=== PATIENT | male | born 1955 | race Caucasian/White ===

== ENCOUNTER 2017-02-17 19:37 | Inpatient (IN) | payer MEDICARE ==
[~2017-02-17] VITALS: Ht 177.8 cm; Wt 90.1 kg
[2017-02-17] MEDS: CLINDAMYCIN INJ 600 MG in SODIUM CHLORIDE 0.9% INJ 100 ML IV SCH (11:40)
[~2017-02-17 19:37] MED LIST: ACET325 NG; ACET650T10 PEG; ALPR.5 PO; CLON.3T TD; CLOT1%T TOPICAL; DABI150 PO; DIGO0.12 PO; DUONI NEB; FAMO20 PEG; FURO20 PO; KCL10 PO; LEVE500 PO; LEVEMIR SQ; METO100 PO; PRED20 PO; ST J81CH PEG; SYMB160A INH; THIA100T PO; TIOT18I INH; VALP250 PO; WARF5 PO; Z.0.OXYGENDME NC
[2017-02-17 19:53] VITALS: BP 120/68; PULSE 71; RESP 16; TEMP 98.5; O2SAT 97
[2017-02-17] MEDS ORDERED: COUM10TA PO (20:24)
[2017-02-17] MEDS ORDERED: SYMB160A INH (20:24)
[2017-02-17] MEDS ORDERED: LEVEMIR SQ (20:24)
[2017-02-17] MEDS ORDERED: ALPR.5 PO (20:24)
[2017-02-17] MEDS ORDERED: DIGO0.12 PO (20:24)
[2017-02-17] MEDS ORDERED: BACL10TA PO (20:24)
[2017-02-17] MEDS ORDERED: HYDR25TA5 PO (20:24)
[2017-02-17] MEDS ORDERED: NOVOLOGP2 SQ (20:26)
--- NOTE | 2017-02-17 21:12 | PD ---
HPI Chief Complaint: Skin Problem Time Seen by Provider: 21:09 Travel History International Travel<30 days: No Contact w/Intl Traveler<30days: No Traveled to known affect area: No History of Present Illness HPI 61-year-old male presents to the emergency department for evaluation of swelling , abscess formation to the right posterior neck. 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 Cartagena at [facility] in [place]. He states that he did have some swelling that was drained with stable removal after the surgery by his neurosurgeon. He states that he checks that his neurosurgeon couple of days ago notifying him of the swelling and he stated that he would see him on Sunday. The patient is concerned because the swelling has worsened. He reports localized pain. The patient states the swelling started again approximately 4 days ago. He denies any drainage. Patient states he has had low-grade fevers, 99-100. He has a past medical history of diabetes, hypertension, A. fib, COPD, mild TBI, encephalopathy, hepatitis C. PFSH Past Medical History Arthritis: No Asthma: No Autoimmune Disease: No Anxiety: No Depression: No Heart Rhythm Problems: Yes (afib) Cancer: No Cardiovascular Problems: Yes High Cholesterol: No Chemotherapy: No Chest Pain: No Congestive Heart Failure: No COPD: Yes Cerebrovascular Accident: No Diabetes: Yes Patient Takes Glucophage: No Endocrine: Yes Gastrointestinal Disorders: Yes GERD: No Genitourinary: No Headaches: Yes Hiatal Hernia: No Heparin Induced Thrombocytopen: No Hypertension: Yes Immune Disorder: No Implanted Vascular Access Dvce: No Kidney Stones: No Musculoskeletal: No Neurologic: Yes Psychiatric: Yes (chronic, unsure of dx) Reproductive: No Respiratory: Yes Immunizations Current: Yes Migraines: No Radiation Therapy: No Renal Failure: No Seizures: Yes Sickle Cell Disease: No Sleep Apnea: No Thyroid Disease: No Ulcer: No Tetanus Vaccination: Unknown Influenza Vaccination: Yes Past Surgical History Abdominal Surgery: No AICD: No Arteriovenous Shunt: No Cardiac Surgery: No Ear Surgery: No Endocrine Surgery: No Eye Surgery: No Genitourinary Surgery: No Gynecologic Surgery: No Insulin Pump: No Joint Replacement: No Neurologic Surgery: No Oral Surgery: No Pacemaker: No Thoracic Surgery: No Social History Alcohol Use: No Tobacco Use: No Substance Use: No Allergies-Medications (Allergen,Severity, Reaction): Coded Allergies: Penicillin (Verified Allergy, Unknown, 02/17/17) *MDRO Multi-Drug Resistant Organism (Verified Adverse Reaction, Unknown, ) MRSA Screen Positive 03/10/2016; MRSA (sputum-03/2016) Reported Meds & Prescriptions Reported Meds & Active Scripts Active Reported Novolog Inj (Insulin Aspart) 1,000 Unit/10 Ml Vial 0 SQ DIRECTED Sliding Scale as directed. Baclofen 10 Mg Tab 10 Mg PO TID PRN Xanax (Alprazolam) 0.5 Mg Tab 0.5 Mg PO Q8H PRN Levemir Inj (Insulin Detemir) 1,000 unit/ 10 ML Vial 15 Units SQ HS Do not mix with any other Insulin. Symbicort Inh (Budesonide/Formoterol Fumarate) 160-4.5 Mcg/Act Aero 2 Puff INH Q12HR Hydrochlorothiazide 25 Mg Tab 25 Mg PO DAILY Coumadin (Warfarin) 10 Mg Tab 10 Mg PO DAILY Digoxin 0.125 Mg Tab 0.125 Mg PO DAILY Review of Systems Except as stated in HPI: all other systems reviewed are Neg Physical Exam Narrative GENERAL: Well-nourished, well-developed male patient, afebrile. SKIN: Focused skin assessment warm/dry. Patient has a 12 cm x 10 cm area of fluctuance with erythema to the right posterior neck. No active drainage. HEAD: Normocephalic. Atraumatic. EYES: No scleral icterus. No injection or drainage. NECK: Supple, trachea midline. No JVD or lymphadenopathy. CARDIOVASCULAR: Regular rate and rhythm without murmurs, gallops, or rubs. RESPIRATORY: Breath sounds equal bilaterally. No accessory muscle use. Lungs sounds with expiratory wheezes noted throughout. GASTROINTESTINAL: Abdomen soft, non-tender, nondistended. MUSCULOSKELETAL: No cyanosis, or edema. BACK: Nontender without obvious deformity. No CVA tenderness. Data Data Last Documented VS Vital Signs Date Time Temp Pulse Resp B/P Pulse Ox O2 Delivery O2 Flow Rate FiO2 02/17/17 22:34 75 16 111/53 98 Nasal Cannula 2 02/17/17 19:53 98.5 Orders Iv Access Insert/Monitor (02/17/17 21:05) Complete Blood Count With Diff (02/17/17 21:05) Comprehensive Metabolic Panel (02/17/17 21:05) Act Partial Throm Time (Ptt) (02/17/17 21:05) Prothrombin Time / Inr (Pt) (02/17/17 21:05) Blood Culture (02/17/17 21:05) Lactic Acid Sepsis Protocol (02/17/17 21:05) Chest, Single Ap (02/17/17 ) Sodium Chlor 0.9% 1000 Ml Inj (Ns 1000 M (02/17/17 21:15) Ondansetron Inj (Zofran Inj) (02/17/17 21:15) Albuterol-Ipratropium Neb (Duoneb Neb) (02/17/17 21:15) Morphine Inj (Morphine Inj) (02/17/17 21:30) Vancomycin Inj (Vancomycin Inj) (02/17/17 22:30) Mri C Spine W&W/O Contrast (02/17/17 ) Mri Brain W&W/O Contrast (02/17/17 ) Potassium Chloride (Kcl) (02/17/17 22:30) Potassium Chlor 10 Meq Premix (Kcl 10 Me (02/17/17 22:30) Labs Laboratory Tests Test 02/17/17 21:30 White Blood Count 7.5 TH/MM3 Red Blood Count 5.34 MIL/MM3 Hemoglobin 13.6 GM/DL Hematocrit 41.1 % Mean Corpuscular Volume 77.0 FL Mean Corpuscular Hemoglobin 25.5 PG Mean Corpuscular Hemoglobin 33.2 % Concent Red Cell Distribution Width 15.6 % Platelet Count 192 TH/MM3 Mean Platelet Volume 7.9 FL Neutrophils (%) (Auto) 59.1 % Lymphocytes (%) (Auto) 29.4 % Monocytes (%) (Auto) 9.8 % Eosinophils (%) (Auto) 0.8 % Basophils (%) (Auto) 0.9 % Neutrophils # (Auto) 4.4 TH/MM3 Lymphocytes # (Auto) 2.2 TH/MM3 Monocytes # (Auto) 0.7 TH/MM3 Eosinophils # (Auto) 0.1 TH/MM3 Basophils # (Auto) 0.1 TH/MM3 CBC Comment DIFF FINAL Differential Comment Prothrombin Time 17.8 SEC Prothromb Time International 1.6 RATIO Ratio Activated Partial 34.5 SEC Thromboplast Time Sodium Level 129 MEQ/L Potassium Level 2.8 MEQ/L Chloride Level 86 MEQ/L Carbon Dioxide Level 36.0 MEQ/L Anion Gap 7 MEQ/L Blood Urea Nitrogen 7 MG/DL Creatinine 1.05 MG/DL Estimat Glomerular Filtration 72 ML/MIN Rate Random Glucose 128 MG/DL Lactic Acid Level 0.8 mmol/L Calcium Level 10.0 MG/DL Total Bilirubin 0.5 MG/DL Aspartate Amino Transf 23 U/L (AST/SGOT) Alanine Aminotransferase 29 U/L (ALT/SGPT) Alkaline Phosphatase 69 U/L Total Protein 7.5 GM/DL Albumin 3.9 GM/DL MDM Medical Decision Making Medical Screen Exam Complete: Yes Emergency Medical Condition: Yes Medical Record Reviewed: Yes Interpretation(s) Last Impressions Chest X-Ray 02/17/17 0000 Signed Impressions: Service Date/Time: Friday, February 17, 2017 21:07 - CONCLUSION: Slight bibasilar linear atelectasis. Noé Adams MD Differential Diagnosis abscess vs. cellulitis vs. sepsis Narrative Course 61-year-old male presents to the emergency department for evaluation of swelling and erythema to the right posterior neck. He reports history of meningioma removal from the brain stem by a physician at Dr. [facility] in [place]. Patient reports low-grade fevers at home. IV access established. CBC, CMP, PTT, PTT/INR, lactic acid, blood cultures 2 are ordered and pending. Chest x-ray and CT soft tissue of the neck with IV contrast is ordered and pending. Patient is given duoneb x 2 for wheezing. CBC shows no acute abnormality. CMP shows hyponatremia 129, hypokalemia at 2.8 , glucose 128. PT is 17.8, INR 1.6, PTT 34.5. Lactic acid is 0.8. Chest x- ray shows slight bibasilar linear atelectasis. Patient is given KCL 10meq IV and potassium 40 meq PO. I spoke with Dr. Rothman, neurosurgeon, who recommends MRI with and without contrast instead of MRI. This is ordered. He will see patient in the AM. MRI of the brain and c-spine with and without contrast are ordered and pending. Patient is given Vancomycin 1 gm IV. My attending physician, Dr. Ruiz will resume care and disposition of patient. Gissel Hughes Feb 17, 2017 21:12
[2017-02-17] MEDS ORDERED: ONDANSETRON HCL 4 MG/2 ML VIAL IV PUSH ONE (21:15)
[2017-02-17] MEDS ORDERED: SODIUM CHLOR 0.9% 1000 ML INJ 1,000 ML IV ONE (21:15)
[2017-02-17] MEDS: RESP: ALBUTEROL 2.5 MG/IPRATROPIUM 0.5 MG NEB (SCH) INH ×2 (21:28→21:29)
[2017-02-17] MEDS ORDERED: MORPHINE SULFATE 4 MG/ML INJ IV PUSH ONE (21:30)
--- NOTE | 2017-02-17 21:40 | RADRPT ---
EXAM DATE/TIME: 02/17/2017 21:07 [facility] COMPARISON: CHEST SINGLE AP, April 02, 2016, 3:46. INDICATIONS : Shortness of breath and mass on back of patients head. MEDICAL HISTORY : Chronic obstructive pulmonary disease. Hypertension Congestive heart failure. Hep. C, Seizures. SURGICAL HISTORY : Cholecystectomy. ENCOUNTER: Initial ACUITY: 1 week PAIN SCORE: 0/10 LOCATION: Bilateral chest FINDINGS: Slight bibasilar linear atelectasis is seen. Focal consolidation is not seen. Heart and mediastinum a re unremarkable for technique. CONCLUSION: Slight bibasilar linear atelectasis. Noé Adams MD on February 17, 2017 at 21:37 Board Certified Radiologist. This report was verified electronically.
[2017-02-17 21:41] LABS: AUTOMATED NEUTROPHIL # 4.4 TH/MM3 (1.8-7.7); BASOPHIL # 0.1 TH/MM3 (0-0.2); BASOPHIL % 0.9 % (0.0-2.0); EOSINOPHIL # 0.1 TH/MM3 (0-0.4); EOSINOPHIL % 0.8 % (0.0-4.0); HEMATOCRIT 41.1 % (39.0-51.0); HEMO FLAGS DIFF FINAL; LYMPH % 29.4 % (9.0-44.0); LYMPHOCYTE # 2.2 TH/MM3 (1.0-4.8); MEAN CORPUSCULAR HEMOGLOBIN 25.5 PG (27.0-34.0); MEAN CORPUSCULAR HGB CONC 33.2 % (32.0-36.0); MONO % 9.8 % (0.0-8.0); NEUT % 59.1 % (16.0-70.0); PLATELET COUNT 192 TH/MM3 (150-450); RED BLOOD COUNT 5.34 MIL/MM3 (4.50-5.90); RED CELL DISTRIBUTION WIDTH 15.6 % (11.6-17.2); WHITE BLOOD COUNT 7.5 TH/MM3 (4.0-11.0)
[2017-02-17 21:55] LABS: APTT (PATIENT) 34.5 SEC (24.3-30.1); INTERNATIONAL NORMALIZED RATIO 1.6 RATIO; PROTHROMBIN TIME - PATIENT 17.8 SEC (9.8-11.6)
[2017-02-17 22:19] LABS: ALKALINE PHOSPHATASE 69 U/L (45-117); ALT (GPT) 29 U/L (12-78); ANION GAP 7 MEQ/L (5-15); AST (GOT) 23 U/L (15-37); BLOOD UREA NITROGEN 7 MG/DL (7-18); CHLORIDE 86 MEQ/L (98-107); GLOMERULAR FILTRATION RATE 72 ML/MIN (>89); SODIUM (NA) 129 MEQ/L (136-145); TOTAL BILIRUBIN ADULT 0.5 MG/DL (0.2-1.0)
[2017-02-17 22:24] LABS: POTASSIUM 2.8 MEQ/L (3.5-5.1)
[2017-02-17] MEDS ORDERED: POTASSIUM CHLOR 10 MEQ PREMIX 100 ML IV ONE (22:30)
[2017-02-17] MEDS ORDERED: POTASSIUM CHLORIDE 20 MEQ CONTROLLED RELEASE TAB PO ONE (22:30)
[2017-02-17] MEDS ORDERED: VANCOMYCIN INJ 1,000 MG in SODIUM CHLOR 0.9% 250 ML INJ 250 ML IV ONE (22:30)
[2017-02-17 22:34] VITALS: BP 111/53; PULSE 75; RESP 16; O2SAT 98
[2017-02-17] MEDS ORDERED: CLINDAMYCIN INJ 600 MG in SODIUM CHLORIDE 0.9% INJ 100 ML IV ONE (23:00)
[2017-02-17] MEDS ORDERED: SODIUM CHLORID 0.9% 500 ML INJ 500 ML IV ONE (23:15)
[2017-02-17] MEDS ORDERED: HYDROmorphone HCL PF 1 MG/ML VIAL IV PUSH ONE (23:15)
[2017-02-18] VITALS (10 sets, daily range): BP systolic 84–110; BP diastolic 52–69; PULSE 67–105; RESP 16–18; TEMP 96.4–97.8; O2SAT 94–99
[2017-02-18] MEDS ORDERED: IOHEXOL 350 MG/ML 10 ML VIAL (for RAD DIAG) IV ONE (01:05)
--- NOTE | 2017-02-18 01:15 | RADRPT ---
EXAM DATE/TIME: 02/17/2017 23:37 [facility] COMPARISON: CT BRAIN W/O CONTRAST, March 22, 2016, 10:20. MRI BRAIN W/O CONTRAST, February 17, 2017, 23:37. INDICATIONS : Right neck swelling 6 weeks after posterior fossa meningioma resection. MEDICAL HISTORY : Meningioma resection SURGICAL HISTORY : Meningioma resection. ENCOUNTER: Subsequent ACUITY: 6 weeks PAIN SCORE: 5 LOCATION: Right upper neck TECHNIQUE: Multiplanar, multisequence MRI examination of the cervical spine was performed. FINDINGS: Study was abbreviated before axial images were obtained and before contrast could be given. The patie nt refused further imaging. Changes of right occipital craniotomy noted. There is a fluid collection in the craniotomy defect and overlying soft tissues of the right upper neck. The fluid collection is approximately 3.8 x 7.1 x 6.6 cm in size and, grossly, does not clearly communicate with the CSF spac es. There is mild mass effect on the lower margin of the right cerebellar hemisphere, for example ser ies 18 image 5. The fluid interdigitates focally between the posterior spinous processes of C1 and C2 but there is no mass effect on the cervical thecal sac or the cord. VERTEBRAE: Normal vertebral body height. Homogeneous marrow signal. ALIGNMENT: No evidence of subluxation. CORD: Normal configuration and signal. POST FOSSA: The cerebellar tonsils are normal in position. C2-C3: The disc is desiccated but otherwise normal. No significant foraminal or spinal stenosis demonstrated . C3-C4: The disc is desiccated. No significant loss of height. There is bulging of the disc annulus. No signi ficant foraminal or spinal stenosis demonstrated. C4-C5: The disc is desiccated and has mild loss of height. There is a small, broad posterior disc protrusion and probably a least mild bilateral uncovertebral and facet osteoarthritis. There appears to be a le ast mild foraminal stenosis on the left. There is mild spinal stenosis. C5-C6: The disc is desiccated and has moderate loss of height. There is a small, broad posterior disc osteop hyte complex and bilateral uncovertebral and facet osteoarthritis that is probably mild to moderate. There is suspected moderate right and mild left foraminal stenosis. There is mild spinal stenosis. C6-C7: The disc is desiccated and has moderate loss of height. There is a small, broad posterior disc osteop hyte complex and probably a least moderate bilateral uncovertebral and facet osteoarthritis. There is mild spinal stenosis and probably moderate bilateral foraminal stenosis. C7-T1: The disc is desiccated and has mild loss of height. Small, broad posterior disc osteophyte complex an d at least mild bilateral facet osteoarthritis present. There is mild right and moderate left foramin al stenosis. No significant spinal stenosis. CONCLUSION: 1. Limited, abbreviated study. Patient refused further imaging before axial images were obtained and before contrast could be given. 2. Postop right occipital craniotomy with a fairly large fluid collection in the craniotomy defect an d overlying soft tissues that is nonspecific but most likely a seroma. No definite communication with the CSF spaces. Mild mass effect on the right side of the cerebellum. Other than interdigitated mild ly between the posterior processes of C1 and C2, the fluid collection does not significantly impact t he cervical spine. 3. Multilevel cervical spine degenerative changes as above. There are mild degrees of spinal stenosis without cord compression or cord signal abnormality and multiple levels of upper moderate foraminal stenosis. Please see above. Beau Valle MD on February 18, 2017 at 1:01 Board Certified Radiologist. This report was verified electronically.
--- NOTE | 2017-02-18 01:27 | RADRPT ---
EXAM DATE/TIME: 02/18/2017 00:58 [facility] COMPARISON: No previous studies available for comparison. INDICATIONS : Right posterior neck pain and swelling. IV CONTRAST: 70 cc Omnipaque 350 (iohexol) IV RADIATION DOSE: 22.06 CTDIvol (mGy) MEDICAL HISTORY : Seizures. Deep venous thrombosis. Chronic obstructive pulmonary disease.Diabetes, hypertension SURGICAL HISTORY : None. ENCOUNTER: Initial ACUITY: 1 day PAIN SCALE: 5/10 LOCATION: neck TECHNIQUE: Volumetric scanning of the neck was performed. Using automated exposure control and adjustment of th e mA and/or kV according to patient size, radiation dose was kept as low as reasonably achievable to obtain optimal diagnostic quality images. FINDINGS: Patient is status post right occipital craniotomy for resection of a posterior fossa related to resec tion of a posterior fossa/skull base meningioma. Also right hemilaminotomy of C1. There is a fluid co llection in the craniotomy defect and soft tissues of the right upper neck that measures approximatel y 5.2 x 7.2 cm in greatest transaxial dimension and nearly 6 cm and proximal to distal length. It has a small component within the posterior fossa and with associated mild mass effect on the right infer olateral aspect of the cerebellum, for example series 3 image 33. No significant mass effect demonstr ated on the brainstem. I don't clearly see that the fluid collection communicates with the CSF spaces .Within the fluid collection is the craniotomy bone fragment. It is quite clearly displaced out of th e donor site. There are malleable plates attached to the craniotomy bone fragment. A loose screw is s een anteriorly within the fluid collection, series 4 image 42. CONCLUSION: 1. Right occipital craniotomy changes with an associated fluid collection as above, thought to most l ikely be a seroma. 2. The attempted fixation of the craniotomy bone fragment has failed. The bone fragment and 3 malleab le plates are displaced into the fluid collection. There is a loose screw but the 3 plates appear att ached to the craniotomy bone fragment by at least one screw each. Beau Valle MD on February 18, 2017 at 1:15 Board Certified Radiologist. This report was verified electronically.
--- NOTE | 2017-02-18 01:34 | RADRPT ---
EXAM DATE/TIME: 02/17/2017 23:37 [facility] COMPARISON: No previous studies available for comparison. INDICATIONS : Mass. CONTRAST: 0 cc Omniscan (gadodiamide) IV MEDICAL HISTORY : Chronic obstructive pulmonary disease. Hypertension. Diabetes mellitus type 2. Seizures, Brainstem me ningioma SURGICAL HISTORY : Brainstem meningioma sx five weeks ago. ENCOUNTER: Initial ACUITY: 3 months PAIN SCORE: 9/10 LOCATION: Right upper neck region. TECHNIQUE: Multiplanar, multisequence MRI of the brain was performed without contrast. FINDINGS: Limited study done, including axial and sagittal T1 images and axial diffusion weighted images. The p atient refused further imaging and contrast administration. Cerebral hemispheres have a grossly reilly l appearance. There is no evidence of infarction. Patient has had a right occipital craniotomy. A charging crane operator niotomy defect is present and with a fluid collection measuring approximately 5.2 x 7.2 x 6.0 cm with in the defect and soft tissues of the right, posterior upper neck. Evaluation is limited but I not co nvinced the fluid collection communicates with the CSF spaces. There is mild mass effect on the right cerebellar hemisphere. There is adequate CSF space around the brainstem noted. Mucoperiosteal thickening seen of the left maxillary cell. CONCLUSION: 1. Limited, abbreviated study. Please see above. 2. Right occipital craniotomy defect with a fluid collection, presumably a seroma. 3. No bleed or evidence of infarct. 4. Sinus disease. Beau Valle MD on February 18, 2017 at 1:26 Board Certified Radiologist. This report was verified electronically.
--- NOTE | 2017-02-18 01:58 | PD ---
Physical Exam Date Seen by Provider: Feb 18, 2017 Time Seen by Provider: 23:30 Narrative accepted in transfer of care from [facility] GENERAL: Well-developed elderly male in no acute distress no respiratory distress; GCS 15 SKIN: Warm and dry. HEAD: Normocephalic. EYES: No scleral icterus. No injection or drainage. NECK: Supple, trachea midline. No JVD or lymphadenopathy. Large right posterior occiput and right-sided posterior neck mass with induration tenderness around a healed postoperative site with central fluctuance. No spontaneous drainage. Decreased range of motion of neck secondary to soft tissue mass and swelling. CARDIOVASCULAR: Regular rate and rhythm without murmurs, gallops, or rubs. RESPIRATORY: Breath sounds equal bilaterally. No accessory muscle use. Data Data Last Documented VS Vital Signs Date Time Temp Pulse Resp B/P Pulse Ox O2 Delivery O2 Flow Rate FiO2 02/18/17 01:44 71 16 110/69 99 Nasal Cannula 2 02/17/17 19:53 98.5 Orders Iv Access Insert/Monitor (02/17/17 21:05) Complete Blood Count With Diff (02/17/17 21:05) Comprehensive Metabolic Panel (02/17/17 21:05) Act Partial Throm Time (Ptt) (02/17/17 21:05) Prothrombin Time / Inr (Pt) (02/17/17 21:05) Blood Culture (02/17/17 21:05) Lactic Acid Sepsis Protocol (02/17/17 21:05) Chest, Single Ap (02/17/17 ) Sodium Chlor 0.9% 1000 Ml Inj (Ns 1000 M (02/17/17 21:15) Ondansetron Inj (Zofran Inj) (02/17/17 21:15) Albuterol-Ipratropium Neb (Duoneb Neb) (02/17/17 21:15) Morphine Inj (Morphine Inj) (02/17/17 21:30) Vancomycin Inj (Vancomycin Inj) (02/17/17 22:30) Potassium Chloride (Kcl) (02/17/17 22:30) Potassium Chlor 10 Meq Premix (Kcl 10 Me (02/17/17 22:30) Clindamycin Inj (Cleocin Inj) (02/17/17 23:00) Sodium Chlorid 0.9% 500 Ml Inj (Ns 500 M (02/17/17 23:15) Hydromorphone Pf Inj (Dilaudid Pf Inj) (02/17/17 23:15) Ct Soft Tiss Neck W Iv Cont (02/18/17 ) Mri C Spine W/O Contrast (02/17/17 ) Mri Brain W/O Contrast (02/17/17 ) Iohexol 350 Inj (Omnipaque 350 Inj) (02/18/17 01:05) Electrocardiogram (02/18/17 ) Admit Order (Ed Use Only) (02/18/17 ) ^ Saline Lock (02/18/17 02:21) Resp Oxygen Fred C Titrat 1-4 L (02/18/17 ) Notify Dr: Other (02/18/17 02:21) Sodium Chloride 0.9% Flush (Ns Flush) (02/18/17 09:00) Sodium Chloride 0.9% Flush (Ns Flush) (02/18/17 02:30) Consult Neurosurgery (02/18/17 02:21) Admit To Inpatient (02/18/17 ) Vital Signs (Adult) Q4H (02/18/17 02:20) Activity Bed Rest With Brp (02/18/17 02:20) Sodium Chloride 0.9% Flush (Ns Flush) (02/18/17 02:30) Sodium Chloride 0.9% Flush (Ns Flush) (02/18/17 09:00) Acetaminophen (Tylenol) (02/18/17 02:30) Ondansetron Inj (Zofran Inj) (02/18/17 02:30) Basic Metabolic Panel (Bmp) (02/19/17 06:00) Complete Blood Count With Diff (02/19/17 06:00) Resp Oxygen Fred C Titrat 1-4 L (02/18/17 ) Scd Bilateral/Knee High GARRICK.BID (02/18/17 02:20) Naloxone Inj (Narcan Inj) (02/18/17 02:30) Inpatient Certification (02/18/17 ) Clindamycin Inj (Cleocin Inj) (02/18/17 10:00) Vancomycin Consult Pharmacy (Vancomycin (02/18/17 02:30) Diet Diabetic (02/18/17 Breakfast) Bedside Glucose GARRICK.AC&HS (02/18/17 02:20) Blood Glucose Goal (Criteria) (02/18/17 02:20) Hypoglycemia 51 - 69 Mg/Dl (02/18/17 02:20) Hypoglycemia 50 Mg/Dl Or < (02/18/17 02:20) Notify Dr: Other (02/18/17 02:20) Dextrose 50% In Tab (Vial) Inj (D50w (Vi (02/18/17 02:30) Glucagon Inj (Glucagon Inj) (02/18/17 02:30) Insulin Aspart Supplemtl Scale (Novolog (02/18/17 07:00) Labs Laboratory Tests Test 02/17/17 21:30 White Blood Count 7.5 TH/MM3 Red Blood Count 5.34 MIL/MM3 Hemoglobin 13.6 GM/DL Hematocrit 41.1 % Mean Corpuscular Volume 77.0 FL Mean Corpuscular Hemoglobin 25.5 PG Mean Corpuscular Hemoglobin 33.2 % Concent Red Cell Distribution Width 15.6 % Platelet Count 192 TH/MM3 Mean Platelet Volume 7.9 FL Neutrophils (%) (Auto) 59.1 % Lymphocytes (%) (Auto) 29.4 % Monocytes (%) (Auto) 9.8 % Eosinophils (%) (Auto) 0.8 % Basophils (%) (Auto) 0.9 % Neutrophils # (Auto) 4.4 TH/MM3 Lymphocytes # (Auto) 2.2 TH/MM3 Monocytes # (Auto) 0.7 TH/MM3 Eosinophils # (Auto) 0.1 TH/MM3 Basophils # (Auto) 0.1 TH/MM3 CBC Comment DIFF FINAL Differential Comment Prothrombin Time 17.8 SEC Prothromb Time International 1.6 RATIO Ratio Activated Partial 34.5 SEC Thromboplast Time Sodium Level 129 MEQ/L Potassium Level 2.8 MEQ/L Chloride Level 86 MEQ/L Carbon Dioxide Level 36.0 MEQ/L Anion Gap 7 MEQ/L Blood Urea Nitrogen 7 MG/DL Creatinine 1.05 MG/DL Estimat Glomerular Filtration 72 ML/MIN Rate Random Glucose 128 MG/DL Lactic Acid Level 0.8 mmol/L Calcium Level 10.0 MG/DL Total Bilirubin 0.5 MG/DL Aspartate Amino Transf 23 U/L (AST/SGOT) Alanine Aminotransferase 29 U/L (ALT/SGPT) Alkaline Phosphatase 69 U/L Total Protein 7.5 GM/DL Albumin 3.9 GM/DL [facility] Medical Record Reviewed: Yes Supervised Visit with ALBERT: Yes Interpretation(s) EKG normal sinus rhythm first degree AV block no acute ST elevation or injury pattern change noted Last Impressions Chest X-Ray 02/17/17 0000 Signed Impressions: Service Date/Time: Friday, February 17, 2017 21:07 - CONCLUSION: Slight bibasilar linear atelectasis. Noé Adams MD CBC & BMP Diagram 02/17/17 21:30 CT soft tissue neck w/ contrast: CONCLUSION: 1. Right occipital craniotomy changes with an associated fluid collection as above, thought to most likely be a seroma. 2. The attempted fixation of the craniotomy bone fragment has failed. The bone fragment and 3 malleable plates are displaced into the fluid collection. There is a loose screw but the 3 plates appear attached to the craniotomy bone fragment by at least one screw each. Beau Valle MD on February 18, 2017 at 1:15 Board Certified Radiologist. This report was verified electronically. Differential Diagnosis Cellulitis, seroma, mass, abscess Narrative Course Case discussed with neurosurgery imaging studies ordered MR tech at bedside reporting patient refusing imaging study this was discussed in detail with the patient who is agreeable with proceeding with imaging study with administration of pain medication; additional pain medicine Dilaudid 0.5 mg IV administered Patient still and imaging Patient returned from digital imaging technician reports that patient very difficult to scan with limited imaging studies able to be performed patient voicing no complaints or concerns other than ongoing neck discomfort but does not request any pain medication at this time; in view of difficulty with MR studies will proceed with CT of the soft tissue neck with IV contrast Imaging studies remain pending At 1:50 AM review of imaging studies that have been resulted identifies fluid collection that is suspicious for seroma however shows that craniotomy was not successful; call placed to neurosurgeon radio communications superintendent Case discussed in detail with neurosurgery because patient to be admitted to medicine will consult on the patient in the a.m. with anticipated surgery on Sunday and Coumadin is to be held. Patient is aware plan for admission and is agreeable to this. Physician Communication Physician Communication call placed to TRE dover resulted and discussed --admit to medicine, hold coumadin Diagnosis Primary Impression: Seroma Additional Impressions: A-fib Qualified Code: I48.2 - Chronic atrial fibrillation COPD (chronic obstructive pulmonary disease) Qualified Code: J44.9 - Chronic obstructive pulmonary disease, unspecified COPD type Admitting Information Admitting Physician Requests: Admit Eva Ruiz MD Feb 18, 2017 01:58
[2017-02-18] MEDS ORDERED: ACETAMINOPHEN 325 MG TAB PO PRN (02:30)
[2017-02-18] MEDS ORDERED: NALOXONE HCL 0.4 MG/ML AMP IV PRN (02:30)
[2017-02-18] MEDS ORDERED: SODIUM CHLORIDE 0.9% FLUSH 10 ML FLUSH IVF PRN (02:30)
[2017-02-18] MEDS ORDERED: DEXTROSE 50% IN WATER 50 ML VIAL(D50) IV PUSH PRN (02:30)
[2017-02-18] MEDS ORDERED: Vancomycin Consult Pharmacy 1 EA OTHER SCH (02:30)
[2017-02-18] MEDS ORDERED: GLUCAGON 1 MG/ML VIAL OTHER PRN (02:30)
[2017-02-18] MEDS ORDERED: ONDANSETRON HCL 4 MG/2 ML VIAL IVP PRN (02:30)
[2017-02-18] MEDS ORDERED: ACETAMINOPHEN 325 MG TAB PO ONE (02:45)
[2017-02-18] MEDS: RESP: ALBUTEROL 2.5 MG/IPRATROPIUM 0.5 MG NEB (PRN) NEB ×2 (05:26→13:21)
[2017-02-18] MEDS: BACLOFEN 10 MG TAB PO PRN ×2 (05:37→15:17)
[2017-02-18] MEDS: ALPRAZolam 0.5 MG TAB PO PRN ×3 (05:37→23:35)
[2017-02-18] MEDS: INSULIN ASPART SUPPLEMENTAL SCALE SQ SCH ×4 (06:50→21:01)
[2017-02-18] MEDS: DIGOXIN 0.125 MG TAB PO SCH (08:34)
[2017-02-18] MEDS: HYDROCHLOROTHIAZIDE 25 MG TAB PO SCH ×2 (08:36→09:00)
[2017-02-18] MEDS: SODIUM CHLORIDE 0.9% FLUSH 10 ML FLUSH IV FLUSH SCH ×2 (08:36→21:00)
[2017-02-18] MEDS: BUDESONIDE-FORMOTEROL 160/4.5 MCG INHALER INH SCH ×2 (09:00→21:00)
[2017-02-18] MEDS ORDERED: SODIUM CHLORIDE 0.9% FLUSH 10 ML FLUSH IV FLUSH SCH (09:00)
[2017-02-18] MEDS: VANCOMYCIN 1,000 MG/NS 250 ML IV SCH ×4 (11:57→23:36)
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
--- NOTE | 2017-02-18 12:42 | PD.CONS ---
REASON FOR CONSULTATION: Right suboccipital/cervical seroma/pseudomeningocele HISTORY OF PRESENT ILLNESS: 61-year-old gentleman with history of a right retromastoid approach for resection of meningioma done approximately [address] Cartagena at [facility]. Patient states that a few days after surgery he developed swelling around the surgical area. The swelling and pain has gotten progressively worse within the last few days reason why he came to the emergency department last night for evaluation. MRI of the cervical spine from 02/17/2017 showed evidence of the right occipital craniotomy and a deflated collection in the craniotomy defect and overlying the soft tissues and the right upper cervical region. The fluid collection is approximately 476 cm in size and does not clearly communicate with the CSF spaces. The CT of the cervical spine also shows right hemilaminectomy defect at the C1 level and the right C1 arch and plates are loose within the fluid collection. Patient denies any neurological deficits. Started on empiric vancomycin and clindamycin. PAST MEDICAL HISTORY: COPD, atrial fibrillation on Coumadin, hepatitis C, seizures, traumatic brain injury, diabetes mellitus, hypertension, CHF PAST SURGICAL HISTORY: As above, meningioma resection PAST SOCIAL HISTORY: no smoking, no ETOH or illicit drug use FAMILY HISTORY: no intracranial or spinal conditions ALLERGIES: MDRO, penicillin Active Medications Acetaminophen (Tylenol) 650 mg Q4H PRN PO Last administered on 02/18/17 08:36 ; Admin Dose 650 MG; Start 02/18/17 at 02:30 Acetaminophen 650 mg 650 mg ONCE ONCE PO Last administered on 02/18/17 02:42; Admin Dose 650 MG; Start 02/18/17 at 02:45; Stop 02/18/17 at 02:46; Status DC Albuterol/ Ipratropium (Duoneb Neb) 1 ampule Q15M INH Last administered on 21:29; Admin Dose 1 AMPULE; Start 02/17/17 at 21:15; Stop 02/17/17 at 21:31 ; Status DC Alprazolam (Xanax) 0.5 mg Q8H PRN PO Last administered on 02/18/17 05:37; Admin Dose 0.5 MG; Start 02/18/17 at 02:30 Baclofen (Lioresal) 10 mg TID PRN PO Last administered on 02/18/17 05:37; Admin Dose 10 MG; Start 02/18/17 at 02:30 Budesonide/ Formoterol Fumarate (Symbicort 160-4.5 Inh) 2 puff Q12HR INH; Start 02/18/17 at 09:00 Clindamycin Phosphate 600 mg/ Sodium Chloride 104 ml @ 208 mls/hr ONCE ONCE IV Last administered on 02/18/17 02:23; Admin Dose 208 MLS/HR; Start 02/17/17 at 23:00; Stop 02/17/17 at 23:29; Status DC Clindamycin Phosphate 600 mg/ Sodium Chloride 104 ml @ 208 mls/hr Q8H IV Last administered on 02/17/17 11:40; Admin Dose 208 MLS/HR; Start 02/18/17 at 10:00 Dextrose (D50w (Vial) Inj) 25 ml UNSCH PRN IV PUSH; Start 02/18/17 at 02:30 Digoxin (Lanoxin) 0.125 mg DAILY PO Last administered on 02/18/17 08:34; Admin Dose 0.125 MG; Start 02/18/17 at 09:00 Glucagon (Glucagon Inj) 1 mg UNSCH PRN OTHER; Start 02/18/17 at 02:30 Hydrochlorothiazide (Hydrodiuril) 25 mg DAILY PO; Start 02/18/17 at 09:00 Hydromorphone HCl (Dilaudid Pf Inj) 0.5 mg ONCE ONCE IV PUSH Last administered on 02/17/17 23:27; Admin Dose 0.5 MG; Start 02/17/17 at 23:15; Stop 02/17/17 at 23:16; Status DC Iohexol (Omnipaque 350 Inj) 70 ml STK-MED ONCE IV Last administered on 01:05; Admin Dose 70 ML; Start 02/18/17 at 01:05; Stop 02/18/17 at 01:06; Status DC Miscellaneous Information SPECIFIC LAB TO BE DRAWN:VANCOMY... ONCE ONCE .XX; Start 02/19/17 at 10:45; Stop 02/19/17 at 10:46 Morphine Sulfate 4 mg 4 mg ONCE ONCE IV PUSH Last administered on 02/17/17 21: 40; Admin Dose 4 MG; Start 02/17/17 at 21:30; Stop 02/17/17 at 21:31; Status DC Naloxone HCl 0.4 mg 0.4 mg UNSCH PRN IV; Start 02/18/17 at 02:30 Ondansetron HCl (Zofran Inj) 4 mg ONCE ONCE IV PUSH Last administered on 21:40; Admin Dose 4 MG; Start 02/17/17 at 21:15; Stop 02/17/17 at 21:16; Status DC Ondansetron HCl (Zofran Inj) 4 mg Q6H PRN IVP; Start 02/18/17 at 02:30 Pharmacy Profile Note (Vancomycin Consult Pharmacy) 0 ml @ 0 mls/hr UNSCH OTHER ; Start 02/18/17 at 02:30 Potassium Chloride 40 meq 40 meq ONCE ONCE PO Last administered on 02/17/17 22 :41; Admin Dose 40 MEQ; Start 02/17/17 at 22:30; Stop 02/17/17 at 22:31; Status DC Potassium Chloride 100 ml @ 100 mls/hr BOLUS ONCE IV Last administered on 02/18 00:35; Admin Dose 100 MLS/HR; Start 02/17/17 at 22:30; Stop 02/17/17 at 23 :29; Status DC Sodium Chloride (NS 1000 ml Inj) 1,000 ml @ 999 mls/hr BOLUS ONCE IV Last administered on 02/17/17 21:40; Admin Dose 999 MLS/HR; Start 02/17/17 at 21:15 ; Stop 02/17/17 at 22:15; Status DC Sodium Chloride (NS 500 ml Inj) 500 ml @ 500 mls/hr BOLUS ONCE IV Last administered on 02/18/17 00:35; Admin Dose 500 MLS/HR; Start 02/17/17 at 23:15 ; Stop 02/18/17 at 00:14; Status DC Sodium Chloride (NS Flush) 2 ml BID IV FLUSH; Start 02/18/17 at 09:00; Stop at 09:00; Status DC Sodium Chloride (NS Flush) 2 ml BID IV FLUSH Last administered on 02/18/17 08: 36; Admin Dose 2 ML; Start 02/18/17 at 09:00 Sodium Chloride (NS Flush) 2 ml UNSCH PRN IV FLUSH; Start 02/18/17 at 02:30 Sodium Chloride (NS Flush) 2 ml UNSCH PRN IVF; Start 02/18/17 at 02:30; Stop at 02:39; Status DC Vancomycin HCl/ Sodium Chloride (Vancomycin Inj/ NS 250 ml Inj) 250 ml @ 250 mls/hr ONCE ONCE IV Last administered on 02/17/17 22:34; Admin Dose 250 MLS/HR ; Start 02/17/17 at 22:30; Stop 02/17/17 at 23:29; Status DC Vancomycin HCl/ Sodium Chloride (Vancomycin Inj/ NS 250 ml Inj) 250 ml @ 250 mls/hr Q12H IV Last administered on 02/18/17 11:57; Admin Dose 250 MLS/HR; Start 02/18/17 at 11:00 REVIEW OF SYSTEMS: Constitutional: fatigue. Eyes: no infection, blurred or double vision. Cardiovascular: no chest pain or palpitations. Gastrointestinal: no nausea, vomiting or diarrhea. Genitourinary: no incontinence or painful urination. Neurological: look at HPI Hematologic: no anemia or easy bruising Musculoskeletal: look at HPI Endocrine: no unexplained changes in weight Integumentary: not known skin lesions PHYSICAL EXAMINATION: VITALS SIGNS: Vital Signs Date Time Temp Pulse Resp B/P Pulse Ox O2 Delivery O2 Flow Rate FiO2 02/18/17 08:52 96 Nasal Cannula 3.00 02/18/17 08:00 97.8 67 18 97/52 HEENT: Normocephalic/atraumatic. No facial dysmorphic features are present. Eyes, ears, nose and throat are normal and mucous membranes are moist. There is a large subcutaneous fluid collection around the right suboccipital and upper cervical region, tender. There is a well-healed incision around the right retromastoid region. No evidence of drainage or infection SKIN: devoid of any neurocutaneous disorders. CV: heart is in regular rate and rhythm without murmur. ABD: benign, soft, flat, and without hepatosplenomegaly or tenderness. EXTREM: warm and without edema, clubbing, or cyanosis. NEUROLOGICAL EXAMINATION: MENTAL STATUS: The patient is awake, alert and fully oriented with normal speech and language. CRANIAL NERVES: Pupils are equal, round, and reactive to light accommodation. Visual brody are full. No vertical or horizontal nyastagmus is noted and visual pursuits were smooth. Gaze is conjugate and extraocular movements are full and without limitation. Face symmetric, tongue midline. Shoulder shrug and sternocleidomastiod strength symmetric and strong. MOTOR: Muscle strength : Strength reported on scale of 1-5, 5 being full strength. R/L = Right/Left. UPPER EXTREMITY: Deltoid R5/L5, Biceps R5/L5, Triceps R5/L5, Wrist extensors R5/L5, Hand instrinsics R5/L5 . LOWER EXTREMITY: Iliopsoas R5/L5, Quadriceps R5/L5, Tib anterior R5/L5, EHL R5/L5, Gastrocnemius R5/L5 SENSORY: unremarkable to light touch and pinprick throughout. REFLEXES: 2+ and symmetric bilaterally. No hyperreflexia or pathological reflexes noted. 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 Patient was on Coumadin and this is on hold for now. I discussed his case in detail with Dr. Perez and he will see him in the morning tomorrow. The patient will need a surgical intervention for evaluation of the collection and repositioning of the C1 arch and plates. Currently neurologically intact and surgery will plan within the next few days when he is medically optimized. RECOMMENDATIONS: Continue empiric IV antibiotics. Medical clearance for surgical intervention to be set up by within the next few days Keep on hold Coumadin. Pain management Thank you for allowing me to participate in the care of your patient. If I can be of future assistance or should you have any questions about this or any other patient, please do not hesitate to contact me. Kirby Rothman M.D. Neurosurgeon Kirby Parsons MD Feb 18, 2017 12:42
[2017-02-18 14:15] LABS: POTASSIUM 3.3 MEQ/L (3.5-5.1)
[2017-02-18 14:20] LABS: MAGNESIUM 2.1 MG/DL (1.5-2.5)
[2017-02-18] MEDS ORDERED: ACETAMINOPHEN/HYDROcodone 325 MG/10 MG TAB PO PRN (16:00)
[2017-02-18] MEDS ORDERED: SODIUM PHOSPHATE INJ 15 MMOL in SODIUM CHLORIDE 0.9% INJ 150 ML IV ONE (17:15)
[2017-02-18] MEDS ORDERED: POTASSIUM CHLORIDE 20 MEQ CONTROLLED RELEASE TAB PO ONE (17:15)
[2017-02-18] MEDS: CLINDAMYCIN INJ 600 MG in SODIUM CHLORIDE 0.9% INJ 100 ML IV SCH (18:05)
[2017-02-18] MEDS: RESP: ALBUTEROL 2.5 MG/IPRATROPIUM 0.5 MG NEB (SCH) NEB ×2 (18:20→21:46)
--- NOTE | 2017-02-18 18:43 | EKG ---
Date Performed: 02/18/2017 Time Performed: 02:51:59 PTAGE: 61 years EKG: Sinus rhythm WITH FIRST DEGREE AV BLOCK ABNORMAL ECG PREVIOUS TRACING : 03/26/2016 01.24 Compared to the previous tracing [place] longer DOCTOR: Ron Holley Interpretating Date/Time 02/18/2017 18:41:14
[2017-02-18] MEDS: guaiFENesin E.R. 600 MG TAB PO SCH (21:01)
[2017-02-18] MEDS: oxyCODONE/ACETAMINOPHEN 10 MG/325 MG TAB PO PRN (21:02)
[2017-02-19] VITALS (8 sets, daily range): BP systolic 95–122; BP diastolic 45–75; PULSE 64–122; RESP 16–20; TEMP 97.2–98.9; O2SAT 93–98
[2017-02-19] MEDS: CLINDAMYCIN INJ 600 MG in SODIUM CHLORIDE 0.9% INJ 100 ML IV SCH ×3 (02:28→17:55)
[2017-02-19] MEDS: oxyCODONE/ACETAMINOPHEN 10 MG/325 MG TAB PO PRN ×4 (03:40→21:27)
[2017-02-19] MEDS: RESP: ALBUTEROL 2.5 MG/IPRATROPIUM 0.5 MG NEB (SCH) NEB ×4 (04:18→21:21)
[2017-02-19] MEDS: INSULIN ASPART SUPPLEMENTAL SCALE SQ SCH ×4 (07:00→21:00)
[2017-02-19 07:40] LABS: AUTOMATED NEUTROPHIL # 3.1 TH/MM3 (1.8-7.7); BASOPHIL % 0.6 % (0.0-2.0); EOSINOPHIL # 0.1 TH/MM3 (0-0.4); EOSINOPHIL % 1.1 % (0.0-4.0); HEMATOCRIT 34.2 % (39.0-51.0); HEMO FLAGS DIFF FINAL; LYMPH % 24.2 % (9.0-44.0); LYMPHOCYTE # 1.2 TH/MM3 (1.0-4.8); MEAN CELL VOLUME 78.5 FL (80.0-100.0); MEAN CORPUSCULAR HEMOGLOBIN 25.4 PG (27.0-34.0); MEAN CORPUSCULAR HGB CONC 32.4 % (32.0-36.0); MONO % 10.5 % (0.0-8.0); NEUT % 63.6 % (16.0-70.0); PLATELET COUNT 151 TH/MM3 (150-450); RED BLOOD COUNT 4.36 MIL/MM3 (4.50-5.90); RED CELL DISTRIBUTION WIDTH 15.9 % (11.6-17.2); WHITE BLOOD COUNT 4.9 TH/MM3 (4.0-11.0)
[2017-02-19 08:16] LABS: BICARBONATE 27.3 MEQ/L (21.0-32.0); POTASSIUM 3.4 MEQ/L (3.5-5.1)
[2017-02-19] MEDS: DIGOXIN 0.125 MG TAB PO SCH (08:25)
[2017-02-19] MEDS: guaiFENesin E.R. 600 MG TAB PO SCH ×2 (08:25→21:27)
[2017-02-19] MEDS: HYDROCHLOROTHIAZIDE 25 MG TAB PO SCH (08:26)
[2017-02-19] MEDS: SODIUM CHLORIDE 0.9% FLUSH 10 ML FLUSH IV FLUSH SCH ×2 (08:27→21:00)
[2017-02-19] MEDS: BUDESONIDE-FORMOTEROL 160/4.5 MCG INHALER INH SCH ×2 (08:28→21:00)
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
[2017-02-19] MEDS ORDERED: POTASSIUM CHLORIDE 20 MEQ CONTROLLED RELEASE TAB PO ONE ×2 (09:30→11:30)
[2017-02-19] MEDS ORDERED: PHARMACY ORDERED LAB ONE (10:45)
[2017-02-19] MEDS: ACETAMIN 325 MG/BUTALBITAL 50 MG/CAFFEINE 40 MG TAB PO PRN (10:51)
[2017-02-19] MEDS: SODIUM CHLOR 0.9% 1000 ML INJ 1,000 ML IV SCH ×2 (11:11→21:27)
[2017-02-19] MEDS: VANCOMYCIN 1,000 MG/NS 250 ML IV SCH ×4 (12:18→21:28)
[2017-02-19] MEDS: ALPRAZolam 0.5 MG TAB PO PRN (16:16)
--- NOTE | 2017-02-19 17:34 | HHI.NSPN ---
(Reji Paez) Note Status Status: Progress Note (PhilippeReji HERMAN) Interval History Interval History 02/18: 61-year-old gentleman with history of a right retromastoid approach for resection of meningioma done approximately [address] Cartagena at [facility]. Patient states that a few days after surgery he developed swelling around the surgical area. The swelling and pain has gotten progressively worse within the last few days reason why he came to the emergency department last night for evaluation. MRI of the cervical spine from 02/17/2017 showed evidence of the right occipital craniotomy and a deflated collection in the craniotomy defect and overlying the soft tissues and the right upper cervical region. The fluid collection is approximately 476 cm in size and does not clearly communicate with the CSF spaces. The CT of the cervical spine also shows right hemilaminectomy defect at the C1 level and the right C1 arch and plates are loose within the fluid collection. Patient denies any neurological deficits. Started on empiric vancomycin and clindamycin. 02/19: Patient is awake & alert when seen this afternoon. He complains of neck pain, headache and numbness to the swelling on the right side of his head & neck. The patient does live in the [place] area but also stated "I don't want to deal with that samuel no more and he don't want to see me either." (Reji Paez) Labs, Micro, & Vital Signs Results Allergies Coded Allergies Type Severity Reaction Last Updated Verified Penicillin Allergy Unknown 02/17/17 Yes *MDRO Multi-Drug Resistant Organism Adverse Reaction Unknown 02/19/17 Yes Recent Impressions Neck CT 02/18/17 0000 Signed Impressions: Service Date/Time: Saturday, February 18, 2017 00:58 - CONCLUSION: 1. Right occipital craniotomy changes with an associated fluid collection as above, thought to most likely be a seroma. 2. The attempted fixation of the craniotomy bone fragment has failed. The bone fragment and 3 malleable plates are displaced into the fluid collection. There is a loose screw but the 3 plates appear attached to the craniotomy bone fragment by at least one screw each. Beau Valle MD Chest X-Ray 02/17/17 Signed Impressions: Service Date/Time: Friday, February 17, 2017 21:07 - CONCLUSION: Slight bibasilar linear atelectasis. Noé Adams MD Cervical Spine MRI 02/17/17 Signed Impressions: Service Date/Time: Friday, February 17, 2017 23:37 - CONCLUSION: 1. Limited, abbreviated study. Patient refused further imaging before axial images were obtained and before contrast could be given. 2. Postop right occipital craniotomy with a fairly large fluid collection in the craniotomy defect and overlying soft tissues that is nonspecific but most likely a seroma. No definite communication with the CSF spaces. Mild mass effect on the right side of the cerebellum. Other than interdigitated mildly between the posterior processes of C1 and C2, the fluid collection does not significantly impact the cervical spine. 3. Multilevel cervical spine degenerative changes as above. There are mild degrees of spinal stenosis without cord compression or cord signal abnormality and multiple levels of upper moderate foraminal stenosis. Please see above. Beau Valle MD Brain MRI 02/17/17 Signed Impressions: Service Date/Time: Friday, February 17, 2017 23:37 - CONCLUSION: 1. Limited, abbreviated study. Please see above. 2. Right occipital craniotomy defect with a fluid collection, presumably a seroma. 3. No bleed or evidence of infarct. 4. Sinus disease. Beau Valle MD //174/174/175// 06:00 18:00 06:00 18:00 06: 18:00 Intake Total 720 ml 480 ml 720 ml Output Total 325 ml Balance 395 ml 480 ml 720 ml Intake Oral 720 ml 480 ml 720 ml Output Urine Total 325 ml # Voids 3 2 3 # Bowel Movements 0 0 0 Laboratory Tests Test 02/17/17 02/18/17 02/19/17 02/19/17 21:30 13:12 06:30 10:55 White Blood Count 7.5 TH/MM3 4.9 TH/MM3 Red Blood Count 5.34 MIL/MM3 4.36 MIL/MM3 Hemoglobin 13.6 GM/DL 11.1 GM/DL Hematocrit 41.1 % 34.2 % Mean Corpuscular Volume 77.0 FL 78.5 FL Mean Corpuscular Hemoglobin 25.5 PG 25.4 PG Mean Corpuscular Hemoglobin 33.2 % 32.4 % Concent Red Cell Distribution Width 15.6 % 15.9 % Platelet Count 192 TH/MM3 151 TH/MM3 Mean Platelet Volume 7.9 FL 7.9 FL Neutrophils (%) (Auto) 59.1 % 63.6 % Lymphocytes (%) (Auto) 29.4 % 24.2 % Monocytes (%) (Auto) 9.8 % 10.5 % Eosinophils (%) (Auto) 0.8 % 1.1 % Basophils (%) (Auto) 0.9 % 0.6 % Neutrophils # (Auto) 4.4 TH/MM3 3.1 TH/MM3 Lymphocytes # (Auto) 2.2 TH/MM3 1.2 TH/MM3 Monocytes # (Auto) 0.7 TH/MM3 0.5 TH/MM3 Eosinophils # (Auto) 0.1 TH/MM3 0.1 TH/MM3 Basophils # (Auto) 0.1 TH/MM3 0.0 TH/MM3 CBC Comment DIFF FINAL DIFF FINAL Differential Comment Prothrombin Time 17.8 SEC Prothromb Time International 1.6 RATIO Ratio Activated Partial 34.5 SEC Thromboplast Time Sodium Level 129 MEQ/L 136 MEQ/L Potassium Level 2.8 MEQ/L 3.3 MEQ/L 3.4 MEQ/L Chloride Level 86 MEQ/L 100 MEQ/L Carbon Dioxide Level 36.0 MEQ/L 27.3 MEQ/L Anion Gap 7 MEQ/L 9 MEQ/L Blood Urea Nitrogen 7 MG/DL 6 MG/DL Creatinine 1.05 MG/DL 0.85 MG/DL Estimat Glomerular Filtration 72 ML/MIN 91 ML/MIN Rate Random Glucose 128 MG/DL 139 MG/DL Lactic Acid Level 0.8 mmol/L Calcium Level 10.0 MG/DL 9.0 MG/DL Total Bilirubin 0.5 MG/DL Aspartate Amino Transf 23 U/L (AST/SGOT) Alanine Aminotransferase 29 U/L (ALT/SGPT) Alkaline Phosphatase 69 U/L Total Protein 7.5 GM/DL Albumin 3.9 GM/DL Phosphorus Level 2.3 MG/DL Magnesium Level 2.1 MG/DL Vancomycin Level Trough 11.0 MCG/ML Test 02/19/17 11:10 Nasal Screen MRSA (PCR) MRSA DETECTED Constitutional Vital Signs Date Time Temp Pulse Resp B/P Pulse Ox O2 Delivery O2 Flow Rate FiO2 02/19/17 16:00 97.3 64 18 98/61 98 02/19/17 11:56 97.9 73 18 99/60 95 02/19/17 09:20 97 Nasal Cannula 3.00 02/19/17 08:22 Nasal Cannula 3.00 Humidified 02/19/17 08:00 97.2 73 18 114/45 97 02/19/17 04:20 97 Nasal Cannula 3.00 02/19/17 00:00 98.9 82 16 95/58 94 02/18/17 20:00 97.7 105 17 90/59 95 02/18/17 18:39 97 Nasal Cannula 3.00 02/19/17 07:00 Intake Total 1080 ml Balance 1080 ml (Reji Paez) Review of Systems/Exam ROS Constitutional: Patient states he is tired. He denies any fever or chills. HEENT: Swelling and numbness to the right side of the head and neck. Neck: Swelling and numbness to the right side of the head and neck. Respiratory: He has some shortness of breath, but denies any productive cough. Cardiac: He denies any chest pain, palpitations or irregular heart beat. GI: He denies any abdominal pain, nausea, vomiting or bowel incontinence. : He denies any bladder incontinence. Back: He denies any back pain. Extremities: He denies any arm or leg pain or weakness. Exam General: Well developed, well nourished male who appears his stated age, NAD. HEENT: Right parietoccipital scalp swelling, warmth & erythema TTP w/decreased sensation extending to the right posterolateral neck. Neck: Midline & right posterolateral neck swelling, warmth & erythema TTP w/ decreased sensation extending to the right parietoccipital scalp. No JVD, trachea midline. Respiratory: CTAB w/o W/R/R but decreased, equal excursion, non-laboured, on NC. CV: S1S2 w/RRR w/o M/G/R. GI: Abdomen soft, nontender, obese, positive bowel sounds. Extremities: BLEVINS, no evident deformity, discolouration or clubbing. Back: Thoracolumbar spine NTTP, no step-off or deformity, no evident wounds. Neuro: AAOx3. Speech clear & appropriate. Follows commands. Sensation grossly intact to light touch to the extremities. Motor strength 5/5 to LUE & BLE and 4/ 5 to RUE. (Reji Paez) Medications Current Medications Current Medications Medications (Trade) Dose Ordered Sig/Umu Route Start Time Stop Time Status Last Admin (NS Flush) 2 ml UNSCH PRN IV FLUSH 02/18/17 02:30 (NS Flush) 2 ml BID IV FLUSH 02/18/17 09:00 02/19/17 08:27 (Tylenol) 650 mg Q4H PRN PO 02/18/17 02:30 02/18/17 08:36 (Zofran Inj) 4 mg Q6H PRN IVP 02/18/17 02:30 Naloxone HCl 0.4 mg 0.4 mg UNSCH PRN IV 02/18/17 02:30 Clindamycin Phosphate 600 mg/ Sodium Chloride 104 ml @ 208 mls/hr Q8H IV 02/18/17 10:00 02/19/17 10:54 (Vancomycin Consult Pharmacy) 0 ml @ 0 mls/hr UNSCH OTHER 02/18/17 02:30 (D50w (Vial) Inj) 25 ml UNSCH PRN IV PUSH 02/18/17 02:30 (Glucagon Inj) 1 mg UNSCH PRN OTHER 02/18/17 02:30 (Xanax) 0.5 mg Q8H PRN PO 02/18/17 02:30 02/19/17 16:16 (Lioresal) 10 mg TID PRN PO 02/18/17 02:30 02/18/17 15:17 (Symbicort 160-4.5 Inh) 2 puff Q12HR INH 02/18/17 09:00 02/19/17 08:28 (Lanoxin) 0.125 mg DAILY PO 02/18/17 09:00 02/19/17 08:25 Hydrochlorothiazide 25 mg 25 mg DAILY PO 02/18/17 09:00 Vancomycin HCl 1000 mg/Sodium Chloride 250 ml @ 250 mls/hr Q12H IV 02/18/17 11:00 02/19/17 12:18 (NS 1000 ml Inj) 1,000 ml @ 42 mls/hr [id number] IV 02/18/17 15:30 02/19/17 11:11 (Dilaudid Pf Inj) 0.5 mg Q4H PRN IV PUSH 02/18/17 16:00 (Percocet 10-325 Mg) 1 tab Q4H PRN PO 02/18/17 20:00 02/19/17 13:22 (Mucinex Er) 600 mg BID PO 02/18/17 21:00 02/19/17 08:25 (Fioricet 325-50-40) 1 tab Q8H PRN PO 02/19/17 09:15 02/19/17 10:51 (Reji Paez) Medical Decision Making MDM Remarks 1. 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 Right hemilaminectomy defect at the C1 level w/the right C1 arch and plates loose within the fluid collection Patient remains neurologically intact. (Reji Paez) Plan Plan Remarks Continue empiric IV antibiotics. Medical clearance for surgical intervention. Hold Coumadin. Pain management. Primary mgmt per Attending. (Reji Paez) Attending Statement I have personally seen and examined the patient on the date of this note. Pertinent documentation and study results have been reviewed by the undersigned. I have personally developed the treatment plan and performed medical decision making. Agree with findings, exam, and treatment plan as noted above. Patient awake and alert Mild scanning type dysarthria The right occipital-neck incision is relatively well-healed, no drainage but quite tense with mild erythema. No nuchal rigidity Discussed at length with the patient today. We will try to locate his preoperative imaging study to try to determine the extent of the dural involvement. Also obtain operative report. Uncertain whether he has a dural graft in place or a primary dural closure. We will discuss further with the patient once above information is obtained ( Jose De Jesus Perez MD) Reji Paez February 19, 2017 17:34 Jose De Jesus Perez MD February 19, 2017 22:00
[2017-02-20] VITALS (9 sets, daily range): BP systolic 97–121; BP diastolic 63–70; PULSE 66–83; RESP 16–18; TEMP 96.8–98.6; O2SAT 94–100
[2017-02-20] MEDS: CLINDAMYCIN INJ 600 MG in SODIUM CHLORIDE 0.9% INJ 100 ML IV SCH ×3 (00:22→17:48)
[2017-02-20] MEDS: oxyCODONE/ACETAMINOPHEN 10 MG/325 MG TAB PO PRN ×6 (01:30→21:57)
[2017-02-20] MEDS: ACETAMIN 325 MG/BUTALBITAL 50 MG/CAFFEINE 40 MG TAB PO PRN ×3 (03:13→20:07)
[2017-02-20] MEDS: RESP: ALBUTEROL 2.5 MG/IPRATROPIUM 0.5 MG NEB (SCH) NEB ×4 (04:00→21:41)
[2017-02-20] MEDS: INSULIN ASPART SUPPLEMENTAL SCALE SQ SCH ×4 (06:26→20:06)
[2017-02-20] MEDS: BUDESONIDE-FORMOTEROL 160/4.5 MCG INHALER INH SCH ×2 (08:37→20:08)
[2017-02-20] MEDS: HYDROCHLOROTHIAZIDE 25 MG TAB PO SCH (08:37)
[2017-02-20] MEDS: guaiFENesin E.R. 600 MG TAB PO SCH ×2 (08:37→20:07)
[2017-02-20] MEDS: SODIUM CHLORIDE 0.9% FLUSH 10 ML FLUSH IV FLUSH SCH ×2 (08:37→20:07)
[2017-02-20] MEDS: DIGOXIN 0.125 MG TAB PO SCH (08:37)
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
[2017-02-20] MEDS: VANCOMYCIN 1,000 MG/NS 250 ML IV SCH ×2 (11:39)
--- NOTE | 2017-02-20 18:09 | HHI.NSPN ---
(Reji Paez) Note Status Status: Progress Note (Reji Paez) Interval History Interval History 02/18: 61-year-old gentleman with history of a right retromastoid approach for resection of meningioma done approximately [address] Cartagena at [facility]. Patient states that a few days after surgery he developed swelling around the surgical area. The swelling and pain has gotten progressively worse within the last few days reason why he came to the emergency department last night for evaluation. MRI of the cervical spine from 02/17/2017 showed evidence of the right occipital craniotomy and a deflated collection in the craniotomy defect and overlying the soft tissues and the right upper cervical region. The fluid collection is approximately 476 cm in size and does not clearly communicate with the CSF spaces. The CT of the cervical spine also shows right hemilaminectomy defect at the C1 level and the right C1 arch and plates are loose within the fluid collection. Patient denies any neurological deficits. Started on empiric vancomycin and clindamycin. 02/19: Patient is awake & alert when seen this afternoon. He complains of neck pain, headache and numbness to the swelling on the right side of his head & neck. The patient does live in the [place] area but also stated "I don't want to deal with that samuel no more and he don't want to see me either." 02/20: Patient is doing well. He still complains of neck pain, headache with numbness above the swelling to the right side of the head & neck. (Reji Paez) Labs, Micro, & Vital Signs Constitutional Vital Signs Date Time Temp Pulse Resp B/P Pulse Ox O2 Delivery O2 Flow Rate FiO2 02/20/17 16:00 96.9 67 18 100/63 94 02/20/17 15:54 98 Nasal Cannula 3.00 02/20/17 12:00 98.6 83 18 110/70 95 02/20/17 09:31 97 Nasal Cannula 3.00 02/20/17 08:32 Nasal Cannula 3.00 Humidified 02/20/17 07:42 97.0 70 18 102/67 94 02/20/17 04:52 96 Nasal Cannula 3.00 02/20/17 04:00 98.4 66 16 121/70 100 02/20/17 00:00 97.6 78 17 97/69 98 02/19/17 21:21 95 Nasal Cannula 3.00 02/19/17 21:20 93 Nasal Cannula 3.00 Humidified 02/19/17 19:00 97.4 122 20 122/75 93 02/20/17 07:00 Intake Total 2584 ml Output Total 700 ml Balance 1884 ml (Reji Paez) Review of Systems/Exam ROS Constitutional: He denies any fever or chills. HEENT: Swelling and numbness to the right side of the head and neck. Neck: Swelling and numbness to the right side of the head and neck. Respiratory: He denies shortness of breath or productive cough. Cardiac: He denies any chest pain, palpitations or irregular heart beat. GI: He denies any abdominal pain, nausea, vomiting or bowel incontinence. : He denies any bladder incontinence. Back: He denies any back pain. Extremities: He denies any arm or leg pain or weakness. Exam General: Well developed, well nourished male who appears his stated age, NAD. HEENT: Right parietoccipital scalp swelling, warmth & erythema TTP w/decreased sensation to the scalp superior to the swelling. His head & neck are rotated down toward the left shoulder. Neck: Midline & right posterolateral neck swelling, warmth & erythema TTP. His head & neck are rotated down toward the left shoulder. No JVD, trachea midline. Respiratory: Decreased with slight expiratory wheeze bilaterally, equal excursion, non-laboured, on NC. CV: S1S2 w/RRR w/o M/G/R. GI: Abdomen soft, nontender, obese, positive bowel sounds. Extremities: BLEVINS, no evident deformity, discolouration or clubbing. Neuro: AAOx3. Speech clear & appropriate. Follows commands. Sensation grossly intact to light touch to the extremities. Motor strength 5/5 to LUE & BLE and 4/ 5 to RUE. (Reji Paez) Medications Current Medications Current Medications Medications (Trade) Dose Ordered Sig/Umu Route Start Time Stop Time Status Last Admin (NS Flush) 2 ml UNSCH PRN IV FLUSH 02/18/17 02:30 (NS Flush) 2 ml BID IV FLUSH 02/18/17 09:00 02/20/17 08:37 (Tylenol) 650 mg Q4H PRN PO 02/18/17 02:30 02/18/17 08:36 (Zofran Inj) 4 mg Q6H PRN IVP 02/18/17 02:30 Naloxone HCl 0.4 mg 0.4 mg UNSCH PRN IV 02/18/17 02:30 Clindamycin Phosphate 600 mg/ Sodium Chloride 104 ml @ 208 mls/hr Q8H IV 02/18/17 10:00 02/20/17 17:48 (Vancomycin Consult Pharmacy) 0 ml @ 0 mls/hr UNSCH OTHER 02/18/17 02:30 (D50w (Vial) Inj) 25 ml UNSCH PRN IV PUSH 02/18/17 02:30 (Glucagon Inj) 1 mg UNSCH PRN OTHER 02/18/17 02:30 (Xanax) 0.5 mg Q8H PRN PO 02/18/17 02:30 02/19/17 16:16 (Lioresal) 10 mg TID PRN PO 02/18/17 02:30 02/18/17 15:17 (Symbicort 160-4.5 Inh) 2 puff Q12HR INH 02/18/17 09:00 02/20/17 08:37 (Lanoxin) 0.125 mg DAILY PO 02/18/17 09:00 02/20/17 08:37 Hydrochlorothiazide 25 mg 25 mg DAILY PO 02/18/17 09:00 (NS 1000 ml Inj) 1,000 ml @ 42 mls/hr [id number] IV 02/18/17 15:30 02/19/17 21:27 (Dilaudid Pf Inj) 0.5 mg Q4H PRN IV PUSH 02/18/17 16:00 (Percocet 10-325 Mg) 1 tab Q4H PRN PO 02/18/17 20:00 02/20/17 17:48 (Mucinex Er) 600 mg BID PO 02/18/17 21:00 02/20/17 08:37 Acetaminophen/ Butalbital/ Caffeine 1 tab 1 tab Q8H PRN PO 02/19/17 09:15 02/20/17 11:36 (Vancomycin Inj/ NS 250 ml Inj) 262.5 ml @ 250 mls/hr Q12H IV 02/20/17 23:00 Miscellaneous Information SPECIFIC LAB TO BE DRAWN:VANCOMYCIN TROUGH DATE TO... ONCE ONCE .XX 02/22/17 10:45 02/22/17 10:46 (Reji Paez) Medical Decision Making MDM Remarks 1. 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 Right hemilaminectomy defect at the C1 level w/the right C1 arch and plates loose within the fluid collection Patient remains neurologically intact. (Reji Paez) Plan Plan Remarks Continue empiric IV antibiotics. Medical clearance for surgical intervention. Hold Coumadin. Pain management. Primary mgmt per Attending. The patient's is to bring in a copy of the MRI that Dr Mendez did. ( Reji Paez) Attending Statement I have personally seen and examined the patient on the date of this note. Pertinent documentation and study results have been reviewed by the undersigned. I have personally developed the treatment plan and performed medical decision making. Agree with findings, exam, and treatment plan as noted above. Discussed with patient His will bring the MRI disc to the hospital tomorrow. Need to know the extent of the initial lesion and the potential amount of dura remaining for further repair. (Jose De Jesus Perez MD) Reji Paez February 20, 2017 18:09 Jose De Jesus Perez MD February 20, 2017 18:39
[2017-02-20] MEDS: VANCOMYCIN INJ 1,250 MG in SODIUM CHLOR 0.9% 250 ML INJ 250 ML IV SCH (21:58)
[2017-02-21] VITALS (8 sets, daily range): BP systolic 106–125; BP diastolic 63–73; PULSE 68–77; RESP 17–18; TEMP 95.8–99.4; O2SAT 95–97
[2017-02-21] MEDS: CLINDAMYCIN INJ 600 MG in SODIUM CHLORIDE 0.9% INJ 100 ML IV SCH ×3 (01:20→17:26)
[2017-02-21] MEDS: ALPRAZolam 0.5 MG TAB PO PRN (01:22)
[2017-02-21] MEDS: oxyCODONE/ACETAMINOPHEN 10 MG/325 MG TAB PO PRN ×5 (02:37→20:51)
[2017-02-21] MEDS: RESP: ALBUTEROL 2.5 MG/IPRATROPIUM 0.5 MG NEB (SCH) NEB ×4 (04:10→20:53)
[2017-02-21] MEDS: INSULIN ASPART SUPPLEMENTAL SCALE SQ SCH ×4 (05:55→20:51)
[2017-02-21] MEDS: ACETAMIN 325 MG/BUTALBITAL 50 MG/CAFFEINE 40 MG TAB PO PRN ×2 (05:56→16:37)
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
[2017-02-21] MEDS: SODIUM CHLORIDE 0.9% FLUSH 10 ML FLUSH IV FLUSH SCH ×2 (09:00→20:46)
[2017-02-21] MEDS: HYDROCHLOROTHIAZIDE 25 MG TAB PO SCH (09:32)
[2017-02-21] MEDS: DIGOXIN 0.125 MG TAB PO SCH (09:32)
[2017-02-21] MEDS: guaiFENesin E.R. 600 MG TAB PO SCH ×2 (09:32→20:45)
[2017-02-21] MEDS: BUDESONIDE-FORMOTEROL 160/4.5 MCG INHALER INH SCH ×2 (09:35→20:46)
[2017-02-21] MEDS: VANCOMYCIN INJ 1,250 MG in SODIUM CHLOR 0.9% 250 ML INJ 250 ML IV SCH ×2 (10:17→22:40)
--- NOTE | 2017-02-21 11:01 | HHI.NSPN ---
(Reji Paez) Note Status Status: Progress Note (Reji Paez) Interval History Interval History 02/18: 61-year-old gentleman with history of a right retromastoid approach for resection of meningioma done approximately [address] Cartagena at [facility]. Patient states that a few days after surgery he developed swelling around the surgical area. The swelling and pain has gotten progressively worse within the last few days reason why he came to the emergency department last night for evaluation. MRI of the cervical spine from 02/17/2017 showed evidence of the right occipital craniotomy and a deflated collection in the craniotomy defect and overlying the soft tissues and the right upper cervical region. The fluid collection is approximately 476 cm in size and does not clearly communicate with the CSF spaces. The CT of the cervical spine also shows right hemilaminectomy defect at the C1 level and the right C1 arch and plates are loose within the fluid collection. Patient denies any neurological deficits. Started on empiric vancomycin and clindamycin. 02/19: Patient is awake & alert when seen this afternoon. He complains of neck pain, headache and numbness to the swelling on the right side of his head & neck. The patient does live in the [place] area but also stated "I don't want to deal with that samuel no more and he don't want to see me either." 02/20: Patient is doing well. He still complains of neck pain, headache with numbness above the swelling to the right side of the head & neck. 02/21: Patient continues to do well. He continues to have pain to the neck & back of the head with some numbness. He is currently on contact precautions due to a positive MRSA PCR per Nursing. (Reji Paez) Labs, Micro, & Vital Signs Results Allergies Coded Allergies Type Severity Reaction Last Updated Verified Penicillin Allergy Unknown 02/17/17 Yes *MDRO Multi-Drug Resistant Organism Adverse Reaction Unknown 02/19/17 Yes ////175/2/175/3/ 06:00 18:00 06:00 18:00 06:00 18:00 Intake Total 480 ml 720 ml 1864 ml 720 ml 1008 ml 240 ml Output Total 700 ml 1200 ml 600 ml 1025 ml Balance 480 ml 720 ml 1164 ml -480 ml 408 ml -785 ml Intake Oral 480 ml 720 ml 960 ml 720 ml 240 ml 240 ml IV Total 904 ml 768 ml Output Urine Total 700 ml 1200 ml 600 ml 1025 ml # Voids 2 3 3 # Bowel Movements 0 0 0 0 0 Laboratory Tests Test 02/18/17 02/19/17 02/19/17 02/19/17 13:12 06:30 10:55 11:10 Potassium Level 3.3 MEQ/L 3.4 MEQ/L Phosphorus Level 2.3 MG/DL Magnesium Level 2.1 MG/DL White Blood Count 4.9 TH/MM3 Red Blood Count 4.36 MIL/MM3 Hemoglobin 11.1 GM/DL Hematocrit 34.2 % Mean Corpuscular Volume 78.5 FL Mean Corpuscular Hemoglobin 25.4 PG Mean Corpuscular Hemoglobin 32.4 % Concent Red Cell Distribution Width 15.9 % Platelet Count 151 TH/MM3 Mean Platelet Volume 7.9 FL Neutrophils (%) (Auto) 63.6 % Lymphocytes (%) (Auto) 24.2 % Monocytes (%) (Auto) 10.5 % Eosinophils (%) (Auto) 1.1 % Basophils (%) (Auto) 0.6 % Neutrophils # (Auto) 3.1 TH/MM3 Lymphocytes # (Auto) 1.2 TH/MM3 Monocytes # (Auto) 0.5 TH/MM3 Eosinophils # (Auto) 0.1 TH/MM3 Basophils # (Auto) 0.0 TH/MM3 CBC Comment DIFF FINAL Differential Comment Sodium Level 136 MEQ/L Chloride Level 100 MEQ/L Carbon Dioxide Level 27.3 MEQ/L Anion Gap 9 MEQ/L Blood Urea Nitrogen 6 MG/DL Creatinine 0.85 MG/DL Estimat Glomerular Filtration 91 ML/MIN Rate Random Glucose 139 MG/DL Calcium Level 9.0 MG/DL Vancomycin Level Trough 11.0 MCG/ML Nasal Screen MRSA (PCR) MRSA DETECTED Test 02/21/17 06:40 Creatinine 0.80 MG/DL Estimat Glomerular Filtration 98 ML/MIN Rate Constitutional Vital Signs Date Time Temp Pulse Resp B/P Pulse Ox O2 Delivery O2 Flow Rate FiO2 02/21/17 09:36 95 Nasal Cannula 3.00 02/21/17 08:00 97.2 68 18 106/66 97 02/21/17 04:00 97.7 68 17 111/68 96 02/21/17 00:00 99.4 74 17 111/66 97 02/20/17 20:06 97 Nasal Cannula 3.00 Humidified 02/20/17 20:00 96.8 67 17 116/70 97 02/20/17 16:00 96.9 67 18 100/63 94 02/20/17 15:54 98 Nasal Cannula 3.00 02/20/17 12:00 98.6 83 18 110/70 95 02/21/17 07:00 Intake Total 1968 ml Output Total 2825 ml Balance -857 ml (Reji Paez) Review of Systems/Exam ROS Constitutional: He denies any fever or chills. HEENT: Swelling and numbness to the right side of the head and neck. Neck: Swelling and numbness to the right side of the head and neck. Respiratory: He denies shortness of breath or productive cough. Cardiac: He denies any chest pain, palpitations or irregular heart beat. GI: He denies any abdominal pain, nausea, vomiting or bowel incontinence. : He denies any bladder incontinence. Back: He denies any back pain. Extremities: He denies any arm or leg pain or weakness. Exam General: Well developed, well nourished male who appears his stated age, NAD. HEENT: Right parietoccipital scalp swelling, warmth & erythema TTP w/decreased sensation to the scalp superior to the swelling. His head & neck are rotated down toward the left shoulder. Neck: Midline & right posterolateral neck swelling, warmth & erythema TTP. His head & neck are rotated down toward the left shoulder. No JVD, trachea midline. Respiratory: CTAB w/o W/R/R but decreased, equal excursion, non-laboured, on NC. CV: S1S2 w/RRR w/o M/G/R. GI: Abdomen soft, nontender, obese, positive bowel sounds. Extremities: BLEVINS, no evident deformity, discolouration or clubbing. Neuro: AAOx3. Speech clear & appropriate. Follows commands. Sensation grossly intact to light touch to the extremities. Motor strength 5/5 to LUE & BLE and 4/ 5 to RUE. (Reji Paez) Medications Current Medications Current Medications Medications (Trade) Dose Ordered Sig/Umu Route Start Time Stop Time Status Last Admin (NS Flush) 2 ml UNSCH PRN IV FLUSH 02/18/17 02:30 (NS Flush) 2 ml BID IV FLUSH 02/18/17 09:00 02/20/17 20:07 (Tylenol) 650 mg Q4H PRN PO 02/18/17 02:30 02/18/17 08:36 (Zofran Inj) 4 mg Q6H PRN IVP 02/18/17 02:30 Naloxone HCl 0.4 mg 0.4 mg UNSCH PRN IV 02/18/17 02:30 Clindamycin Phosphate 600 mg/ Sodium Chloride 104 ml @ 208 mls/hr Q8H IV 02/18/17 10:00 02/21/17 09:38 (Vancomycin Consult Pharmacy) 0 ml @ 0 mls/hr UNSCH OTHER 02/18/17 02:30 (D50w (Vial) Inj) 25 ml UNSCH PRN IV PUSH 02/18/17 02:30 (Glucagon Inj) 1 mg UNSCH PRN OTHER 02/18/17 02:30 (Xanax) 0.5 mg Q8H PRN PO 02/18/17 02:30 02/21/17 01:22 (Lioresal) 10 mg TID PRN PO 02/18/17 02:30 02/18/17 15:17 (Symbicort 160-4.5 Inh) 2 puff Q12HR INH 02/18/17 09:00 02/21/17 09:35 (Lanoxin) 0.125 mg DAILY PO 02/18/17 09:00 02/21/17 09:32 Hydrochlorothiazide 25 mg 25 mg DAILY PO 02/18/17 09:00 02/21/17 09:32 (NS 1000 ml Inj) 1,000 ml @ 42 mls/hr [id number] IV 02/18/17 15:30 02/19/17 21:27 (Dilaudid Pf Inj) 0.5 mg Q4H PRN IV PUSH 02/18/17 16:00 (Percocet 10-325 Mg) 1 tab Q4H PRN PO 02/18/17 20:00 02/21/17 06:47 (Mucinex Er) 600 mg BID PO 02/18/17 21:00 02/21/17 09:32 Acetaminophen/ Butalbital/ Caffeine 1 tab 1 tab Q8H PRN PO 02/19/17 09:15 02/21/17 05:56 (Vancomycin Inj/ NS 250 ml Inj) 262.5 ml @ 250 mls/hr Q12H IV 02/20/17 23:00 02/21/17 10:17 Miscellaneous Information SPECIFIC LAB TO BE DRAWN:VANCOMYCIN TROUGH DATE TO... ONCE ONCE .XX 02/22/17 10:45 02/22/17 10:46 (Reji Paez) Medical Decision Making MDM Remarks 1. 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 Right hemilaminectomy defect at the C1 level w/the right C1 arch and plates loose within the fluid collection Patient remains neurologically intact. Medicine feels patient is a low cardiac risk for any procedure (Reji Paez) Plan Plan Remarks Continue empiric IV antibiotics. Hold Coumadin. Pain management. Primary mgmt per Attending. This morning the patient's brought in a disk with the MRI that Dr Mendez did. (Reji Paez) Attending Statement Patient seen today by Reji HERMAN. He remains clinically stable. The patient's preoperative MRI of the cervical medullary junction region images reviewed by the undersigned today. 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 I am uncertain whether an attempt was made to close the dura, or whether a dural defect is present following the meningioma resection. If the dura has been resected along with the lesion, there may not be sufficient dural border to sew in a patch graft. He may require a ventriculoperitoneal shunt to decrease the tension on the operative site, however We will discuss further with the patient and his family. (Jose De Jesus Perez MD) Reji Paez February 21, 2017 11:01 Jose De Jesus Perez MD February 21, 2017 20:15 Reji Paez February 21, 2017 11:01 Jose De Jesus Perez MD February 21, 2017 20:15
[2017-02-21 11:29] LABS: BICARBONATE 29.6 MEQ/L (21.0-32.0); MAGNESIUM 1.9 MG/DL (1.5-2.5)
[2017-02-21] MEDS: MUPIROCIN 2% OINT 1 APPLIC/GM SYR EACH NARE SCH (20:46)
[2017-02-22] VITALS (11 sets, daily range): BP systolic 97–130; BP diastolic 61–72; PULSE 71–79; RESP 18; TEMP 95.1–98.6; O2SAT 95–99
[2017-02-22] MEDS: oxyCODONE/ACETAMINOPHEN 10 MG/325 MG TAB PO PRN ×6 (01:18→22:14)
[2017-02-22] MEDS: CLINDAMYCIN INJ 600 MG in SODIUM CHLORIDE 0.9% INJ 100 ML IV SCH ×3 (01:18→18:00)
[2017-02-22] MEDS: RESP: ALBUTEROL 2.5 MG/IPRATROPIUM 0.5 MG NEB (PRN) NEB ×3 (01:22→22:26)
[2017-02-22] MEDS: RESP: ALBUTEROL 2.5 MG/IPRATROPIUM 0.5 MG NEB (SCH) NEB ×3 (03:47→16:03)
[2017-02-22] MEDS: INSULIN ASPART SUPPLEMENTAL SCALE SQ SCH ×3 (06:27→19:44)
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
[2017-02-22] MEDS: BUDESONIDE-FORMOTEROL 160/4.5 MCG INHALER INH SCH ×2 (09:00→19:41)
[2017-02-22] MEDS: SODIUM CHLORIDE 0.9% FLUSH 10 ML FLUSH IV FLUSH SCH ×2 (09:00→19:41)
[2017-02-22] MEDS: HYDROCHLOROTHIAZIDE 25 MG TAB PO SCH (09:41)
[2017-02-22] MEDS: DIGOXIN 0.125 MG TAB PO SCH (09:41)
[2017-02-22] MEDS: MUPIROCIN 2% OINT 1 APPLIC/GM SYR EACH NARE SCH ×2 (09:42→19:41)
[2017-02-22] MEDS: guaiFENesin E.R. 600 MG TAB PO SCH ×2 (09:42→19:41)
[2017-02-22] MEDS: SODIUM CHLOR 0.9% 1000 ML INJ 1,000 ML IV SCH (10:37)
[2017-02-22] MEDS ORDERED: PHARMACY ORDERED LAB ONE (10:45)
--- NOTE | 2017-02-22 10:51 | HHI.NSPN ---
(Reji Paez) Note Status Status: Progress Note (Reji Paez) Interval History Interval History 02/18: 61-year-old gentleman with history of a right retromastoid approach for resection of meningioma done approximately [address] Cartagena at [facility]. Patient states that a few days after surgery he developed swelling around the surgical area. The swelling and pain has gotten progressively worse within the last few days reason why he came to the emergency department last night for evaluation. MRI of the cervical spine from 02/17/2017 showed evidence of the right occipital craniotomy and a deflated collection in the craniotomy defect and overlying the soft tissues and the right upper cervical region. The fluid collection is approximately 476 cm in size and does not clearly communicate with the CSF spaces. The CT of the cervical spine also shows right hemilaminectomy defect at the C1 level and the right C1 arch and plates are loose within the fluid collection. Patient denies any neurological deficits. Started on empiric vancomycin and clindamycin. 02/19: Patient is awake & alert when seen this afternoon. He complains of neck pain, headache and numbness to the swelling on the right side of his head & neck. The patient does live in the [place] area but also stated "I don't want to deal with that samuel no more and he don't want to see me either." 02/20: Patient is doing well. He still complains of neck pain, headache with numbness above the swelling to the right side of the head & neck. 02/21: Patient continues to do well. He continues to have pain to the neck & back of the head with some numbness. He is currently on contact precautions due to a positive MRSA PCR per Nursing. 02/22: This morning the patient states he is doing well. He does have a headache that started last night. He continues to be on contact isolation. (Reji Paez) Labs, Micro, & Vital Signs Constitutional Vital Signs Date Time Temp Pulse Resp B/P Pulse Ox O2 Delivery O2 Flow Rate FiO2 02/22/17 10:41 Nasal Cannula 3.00 Humidified 02/22/17 08:13 96 Nasal Cannula 3.00 02/22/17 07:50 97.4 79 18 114/67 97 02/22/17 03:56 98.1 77 18 116/70 95 02/22/17 03:49 99 Nasal Cannula 3.00 02/22/17 01:26 98 Nasal Cannula 3.00 02/22/17 00:09 96.7 74 18 115/61 96 02/21/17 20:54 96 Nasal Cannula 3.00 02/21/17 20:38 96.3 71 18 110/68 96 02/21/17 16:00 97.7 68 18 116/63 97 02/21/17 12:44 20 02/21/17 12:00 95.8 77 18 125/73 97 02/21/17 11:56 97 Nasal Cannula 3.00 Humidified 02/22/17 07:00 Intake Total 1440 ml Output Total 1050 ml Balance 390 ml (Reji Paez) Review of Systems/Exam ROS Constitutional: He denies any fever or chills. HEENT: Swelling and numbness to the right side of the head and neck. Neck: Swelling and numbness to the right side of the head and neck. Respiratory: He denies shortness of breath or productive cough. Cardiac: He denies any chest pain, palpitations or irregular heart beat. GI: He denies any abdominal pain, nausea, vomiting or bowel incontinence. : He denies any bladder incontinence. Back: He denies any back pain. Extremities: He denies any arm or leg pain or weakness. Neuro: He has a headache that started last night. The only numbness he has is to the upper scalp at the top of the swelling. He denies any numbness, tingling or weakness to the extremities. Exam General: Well developed, well nourished male who appears his stated age, NAD. HEENT: Right parietoccipital scalp swelling, warmth & erythema TTP w/decreased sensation to the scalp superior to the swelling. His head & neck are rotated down toward the left shoulder. Neck: Midline & right posterolateral neck swelling, warmth & erythema TTP. His head & neck are rotated down toward the left shoulder. No JVD, trachea midline. Respiratory: CTAB w/o W/R/R but decreased, equal excursion, non-laboured, on NC. CV: S1S2 w/RRR w/o M/G/R, radial & pedal pulses 2+ bilaterally, cap refill < 2 sec. GI: Abdomen soft, nontender, obese, positive bowel sounds. Extremities: BLEVINS, no evident deformity, discolouration or clubbing. Neuro: AAOx3. Speech clear & appropriate. Follows commands. Sensation grossly intact to light touch to the extremities. Motor strength 5/5 to LUE & BLE and 4+ /5 to RUE. (Reji Paez) Medications Current Medications Current Medications Medications (Trade) Dose Ordered Sig/Umu Route Start Time Stop Time Status Last Admin (NS Flush) 2 ml UNSCH PRN IV FLUSH 02/18/17 02:30 (NS Flush) 2 ml BID IV FLUSH 02/18/17 09:00 02/22/17 09:00 (Tylenol) 650 mg Q4H PRN PO 02/18/17 02:30 02/18/17 08:36 (Zofran Inj) 4 mg Q6H PRN IVP 02/18/17 02:30 Naloxone HCl 0.4 mg 0.4 mg UNSCH PRN IV 02/18/17 02:30 Clindamycin Phosphate 600 mg/ Sodium Chloride 104 ml @ 208 mls/hr Q8H IV 02/18/17 10:00 02/22/17 09:40 (Vancomycin Consult Pharmacy) 0 ml @ 0 mls/hr UNSCH OTHER 02/18/17 02:30 (D50w (Vial) Inj) 25 ml UNSCH PRN IV PUSH 02/18/17 02:30 (Glucagon Inj) 1 mg UNSCH PRN OTHER 02/18/17 02:30 (Xanax) 0.5 mg Q8H PRN PO 02/18/17 02:30 02/21/17 01:22 (Lioresal) 10 mg TID PRN PO 02/18/17 02:30 02/18/17 15:17 (Symbicort 160-4.5 Inh) 2 puff Q12HR INH 02/18/17 09:00 02/22/17 09:00 (Lanoxin) 0.125 mg DAILY PO 02/18/17 09:00 02/22/17 09:41 Hydrochlorothiazide 25 mg 25 mg DAILY PO 02/18/17 09:00 02/22/17 09:41 (NS 1000 ml Inj) 1,000 ml @ 42 mls/hr [id number] IV 02/18/17 15:30 02/19/17 21:27 (Dilaudid Pf Inj) 0.5 mg Q4H PRN IV PUSH 02/18/17 16:00 (Percocet 10-325 Mg) 1 tab Q4H PRN PO 02/18/17 20:00 02/22/17 09:41 (Mucinex Er) 600 mg BID PO 02/18/17 21:00 02/22/17 09:42 Acetaminophen/ Butalbital/ Caffeine 1 tab 1 tab Q8H PRN PO 02/19/17 09:15 02/21/17 16:37 (Vancomycin Inj/ NS 250 ml Inj) 262.5 ml @ 250 mls/hr Q12H IV 02/20/17 23:00 02/21/17 22:40 Miscellaneous Information SPECIFIC LAB TO BE DRAWN:VANCOMYCIN TROUGH DATE TO... ONCE ONCE .XX 02/22/17 10:45 02/22/17 10:46 (Bactroban Nasal 2% Oint) 1 applic BID EACH NARE 02/21/17 21:00 02/22/17 09:42 (Reji Paez) Medical Decision Making MDM Remarks 1. 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 Right hemilaminectomy defect at the C1 level w/the right C1 arch and plates loose within the fluid collection Patient remains neurologically intact. Medicine feels patient is a low cardiac risk for any procedure (Reji Paez) Plan Plan Remarks Continue empiric IV antibiotics. Hold Coumadin. Pain management. Primary mgmt per Attending. (Reji Paez) Attending Statement I have personally seen and examined the patient on the date of this note. Pertinent documentation and study results have been reviewed by the undersigned. I have personally developed the treatment plan and performed medical decision making. Agree with findings, exam, and treatment plan as noted above. Patient was seen by the undersigned today. I spent approximately 30 minutes discussing the present findings and treatment options with he and his . I have reviewed the previous preoperative MRI of the cervical medullary region. The patient had a tumor which extended from near the midline cervical medullary junction to the lateral posterior fossa and upper spinal canal, reaching close to the right sigmoid sinus. I advised the patient and his that I very reluctant to reopen the incision , not knowing whether there is any dura left at the lateral margins of the excision with which to repair the CSF fistula. It is also not known whether or not a patch graft was sewn back or whether there is a primary closure of the dura. Furthermore the skin overlying the fluid collection is rather thin and moderately erythematous. Although there is not an obvious infection this region , the skin integrity appears compromised, and along with his history of diabetes , he is a increased risk for wound infection and breakdown with further surgery to the area. An option might be to place a ventriculoperitoneal shunt. His states that the patient apparently was already seen in the emergency room at [facility] within a couple of weeks after the initial surgery, and was transferred back to [place] for evaluation. She states that there was some leakage from the wound at that side, and the fluid was aspirated and apparently sent for culture. Patient was discharged the next day. We do not have the culture results. We will request records from [facility] to review in this regard. He does appear stable at this time and does have a follow-up appointment with his neurosurgeon in [place], and given the uncertainty regarding the details of his operative procedure, it would be best if he returned to his operating neurosurgeon for further recommendations. (Jose De Jesus Perez MD) Reji Paez February 22, 2017 10:51 Jose De Jesus Perez MD February 22, 2017 19:38
[2017-02-22] MEDS: VANCOMYCIN INJ 1,250 MG in SODIUM CHLOR 0.9% 250 ML INJ 250 ML IV SCH (11:00)
[2017-02-22] MEDS: HEPARIN SODIUM - SQ 10,000 UNITS/ML VIAL SQ SCH ×2 (14:10→22:15)
[2017-02-22] MEDS ORDERED: VANCOMYCIN 1,000 MG/NS 250 ML IV SCH ×2 (16:00)
[2017-02-22] MEDS: VANCOMYCIN 1,000 MG/NS 250 ML IV SCH ×2 (19:39)
[2017-02-23] VITALS (7 sets, daily range): BP systolic 91–123; BP diastolic 55–83; PULSE 72–84; RESP 18–19; TEMP 97.2–98.7; O2SAT 93–99
[2017-02-23] MEDS: CLINDAMYCIN INJ 600 MG in SODIUM CHLORIDE 0.9% INJ 100 ML IV SCH ×3 (02:26→15:50)
[2017-02-23] MEDS: oxyCODONE/ACETAMINOPHEN 10 MG/325 MG TAB PO PRN ×5 (03:46→20:10)
[2017-02-23] MEDS: INSULIN ASPART SUPPLEMENTAL SCALE SQ SCH ×4 (06:18→20:26)
[2017-02-23] MEDS: HEPARIN SODIUM - SQ 10,000 UNITS/ML VIAL SQ SCH ×3 (06:18→22:34)
[2017-02-23] MEDS: RESP: ALBUTEROL 2.5 MG/IPRATROPIUM 0.5 MG NEB (PRN) NEB (07:32)
[2017-02-23] MEDS: DIGOXIN 0.125 MG TAB PO SCH (07:45)
[2017-02-23] MEDS: guaiFENesin E.R. 600 MG TAB PO SCH ×2 (07:45→20:12)
[2017-02-23] MEDS: MUPIROCIN 2% OINT 1 APPLIC/GM SYR EACH NARE SCH ×2 (07:45→20:12)
[2017-02-23] MEDS: VANCOMYCIN 1,000 MG/NS 250 ML IV SCH ×4 (07:46→20:11)
[2017-02-23] MEDS: SODIUM CHLORIDE 0.9% FLUSH 10 ML FLUSH IV FLUSH SCH ×2 (07:47→20:12)
[2017-02-23] MEDS: HYDROCHLOROTHIAZIDE 25 MG TAB PO SCH (07:47)
[2017-02-23] MEDS: BUDESONIDE-FORMOTEROL 160/4.5 MCG INHALER INH SCH ×2 (08:00→20:12)
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
[2017-02-23 10:39] LABS: DIGOXIN 0.7 NG/ML (0.8-2.0)
[2017-02-23] MEDS: RESP: ALBUTEROL 2.5 MG/IPRATROPIUM 0.5 MG NEB (SCH) NEB ×3 (12:05→20:48)
[2017-02-23] MEDS: SODIUM CHLOR 0.9% 1000 ML INJ 1,000 ML IV SCH (12:05)
--- NOTE | 2017-02-23 22:35 | HHI.NSPN ---
Exam Results Vital Signs Date Time Temp Pulse Resp B/P Pulse Ox O2 Delivery O2 Flow Rate FiO2 02/23/17 20:52 99 Nasal Cannula 3.00 02/23/17 20:10 97.2 72 18 92/65 Intake and Output 02/22/17 02/22/17 02/23/17 08:00 16:00 00:00 Intake Total 360 ml 700 ml 720 ml Output Total 450 ml 800 ml 200 ml Balance -90 ml -100 ml 520 ml Physical Examination General: Well developed, well nourished male who appears his stated age, NAD. HEENT: Right occipital-upper neck fluid collection seems quite a bit softer today. No drainage. Moderate persistent erythema. Neck: Midline & right posterolateral neck swelling, warmth & erythema TTP. His head & neck are rotated down toward the left shoulder. No JVD, trachea midline. Respiratory: CTAB w/o W/R/R but decreased, equal excursion, non-laboured, on NC. CV: S1S2 w/RRR w/o M/G/R, radial & pedal pulses 2+ bilaterally, cap refill < 2 sec. GI: Abdomen soft, nontender, obese, positive bowel sounds. Extremities: BLEVINS, no evident deformity, discolouration or clubbing. Neuro: AAOx3. Speech clear & appropriate. Follows commands. Sensation grossly intact to light touch to the extremities. Motor strength 5/5 to LUE & BLE and 4+ /5 to RUE. Lab, Micro, Other Results Laboratory Tests Test 02/23/17 09:40 Creatinine 0.84 MG/DL Estimat Glomerular Filtration 93 ML/MIN Rate Digoxin Level 0.7 NG/ML Medical Decision Making Impression and Plan Impression: 1. Prominent right occipital soft tissue fluid collection. Appears less tense today. Plan: Discussed with patient. Await records from [facility] I did advise patient again that it would be best to continue with his follow-up appointment with his operating surgeon in [place] who is more familiar with the extent of the procedure including dural resection and whether or not a patch graft is already in place or whether or not there is enough dural border to perform a full closure of the defect. He may require a ventriculoperitoneal shunt, although there is no evidence of hydrocephalus on his MRI and CT scan, and the fluid collection seems a little softer today. No definite evidence of meningitis or other infection at this point. Jose De Jesus Perez MD February 23, 2017 22:35
[2017-02-24] VITALS (9 sets, daily range): BP systolic 96–153; BP diastolic 58–86; PULSE 70–97; RESP 17–22; TEMP 95.5–99.8; O2SAT 92–99
[2017-02-24] MEDS: RESP: ALBUTEROL 2.5 MG/IPRATROPIUM 0.5 MG NEB (SCH) NEB ×6 (00:04→22:00)
[2017-02-24] MEDS: oxyCODONE/ACETAMINOPHEN 10 MG/325 MG TAB PO PRN ×6 (00:19→21:50)
[2017-02-24] MEDS: ALPRAZolam 0.5 MG TAB PO PRN ×2 (01:48→16:23)
[2017-02-24] MEDS: CLINDAMYCIN INJ 600 MG in SODIUM CHLORIDE 0.9% INJ 100 ML IV SCH ×3 (01:48→18:52)
[2017-02-24] MEDS: HEPARIN SODIUM - SQ 10,000 UNITS/ML VIAL SQ SCH ×3 (05:07→21:51)
[2017-02-24] MEDS: INSULIN ASPART SUPPLEMENTAL SCALE SQ SCH ×4 (07:00→19:40)
[2017-02-24] MEDS: BUDESONIDE-FORMOTEROL 160/4.5 MCG INHALER INH SCH ×2 (09:00→19:34)
[2017-02-24] MEDS: DIGOXIN 0.125 MG TAB PO SCH (09:43)
[2017-02-24] MEDS: guaiFENesin E.R. 600 MG TAB PO SCH ×2 (09:43→19:34)
[2017-02-24] MEDS: MUPIROCIN 2% OINT 1 APPLIC/GM SYR EACH NARE SCH ×2 (09:43→19:34)
[2017-02-24] MEDS: HYDROCHLOROTHIAZIDE 25 MG TAB PO SCH (09:43)
[2017-02-24] MEDS: VANCOMYCIN 1,000 MG/NS 250 ML IV SCH ×4 (09:43→19:34)
[2017-02-24] MEDS: SODIUM CHLORIDE 0.9% FLUSH 10 ML FLUSH IV FLUSH SCH ×2 (09:44→19:34)
--- NOTE | 2017-02-24 11:48 | HHI.NSPN ---
(Diana Joseph) Note Status Status: Progress Note (Diana Joseph) Interval History Interval History 61-year-old gentleman with history of a right retromastoid approach for resection of meningioma done approximately [address] Cartagena at [facility]. Patient states that a few days after surgery he developed swelling around the surgical area. The swelling and pain has gotten progressively worse within the last few days reason why he came to the emergency department last night for evaluation. MRI of the cervical spine from 02/17/2017 showed evidence of the right occipital craniotomy and a deflated collection in the craniotomy defect and overlying the soft tissues and the right upper cervical region. The fluid collection is approximately 476 cm in size and does not clearly communicate with the CSF spaces. The CT of the cervical spine also shows right hemilaminectomy defect at the C1 level and the right C1 arch and plates are loose within the fluid collection. Patient denies any neurological deficits. Started on empiric vancomycin and clindamycin. 02/19: Patient is awake & alert when seen this afternoon. He complains of neck pain, headache and numbness to the swelling on the right side of his head & neck. The patient does live in the [place] area but also stated "I don't want to deal with that samuel no more and he don't want to see me either." 02/20: Patient is doing well. He still complains of neck pain, headache with numbness above the swelling to the right side of the head & neck. 02/21: Patient continues to do well. He continues to have pain to the neck & back of the head with some numbness. He is currently on contact precautions due to a positive MRSA PCR per Nursing. 02/22: This morning the patient states he is doing well. He does have a headache that started last night. He continues to be on contact isolation. 02/24: Neuro stable overnight, continue to have pain and tenderness to the swollen site (Diana Joseph) Labs, Micro, & Vital Signs Results Date Time Temp Pulse Resp B/P Pulse Ox O2 Delivery O2 Flow Rate FiO2 02/24/17 08:00 95.5 70 18 107/68 99 02/24/17 08:00 99 Nasal Cannula 3.00 Humidified 02/24/17 07:31 98 Nasal Cannula 3.00 02/24/17 00:36 99.8 84 18 103/64 92 02/23/17 20:52 99 Nasal Cannula 3.00 02/23/17 20:10 97.2 72 18 92/65 94 02/23/17 16:00 97.3 76 18 91/63 94 02/23/17 13:12 16 02/23/17 12:00 98.6 84 18 120/76 93 02/24/17 07:00 Intake Total 1200 ml Output Total 975 ml Balance 225 ml Constitutional Vital Signs Date Time Temp Pulse Resp B/P Pulse Ox O2 Delivery O2 Flow Rate FiO2 02/24/17 08:00 95.5 70 18 107/68 99 02/24/17 08:00 99 Nasal Cannula 3.00 Humidified 02/24/17 07:31 98 Nasal Cannula 3.00 02/24/17 00:36 99.8 84 18 103/64 92 02/23/17 20:52 99 Nasal Cannula 3.00 02/23/17 20:10 97.2 72 18 92/65 94 02/23/17 16:00 97.3 76 18 91/63 94 02/23/17 13:12 16 02/23/17 12:00 98.6 84 18 120/76 93 02/24/17 07:00 Intake Total 1200 ml Output Total 975 ml Balance 225 ml (Diana Joseph) Review of Systems/Exam Exam Alert, oriented x 3. Speech is fluent and follow commands well. Right occipital soft tissue swelling, no drainage. Motor: Motor strength 5/5 to LUE & BLE and 4+/5 to RUE. Sensation grossly intact to light touch to the extremities. (Diana Joseph) Medications Current Medications Current Medications Medications (Trade) Dose Ordered Sig/Umu Route PRN Reason Start Time Stop Time Status Last Admin Dose Admin Sodium Chloride (NS Flush) 2 ml UNSCH PRN IV FLUSH FLUSH AFTER USING IV ACCESS 02/18/17 02:30 Sodium Chloride (NS Flush) 2 ml BID IV FLUSH 02/18/17 09:00 02/24/17 09:44 Acetaminophen (Tylenol) 650 mg Q4H PRN PO TEMP > 100.4 02/18/17 02:30 02/18/17 08:36 Ondansetron HCl (Zofran Inj) 4 mg Q6H PRN IVP NAUSEA OR VOMITING 02/18/17 02:30 Naloxone HCl 0.4 mg 0.4 mg UNSCH PRN IV SEE LABEL COMMENTS 02/18/17 02:30 Clindamycin Phosphate 600 mg/ Sodium Chloride 104 ml @ 208 mls/hr Q8H IV 02/18/17 10:00 02/24/17 01:48 Pharmacy Profile Note (Vancomycin Consult Pharmacy) 0 ml @ 0 mls/hr UNSCH OTHER 02/18/17 02:30 Dextrose (D50w (Vial) Inj) 25 ml UNSCH PRN IV PUSH HYPOGLYCEMIA-SEE COMMENTS 02/18/17 02:30 Glucagon (Glucagon Inj) 1 mg UNSCH PRN OTHER HYPOGLYCEMIA-SEE COMMENTS 02/18/17 02:30 Alprazolam (Xanax) 0.5 mg Q8H PRN PO ANXIETY 02/18/17 02:30 02/24/17 01:48 Baclofen (Lioresal) 10 mg TID PRN PO MUSCLE SPASM 02/18/17 02:30 02/18/17 15:17 Budesonide/ Formoterol Fumarate (Symbicort 160-4.5 Inh) 2 puff Q12HR INH 02/18/17 09:00 02/24/17 09:00 Digoxin (Lanoxin) 0.125 mg DAILY PO 02/18/17 09:00 02/24/17 09:43 Hydrochlorothiazide 25 mg 25 mg DAILY PO 02/18/17 09:00 02/24/17 09:43 Sodium Chloride (NS 1000 ml Inj) 1,000 ml @ 42 mls/hr [id number] IV 02/18/17 15:30 02/19/17 21:27 Hydromorphone HCl (Dilaudid Pf Inj) 0.5 mg Q4H PRN IV PUSH BREAKTHROUGH PAIN 02/18/17 16:00 Oxycodone/ Acetaminophen (Percocet 10-325 Mg) 1 tab Q4H PRN PO PAIN SCALE 4 TO 10 02/18/17 20:00 02/24/17 10:02 Guaifenesin (Mucinex Er) 600 mg BID PO 02/18/17 21:00 02/24/17 09:43 Acetaminophen/ Butalbital/ Caffeine (Fioricet 325-50-40) 1 tab Q8H PRN PO HEADACHE 02/19/17 09:15 02/21/17 16:37 Mupirocin (Bactroban Nasal 2% Oint) 1 applic BID EACH NARE 02/21/17 21:00 02/24/17 09:43 Heparin Sodium (Porcine) 5000 units 5,000 units Q8HR SQ 02/22/17 14:00 02/24/17 05:07 Vancomycin HCl/ Sodium Chloride (Vancomycin Inj/ NS 250 ml Inj) 250 ml @ 250 mls/hr Q12H IV 02/22/17 20:00 02/24/17 09:43 (Diana Joseph) Medical Decision Making MDM Remarks 61 y/o male s/p right occipital craniotomy for resection of meningioma performed in [place], subsequently developed right occipital soft tissue fluid collection (Diana Joseph) Plan Plan Remarks recommended evaluation with infectious disease physician discussed plan of care with patient and Dr. Arzola cleared to discharge from [facility] once cleared by infectious disease recommend he follow up with his surgeon in [place] (Diana Josehp) Attending Statement The exam, history, and the medical decision-making described in the above note were completed with the assistance of the mid-level provider. I reviewed and agree with the findings presented. I attest that I had a [id number] encounter with the patient on the same day, and personally performed and documented my assessment and findings in the medical record. (Reinaldo Francois MD) Diana Joseph February 24, 2017 11:47 Reinaldo Francois MD February 25, 2017 21:06
[2017-02-24] MEDS: SODIUM CHLOR 0.9% 1000 ML INJ 1,000 ML IV SCH (12:36)
[2017-02-24] MEDS ORDERED: WARFARIN SOD 10 MG TAB PO SCH ×2 (14:00→16:00)
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
[2017-02-24] MEDS: ACETAMIN 325 MG/BUTALBITAL 50 MG/CAFFEINE 40 MG TAB PO PRN (16:26)
--- NOTE | 2017-02-24 17:52 | PD.ID.CON ---
History of Present Illness Service ID Consult Requested By Dr. Arzola Reason for Consult Evaluation and management of possible infected seroma post neurosurgery Primary Care Physician Non-Staff Diagnoses: History of Present Illness 61-year-old gentleman with history of a right retromastoid approach for resection of meningioma done approximately [address] Cartagena at [facility]. Patient states that a few days after surgery he developed swelling around the surgical area. The swelling and pain has gotten progressively worse within the last few days reason why he came to the emergency department last night for evaluation. MRI of the cervical spine from 02/17/2017 showed evidence of the right occipital craniotomy and a deflated collection in the craniotomy defect and overlying the soft tissues and the right upper cervical region. The fluid collection is approximately 476 cm in size and does not clearly communicate with the CSF spaces. The CT of the cervical spine also shows right hemilaminectomy defect at the C1 level and the right C1 arch and plates are loose within the fluid collection. Patient denies any neurological deficits. Started on empiric vancomycin and clindamycin. Past Family Social History Allergies: Coded Allergies: Penicillin (Verified Allergy, Unknown, 02/17/17) *MDRO Multi-Drug Resistant Organism (Verified Adverse Reaction, Unknown, ) MRSA PCR Screen POSITIVE - 03/10/2016, 02/19/2017 MRSA (sputum) - 03/2016 Past Medical History COPD, atrial fibrillation on Coumadin, hepatitis C, seizures, traumatic brain injury, diabetes mellitus, hypertension, CHF Past Surgical History meningioma resection Reported Medications Reported Meds & Active Scripts Active Reported Novolog Inj (Insulin Aspart) 1,000 Unit/10 Ml Vial 0 SQ DIRECTED Sliding Scale as directed. Baclofen 10 Mg Tab 10 Mg PO TID PRN Xanax (Alprazolam) 0.5 Mg Tab 0.5 Mg PO Q8H PRN Levemir Inj (Insulin Detemir) 1,000 unit/ 10 ML Vial 15 Units SQ HS Do not mix with any other Insulin. Symbicort Inh (Budesonide/Formoterol Fumarate) 160-4.5 Mcg/Act Aero 2 Puff INH Q12HR Hydrochlorothiazide 25 Mg Tab 25 Mg PO DAILY Coumadin (Warfarin) 10 Mg Tab 10 Mg PO DAILY Digoxin 0.125 Mg Tab 0.125 Mg PO DAILY Active Ordered Medications Current Medications Medications (Trade) Dose Ordered Sig/Umu Route Start Time Stop Time Status Last Admin (NS Flush) 2 ml UNSCH PRN IV FLUSH 02/18/17 02:30 (NS Flush) 2 ml BID IV FLUSH 02/18/17 09:00 02/24/17 09:44 (Tylenol) 650 mg Q4H PRN PO 02/18/17 02:30 02/18/17 08:36 (Zofran Inj) 4 mg Q6H PRN IVP 02/18/17 02:30 Naloxone HCl 0.4 mg 0.4 mg UNSCH PRN IV 02/18/17 02:30 Clindamycin Phosphate 600 mg/ Sodium Chloride 104 ml @ 208 mls/hr Q8H IV 02/18/17 10:00 02/24/17 12:34 (Vancomycin Consult Pharmacy) 0 ml @ 0 mls/hr UNSCH OTHER 02/18/17 02:30 (D50w (Vial) Inj) 25 ml UNSCH PRN IV PUSH 02/18/17 02:30 (Glucagon Inj) 1 mg UNSCH PRN OTHER 02/18/17 02:30 (Xanax) 0.5 mg Q8H PRN PO 02/18/17 02:30 02/24/17 16:23 (Lioresal) 10 mg TID PRN PO 02/18/17 02:30 02/18/17 15:17 (Symbicort 160-4.5 Inh) 2 puff Q12HR INH 02/18/17 09:00 02/24/17 09:00 (Lanoxin) 0.125 mg DAILY PO 02/18/17 09:00 02/24/17 09:43 Hydrochlorothiazide 25 mg 25 mg DAILY PO 02/18/17 09:00 02/24/17 09:43 (NS 1000 ml Inj) 1,000 ml @ 42 mls/hr [id number] IV 02/18/17 15:30 02/24/17 12:36 (Dilaudid Pf Inj) 0.5 mg Q4H PRN IV PUSH 02/18/17 16:00 (Percocet 10-325 Mg) 1 tab Q4H PRN PO 02/18/17 20:00 02/24/17 14:13 (Mucinex Er) 600 mg BID PO 02/18/17 21:00 02/24/17 09:43 (Fioricet 325-50-40) 1 tab Q8H PRN PO 02/19/17 09:15 02/24/17 16:26 (Bactroban Nasal 2% Oint) 1 applic BID EACH NARE 02/21/17 21:00 02/24/17 09:43 Heparin Sodium (Porcine) 5000 units 5,000 units Q8HR SQ 02/22/17 14:00 02/24/17 14:15 (Vancomycin Inj/ NS 250 ml Inj) 250 ml @ 250 mls/hr Q12H IV 02/22/17 20:00 02/24/17 09:43 (Coumadin) 10 mg DAILY PO 02/24/17 16:00 02/24/17 16:23 Family History NC to current ID problem. Social History no smoking, no ETOH or illicit drug use Physical Exam Vital Signs Vital Signs Date Time Temp Pulse Resp B/P Pulse Ox O2 Delivery O2 Flow Rate FiO2 02/24/17 16:00 99.2 83 17 139/86 96 02/24/17 12:00 97.4 79 17 96/62 98 02/24/17 08:00 95.5 70 18 107/68 99 02/24/17 08:00 99 Nasal Cannula 3.00 Humidified 02/24/17 07:31 98 Nasal Cannula 3.00 02/24/17 00:36 99.8 84 18 103/64 92 02/23/17 20:52 99 Nasal Cannula 3.00 02/23/17 20:10 97.2 72 18 92/65 94 Physical Exam GENERAL: This is a well-nourished, well-developed patient, in no apparent distress. SKIN: No rashes, ecchymoses or lesions. Cool and dry. HEAD: Patient has a significant boggy swelling extends from the posterior auricular area down to the nape of his neck associated with erythema and a central lesion which looks like a pimple. Patient also has some erythematous extends into his rhodes area. Patient has extensive scaling of his entire scalp his rhodes area. EYES: Pupils equal round and reactive. Extraocular motions intact. No scleral icterus. No injection or drainage. ENT: Nose without bleeding, purulent drainage or septal hematoma. Throat without erythema, tonsillar hypertrophy or exudate. Uvula midline. Airway patent. NECK: Trachea midline. Supple, nontender, no meningeal signs. CARDIOVASCULAR: Regular rate and rhythm without murmurs, gallops, or rubs. RESPIRATORY: Clear to auscultation. Breath sounds equal bilaterally. No wheezes , rales, or rhonchi. GASTROINTESTINAL: Abdomen soft, non-tender, nondistended. MUSCULOSKELETAL: Extremities without clubbing, cyanosis, or edema. NEUROLOGICAL: Awake and alert. Grossly nonfocal Psych cooperative IV line sites with no evidence of infection. Result Diagram: 02/23/17 0940 Imaging Last Impressions Neck CT 02/18/17 Signed Impressions: Service Date/Time: Saturday, February 18, 2017 00:58 - CONCLUSION: 1. Right occipital craniotomy changes with an associated fluid collection as above, thought to most likely be a seroma. 2. The attempted fixation of the craniotomy bone fragment has failed. The bone fragment and 3 malleable plates are displaced into the fluid collection. There is a loose screw but the 3 plates appear attached to the craniotomy bone fragment by at least one screw each. Beau Valle MD Chest X-Ray 02/17/17 Signed Impressions: Service Date/Time: Friday, February 17, 2017 21:07 - CONCLUSION: Slight bibasilar linear atelectasis. Noé Adams MD Cervical Spine MRI 02/17/17 Signed Impressions: Service Date/Time: Friday, February 17, 2017 23:37 - CONCLUSION: 1. Limited, abbreviated study. Patient refused further imaging before axial images were obtained and before contrast could be given. 2. Postop right occipital craniotomy with a fairly large fluid collection in the craniotomy defect and overlying soft tissues that is nonspecific but most likely a seroma. No definite communication with the CSF spaces. Mild mass effect on the right side of the cerebellum. Other than interdigitated mildly between the posterior processes of C1 and C2, the fluid collection does not significantly impact the cervical spine. 3. Multilevel cervical spine degenerative changes as above. There are mild degrees of spinal stenosis without cord compression or cord signal abnormality and multiple levels of upper moderate foraminal stenosis. Please see above. Beau Valle MD Brain MRI 02/17/17 Signed Impressions: Service Date/Time: Friday, February 17, 2017 23:37 - CONCLUSION: 1. Limited, abbreviated study. Please see above. 2. Right occipital craniotomy defect with a fluid collection, presumably a seroma. 3. No bleed or evidence of infarct. 4. Sinus disease. Beau Valle MD Assessment and Plan Assessment and Plan Possible infected seroma. Definitely looks like cellulitis on top of the skin over the seroma. Whether deeper seroma infection cannot be determined on clinical exam s/p meningioma resection at [facility]. COPD, atrial fibrillation on Coumadin, hepatitis C, seizures, traumatic brain injury, diabetes mellitus, hypertension, CHF Recs: Continue Vanco IV Continue Clinda ok to change to oral. Unfortunately, ID consulted after multiple days of IV antibiotics and so any workup at this time such as LP or Tagged WBC scan may not be truely helpful. Will d.w on Sunday about the clinical findings of cellulitis on my exam. Patient reports improvement (reduction in swelling) since antibiotics started in addition to reduction in headache. He reports fevers and chills even prior to admission. Check CRP Check Procalcitonin. Follow cultures Follow clinically. Will follow next on Sunday after discussion with . Will likely need IV antibiotics on DC but depends on ya Bernstein. Yu Ivy MD February 24, 2017 17:52
[2017-02-25] VITALS (8 sets, daily range): BP systolic 94–153; BP diastolic 52–72; PULSE 76–94; RESP 16–22; TEMP 96.2–99.8; O2SAT 94–98
[2017-02-25] MEDS: RESP: ALBUTEROL 2.5 MG/IPRATROPIUM 0.5 MG NEB (SCH) NEB ×6 (00:21→20:39)
[2017-02-25] MEDS: ACETAMIN 325 MG/BUTALBITAL 50 MG/CAFFEINE 40 MG TAB PO PRN (00:27)
[2017-02-25] MEDS: ALPRAZolam 0.5 MG TAB PO PRN (00:27)
[2017-02-25] MEDS: CLINDAMYCIN INJ 600 MG in SODIUM CHLORIDE 0.9% INJ 100 ML IV SCH ×2 (00:55→10:50)
[2017-02-25] MEDS: oxyCODONE/ACETAMINOPHEN 10 MG/325 MG TAB PO PRN ×5 (04:12→22:36)
[2017-02-25 05:26] LABS: PROTHROMBIN TIME - PATIENT 11.4 SEC (9.8-11.6)
[2017-02-25 05:36] LABS: BICARBONATE 30.3 MEQ/L (21.0-32.0); MAGNESIUM 1.9 MG/DL (1.5-2.5); POTASSIUM 3.8 MEQ/L (3.5-5.1)
[2017-02-25] MEDS: INSULIN ASPART SUPPLEMENTAL SCALE SQ SCH ×4 (05:59→20:13)
[2017-02-25] MEDS: HEPARIN SODIUM - SQ 10,000 UNITS/ML VIAL SQ SCH ×3 (05:59→22:35)
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
[2017-02-25] MEDS: VANCOMYCIN 1,000 MG/NS 250 ML IV SCH ×2 (08:30)
[2017-02-25] MEDS: DIGOXIN 0.125 MG TAB PO SCH (08:31)
[2017-02-25] MEDS: HYDROCHLOROTHIAZIDE 25 MG TAB PO SCH (08:31)
[2017-02-25] MEDS: BUDESONIDE-FORMOTEROL 160/4.5 MCG INHALER INH SCH ×2 (08:31→20:07)
[2017-02-25] MEDS: MUPIROCIN 2% OINT 1 APPLIC/GM SYR EACH NARE SCH ×2 (08:31→20:04)
[2017-02-25] MEDS: guaiFENesin E.R. 600 MG TAB PO SCH ×2 (08:31→20:04)
[2017-02-25] MEDS: SODIUM CHLORIDE 0.9% FLUSH 10 ML FLUSH IV FLUSH SCH ×2 (08:31→20:07)
[2017-02-25] MEDS: SODIUM CHLOR 0.9% 1000 ML INJ 1,000 ML IV SCH (10:52)
--- NOTE | 2017-02-25 11:32 | HHI.NSPN ---
(Diana Joseph) Note Status Status: Progress Note (Diana Joseph) Interval History Interval History 61-year-old gentleman with history of a right retromastoid approach for resection of meningioma done approximately [address] Cartagena at [facility]. Patient states that a few days after surgery he developed swelling around the surgical area. The swelling and pain has gotten progressively worse within the last few days reason why he came to the emergency department last night for evaluation. MRI of the cervical spine from 02/17/2017 showed evidence of the right occipital craniotomy and a deflated collection in the craniotomy defect and overlying the soft tissues and the right upper cervical region. The fluid collection is approximately 476 cm in size and does not clearly communicate with the CSF spaces. The CT of the cervical spine also shows right hemilaminectomy defect at the C1 level and the right C1 arch and plates are loose within the fluid collection. Patient denies any neurological deficits. Started on empiric vancomycin and clindamycin. 02/19: Patient is awake & alert when seen this afternoon. He complains of neck pain, headache and numbness to the swelling on the right side of his head & neck. The patient does live in the [place] area but also stated "I don't want to deal with that samuel no more and he don't want to see me either." 02/20: Patient is doing well. He still complains of neck pain, headache with numbness above the swelling to the right side of the head & neck. 02/21: Patient continues to do well. He continues to have pain to the neck & back of the head with some numbness. He is currently on contact precautions due to a positive MRSA PCR per Nursing. 02/22: This morning the patient states he is doing well. He does have a headache that started last night. He continues to be on contact isolation. 02/24: Neuro stable overnight, continue to have pain and tenderness to the swollen site 02/25: no changes to surgical site but overall feeling a better. ID consulted yesterday noted. (Diana Joseph) Labs, Micro, & Vital Signs Results Date Time Temp Pulse Resp B/P Pulse Ox O2 Delivery O2 Flow Rate FiO2 02/25/17 08:54 96 Nasal Cannula 3.00 02/25/17 08:25 Nasal Cannula 3.00 Humidified 02/25/17 08:00 98.9 86 18 116/72 95 02/25/17 04:00 99.6 91 18 104/71 96 02/25/17 00:00 99.8 94 22 103/69 95 02/25/17 00:00 02/24/17 22:02 93 Nasal Cannula 3.00 02/24/17 21:30 98.1 77 20 98/58 97 02/24/17 20:33 Nasal Cannula 3.00 02/24/17 16:00 99.2 83 17 139/86 96 02/24/17 12:00 97.4 79 17 96/62 98 02/25/17 06:59 Intake Total 1965 ml Output Total 300 ml Balance 1665 ml Constitutional Vital Signs Date Time Temp Pulse Resp B/P Pulse Ox O2 Delivery O2 Flow Rate FiO2 02/25/17 08:54 96 Nasal Cannula 3.00 02/25/17 08:25 Nasal Cannula 3.00 Humidified 02/25/17 08:00 98.9 86 18 116/72 95 02/25/17 04:00 99.6 91 18 104/71 96 02/25/17 00:00 99.8 94 22 103/69 95 02/25/17 00:00 02/24/17 22:02 93 Nasal Cannula 3.00 02/24/17 21:30 98.1 77 20 98/58 97 02/24/17 20:33 Nasal Cannula 3.00 02/24/17 16:00 99.2 83 17 139/86 96 02/24/17 12:00 97.4 79 17 96/62 98 02/25/17 06:59 Intake Total 1965 ml Output Total 300 ml Balance 1665 ml (Diana Joseph) Review of Systems/Exam Exam Alert, oriented x 3. Speech is fluent and follow commands well. Right occipital soft tissue swelling, no drainage. Motor: Motor strength 5/5 to LUE & BLE and 4+/5 to RUE. Sensation grossly intact to light touch to the extremities. (Diana Joseph) Medications Current Medications Current Medications Medications (Trade) Dose Ordered Sig/Umu Route PRN Reason Start Time Stop Time Status Last Admin Dose Admin Sodium Chloride (NS Flush) 2 ml UNSCH PRN IV FLUSH FLUSH AFTER USING IV ACCESS 02/18/17 02:30 Sodium Chloride (NS Flush) 2 ml BID IV FLUSH 02/18/17 09:00 02/25/17 08:31 Acetaminophen (Tylenol) 650 mg Q4H PRN PO TEMP > 100.4 02/18/17 02:30 02/18/17 08:36 Ondansetron HCl (Zofran Inj) 4 mg Q6H PRN IVP NAUSEA OR VOMITING 02/18/17 02:30 Naloxone HCl 0.4 mg 0.4 mg UNSCH PRN IV SEE LABEL COMMENTS 02/18/17 02:30 Clindamycin Phosphate 600 mg/ Sodium Chloride 104 ml @ 208 mls/hr Q8H IV 02/18/17 10:00 02/25/17 10:50 Pharmacy Profile Note (Vancomycin Consult Pharmacy) 0 ml @ 0 mls/hr UNSCH OTHER 02/18/17 02:30 Dextrose (D50w (Vial) Inj) 25 ml UNSCH PRN IV PUSH HYPOGLYCEMIA-SEE COMMENTS 02/18/17 02:30 Glucagon (Glucagon Inj) 1 mg UNSCH PRN OTHER HYPOGLYCEMIA-SEE COMMENTS 02/18/17 02:30 Alprazolam (Xanax) 0.5 mg Q8H PRN PO ANXIETY 02/18/17 02:30 02/25/17 00:27 Baclofen (Lioresal) 10 mg TID PRN PO MUSCLE SPASM 02/18/17 02:30 02/18/17 15:17 Budesonide/ Formoterol Fumarate (Symbicort 160-4.5 Inh) 2 puff Q12HR INH 02/18/17 09:00 02/25/17 08:31 Digoxin (Lanoxin) 0.125 mg DAILY PO 02/18/17 09:00 02/25/17 08:31 Hydrochlorothiazide 25 mg 25 mg DAILY PO 02/18/17 09:00 02/25/17 08:31 Sodium Chloride (NS 1000 ml Inj) 1,000 ml @ 42 mls/hr Q01N75H IV 02/18/17 15:30 02/24/17 12:36 Hydromorphone HCl (Dilaudid Pf Inj) 0.5 mg Q4H PRN IV PUSH BREAKTHROUGH PAIN 02/18/17 16:00 Oxycodone/ Acetaminophen (Percocet 10-325 Mg) 1 tab Q4H PRN PO PAIN SCALE 4 TO 10 02/18/17 20:00 02/25/17 08:34 Guaifenesin (Mucinex Er) 600 mg BID PO 02/18/17 21:00 02/25/17 08:31 Acetaminophen/ Butalbital/ Caffeine (Fioricet 325-50-40) 1 tab Q8H PRN PO HEADACHE 02/19/17 09:15 02/25/17 00:27 Mupirocin (Bactroban Nasal 2% Oint) 1 applic BID EACH NARE 02/21/17 21:00 02/25/17 08:31 Heparin Sodium (Porcine) 5000 units 5,000 units Q8HR SQ 02/22/17 14:00 02/25/17 05:59 Vancomycin HCl/ Sodium Chloride (Vancomycin Inj/ NS 250 ml Inj) 250 ml @ 250 mls/hr Q12H IV 02/22/17 20:00 02/25/17 08:30 Warfarin Sodium (Coumadin) 10 mg DAILY@1600 PO 02/25/17 16:00 Patient Medication Teaching (Coumadin Booklet) 1 ONCE ONCE .XX 02/25/17 16:00 02/25/17 16:01 (Diana Joseph) Medical Decision Making MDM Remarks 61 y/o male s/p right occipital craniotomy for resection of meningioma performed in [place], subsequently developed right occipital soft tissue fluid collection (Diana Joseph) Plan Plan Remarks ID consultation, cont current care recommend he follow up with his surgeon in [place] (Diana Joseph) Attending Statement The exam, history, and the medical decision-making described in the above note were completed with the assistance of the mid-level provider. I reviewed and agree with the findings presented. I attest that I had a [id number] encounter with the patient on the same day, and personally performed and documented my assessment and findings in the medical record. (Reinaldo Francois MD) Diana Joseph February 25, 2017 11:32 Reinaldo Francois MD February 25, 2017 21:37
[2017-02-25] MEDS: WARFARIN SOD 10 MG TAB PO SCH (16:07)
--- NOTE | 2017-02-25 17:19 | HHI.IDPN ---
Subjective Subjective Remarks 61-year-old gentleman with history of a right retromastoid approach for resection of meningioma done approximately [address] Cartagena at [facility]. Patient states that a few days after surgery he developed swelling around the surgical area. The swelling and pain has gotten progressively worse within the last few days reason why he came to the emergency department last night for evaluation. MRI of the cervical spine from 02/17/2017 showed evidence of the right occipital craniotomy and a deflated collection in the craniotomy defect and overlying the soft tissues and the right upper cervical region. The fluid collection is approximately 476 cm in size and does not clearly communicate with the CSF spaces. The CT of the cervical spine also shows right hemilaminectomy defect at the C1 level and the right C1 arch and plates are loose within the fluid collection. Patient denies any neurological deficits. Started on empiric vancomycin and clindamycin. Overnight events reviewed Fevers low grade 99.9 Headaches resolved. No N/V RN taking care of him today knows him from admission date and says redness better than on admission. No diarrhea No neuro deficit. Antibiotics Vanco IV Clinda IV Lines Line sites with no e.o infection. Past Medical History reviewed. Allergies: Coded Allergies: Penicillin (Verified Allergy, Unknown, 02/17/17) *MDRO Multi-Drug Resistant Organism (Verified Adverse Reaction, Unknown, ) MRSA PCR Screen POSITIVE - 03/10/2016, 02/19/2017 MRSA (sputum) - 03/2016 Objective . Vital Signs Date Time Temp Pulse Resp B/P Pulse Ox O2 Delivery O2 Flow Rate FiO2 02/25/17 12:00 96.2 84 18 101/59 96 02/25/17 08:54 96 Nasal Cannula 3.00 02/25/17 08:25 Nasal Cannula 3.00 Humidified 02/25/17 08:00 98.9 86 18 116/72 95 02/25/17 04:00 99.6 91 18 104/71 96 02/25/17 00:00 99.8 94 22 103/69 95 02/25/17 00:00 02/24/17 22:02 93 Nasal Cannula 3.00 02/24/17 21:30 98.1 77 20 98/58 97 02/24/17 20:33 Nasal Cannula 3.00 02/24/17 02/24/17 02/25/17 15:00 23:00 07:00 Intake Total 1445 ml 520 ml Output Total 300 ml Balance 1445 ml 520 ml -300 ml Intake Oral 960 ml 520 ml IV Total 485 ml Output Urine Total 300 ml # Voids 4 2 # Bowel Movements 1 0 . Laboratory Tests Test 02/24/17 02/25/17 19:51 04:33 C-Reactive Protein 0.67 MG/DL Sodium Level 127 MEQ/L Potassium Level 3.8 MEQ/L Chloride Level 90 MEQ/L Carbon Dioxide Level 30.3 MEQ/L Anion Gap 7 MEQ/L Blood Urea Nitrogen 8 MG/DL Creatinine 0.88 MG/DL Estimat Glomerular Filtration 88 ML/MIN Rate Random Glucose 150 MG/DL Calcium Level 9.7 MG/DL Phosphorus Level 2.2 MG/DL Magnesium Level 1.9 MG/DL Procalcitonin LESS THAN 0.05 ng/mL Imaging Last Impressions Neck CT 02/18/17 0000 Signed Impressions: Service Date/Time: Saturday, February 18, 2017 00:58 - CONCLUSION: 1. Right occipital craniotomy changes with an associated fluid collection as above, thought to most likely be a seroma. 2. The attempted fixation of the craniotomy bone fragment has failed. The bone fragment and 3 malleable plates are displaced into the fluid collection. There is a loose screw but the 3 plates appear attached to the craniotomy bone fragment by at least one screw each. Beau Valle MD Chest X-Ray 02/17/17 0000 Signed Impressions: Service Date/Time: Friday, February 17, 2017 21:07 - CONCLUSION: Slight bibasilar linear atelectasis. Noé Adams MD Cervical Spine MRI 02/17/17 0000 Signed Impressions: Service Date/Time: Friday, February 17, 2017 23:37 - CONCLUSION: 1. Limited, abbreviated study. Patient refused further imaging before axial images were obtained and before contrast could be given. 2. Postop right occipital craniotomy with a fairly large fluid collection in the craniotomy defect and overlying soft tissues that is nonspecific but most likely a seroma. No definite communication with the CSF spaces. Mild mass effect on the right side of the cerebellum. Other than interdigitated mildly between the posterior processes of C1 and C2, the fluid collection does not significantly impact the cervical spine. 3. Multilevel cervical spine degenerative changes as above. There are mild degrees of spinal stenosis without cord compression or cord signal abnormality and multiple levels of upper moderate foraminal stenosis. Please see above. Beau Valle MD Brain MRI 02/17/17 0000 Signed Impressions: Service Date/Time: Friday, February 17, 2017 23:37 - CONCLUSION: 1. Limited, abbreviated study. Please see above. 2. Right occipital craniotomy defect with a fluid collection, presumably a seroma. 3. No bleed or evidence of infarct. 4. Sinus disease. Beau Valle MD Physical Exam GENERAL: This is a well-nourished, well-developed patient, in no apparent distress. SKIN: No rashes, ecchymoses or lesions. Cool and dry. HEAD: Patient has a significant boggy swelling extends from the posterior auricular area down to the nape of his neck associated with erythema and a central lesion which looks like a pimple. Patient also has some erythematous extends into his rhodes area. Patient has extensive scaling of his entire scalp his rhodes area. EYES: Pupils equal round and reactive. Extraocular motions intact. No scleral icterus. No injection or drainage. ENT: Nose without bleeding, purulent drainage or septal hematoma. Throat without erythema, tonsillar hypertrophy or exudate. Uvula midline. Airway patent. NECK: Trachea midline. Supple, nontender, no meningeal signs. CARDIOVASCULAR: Regular rate and rhythm without murmurs, gallops, or rubs. RESPIRATORY: Clear to auscultation. Breath sounds equal bilaterally. No wheezes , rales, or rhonchi. GASTROINTESTINAL: Abdomen soft, non-tender, nondistended. MUSCULOSKELETAL: Extremities without clubbing, cyanosis, or edema. NEUROLOGICAL: Awake and alert. Grossly nonfocal Psych cooperative IV line sites with no evidence of infection. Assessment & Plan Remarks Possible infected seroma. Definitely looks like cellulitis on top of the skin over the seroma. Whether deeper seroma infection cannot be determined on clinical exam s/p meningioma resection at [facility]. COPD, atrial fibrillation on Coumadin, hepatitis C, seizures, traumatic brain injury, diabetes mellitus, hypertension, CHF Recs: DC Vanco IV (? drug fever) Continue Clinda ok to change to oral. Unfortunately, ID consulted after multiple days of IV antibiotics and so any workup at this time such as LP or Tagged WBC scan may not be truely helpful. Will d.w on Sunday about the clinical findings of cellulitis on my exam. Patient reports improvement (reduction in swelling) since antibiotics started in addition to reduction in headache. RN from few days back agrees. CRP minimally elevated. Normal Procalcitonin. Follow cultures Follow clinically. NOT ready for DC. Discussion with after he follows up. Patient refuses to follow up with the surgeon that performed surgery. Need Neurosurgery follow up locally. Low grade fevers: DC vanco IV today to assess response. Yu Ivy MD February 25, 2017 17:19
[2017-02-25] MEDS: CLINDAMYCIN 150 MG CAP PO SCH (17:58)
[2017-02-25 19:54] LABS: AUTOMATED NEUTROPHIL # 3.5 TH/MM3 (1.8-7.7); BASOPHIL # 0.1 TH/MM3 (0-0.2); EOSINOPHIL # 0.1 TH/MM3 (0-0.4); HEMATOCRIT 39.3 % (39.0-51.0); HEMO FLAGS DIFF FINAL; LYMPH % 25.9 % (9.0-44.0); LYMPHOCYTE # 1.5 TH/MM3 (1.0-4.8); MEAN CELL VOLUME 78.3 FL (80.0-100.0); MEAN CORPUSCULAR HEMOGLOBIN 25.6 PG (27.0-34.0); MEAN CORPUSCULAR HGB CONC 32.7 % (32.0-36.0); MONO % 11.1 % (0.0-8.0); PLATELET COUNT 201 TH/MM3 (150-450); RED BLOOD COUNT 5.02 MIL/MM3 (4.50-5.90); WHITE BLOOD COUNT 5.9 TH/MM3 (4.0-11.0)
[2017-02-25 20:18] LABS: ANION GAP 8 MEQ/L (5-15); AST (GOT) 18 U/L (15-37); BICARBONATE 32.4 MEQ/L (21.0-32.0); BLOOD UREA NITROGEN 9 MG/DL (7-18); CHLORIDE 88 MEQ/L (98-107); GLOMERULAR FILTRATION RATE 75 ML/MIN (>89); POTASSIUM 3.8 MEQ/L (3.5-5.1); SODIUM (NA) 128 MEQ/L (136-145)
[2017-02-25 20:22] LABS: ALKALINE PHOSPHATASE 59 U/L (45-117); ALT (GPT) 19 U/L (12-78); TOTAL BILIRUBIN ADULT 0.3 MG/DL (0.2-1.0)
[2017-02-26] VITALS (8 sets, daily range): BP systolic 92–134; BP diastolic 57–78; PULSE 79–95; RESP 16–18; TEMP 97.8–101.1; O2SAT 91–98
[2017-02-26] MEDS: CLINDAMYCIN 150 MG CAP PO SCH ×5 (00:08→23:54)
[2017-02-26] MEDS: RESP: ALBUTEROL 2.5 MG/IPRATROPIUM 0.5 MG NEB (SCH) NEB ×6 (00:30→22:24)
[2017-02-26] MEDS: oxyCODONE/ACETAMINOPHEN 10 MG/325 MG TAB PO PRN ×6 (02:29→22:54)
[2017-02-26] MEDS: HEPARIN SODIUM - SQ 10,000 UNITS/ML VIAL SQ SCH ×3 (05:44→21:07)
[2017-02-26] MEDS: INSULIN ASPART SUPPLEMENTAL SCALE SQ SCH ×4 (05:51→21:06)
[2017-02-26 05:56] LABS: PROTHROMBIN TIME - PATIENT 11.4 SEC (9.8-11.6)
[2017-02-26] MEDS: HYDROCHLOROTHIAZIDE 25 MG TAB PO SCH (09:00)
--- NOTE | 2017-02-26 09:50 | RADRPT ---
EXAM DATE/TIME: 02/26/2017 09:33 [place] COMPARISON: CHEST SINGLE AP, February 17, 2017, 21:07. INDICATIONS : Dyspnea. MEDICAL HISTORY : None. SURGICAL HISTORY : None. ENCOUNTER: Subsequent ACUITY: 2 weeks PAIN SCORE: 0/10 LOCATION: Bilateral chest FINDINGS: A single view of the chest demonstrates the lungs to be symmetrically aerated without evidence of mas s, infiltrate or effusion. The cardiomediastinal contours are unremarkable. Osseous structures are intact. CONCLUSION: No acute disease. Javon Balderas MD on February 26, 2017 at 9:48 Board Certified Radiologist. This report was verified electronically.
[2017-02-26] MEDS: DIGOXIN 0.125 MG TAB PO SCH (10:07)
[2017-02-26] MEDS: MUPIROCIN 2% OINT 1 APPLIC/GM SYR EACH NARE SCH ×2 (10:08→21:04)
[2017-02-26] MEDS: guaiFENesin E.R. 600 MG TAB PO SCH ×2 (10:08→21:03)
[2017-02-26] MEDS: BUDESONIDE-FORMOTEROL 160/4.5 MCG INHALER INH SCH ×2 (10:12→21:06)
[2017-02-26] MEDS: SODIUM CHLORIDE 0.9% FLUSH 10 ML FLUSH IV FLUSH SCH ×2 (10:13→21:04)
--- NOTE | 2017-02-26 12:18 | HHI.NSPN ---
(Reji Paez Saranya HERMAN) Note Status Status: Progress Note (Reji Paez) Interval History Interval History 02/18: 61-year-old gentleman with history of a right retromastoid approach for resection of meningioma done approximately [address] Cartagena at [facility]. Patient states that a few days after surgery he developed swelling around the surgical area. The swelling and pain has gotten progressively worse within the last few days reason why he came to the emergency department last night for evaluation. MRI of the cervical spine from 02/17/2017 showed evidence of the right occipital craniotomy and a deflated collection in the craniotomy defect and overlying the soft tissues and the right upper cervical region. The fluid collection is approximately 476 cm in size and does not clearly communicate with the CSF spaces. The CT of the cervical spine also shows right hemilaminectomy defect at the C1 level and the right C1 arch and plates are loose within the fluid collection. Patient denies any neurological deficits. Started on empiric vancomycin and clindamycin. 02/19: Patient is awake & alert when seen this afternoon. He complains of neck pain, headache and numbness to the swelling on the right side of his head & neck. The patient does live in the [place] area but also stated "I don't want to deal with that samuel no more and he don't want to see me either." 02/20: Patient is doing well. He still complains of neck pain, headache with numbness above the swelling to the right side of the head & neck. 02/21: Patient continues to do well. He continues to have pain to the neck & back of the head with some numbness. He is currently on contact precautions due to a positive MRSA PCR per Nursing. 02/22: This morning the patient states he is doing well. He does have a headache that started last night. He continues to be on contact isolation. 02/24: Neuro stable overnight, continue to have pain and tenderness to the swollen site 02/25: no changes to surgical site but overall feeling a better. ID consulted yesterday noted. 02/26: Patient awake & alert, states he is doing "okay" today. Still with headache and pain to the back of the head. He endorsed some nausea earlier but none at present. A CXR this morning was unremarkable. He spiked a temp of 101.1 at midnight. A CBC was just drawn when the patient was seen. (Reji Paez) Labs, Micro, & Vital Signs Results Allergies Coded Allergies Type Severity Reaction Last Updated Verified Penicillin Allergy Unknown 02/17/17 Yes *MDRO Multi-Drug Resistant Organism Adverse Reaction Unknown 02/19/17 Yes Recent Impressions Chest X-Ray 02/26/17 0000 Signed Impressions: Service Date/Time: Sunday, February 26, 2017 09:33 - CONCLUSION: No acute disease. Javon Balderas MD // 05:59 17:59 05:59 17:59 05:59 17:59 Intake Total 480 ml 1685 ml 520 ml 960 ml 240 ml 240 ml Output Total 975 ml 300 ml 400 ml Balance 480 ml 710 ml 220 ml 960 ml 240 ml -160 ml Intake Oral 480 ml 1200 ml 520 ml 960 ml 240 ml 240 ml IV Total 485 ml Output Urine Total 975 ml 300 ml 400 ml # Voids 2 4 2 5 0 # Bowel Movements 0 1 0 1 0 0 Laboratory Tests Test 02/24/17 02/25/17 02/25/17 02/26/17 19:51 04:33 19:21 05:34 C-Reactive Protein 0.67 MG/DL Prothrombin Time 11.4 SEC 11.4 SEC Prothromb Time International 1.0 RATIO 1.0 RATIO Ratio Sodium Level 127 MEQ/L 128 MEQ/L Potassium Level 3.8 MEQ/L 3.8 MEQ/L Chloride Level 90 MEQ/L 88 MEQ/L Carbon Dioxide Level 30.3 MEQ/L 32.4 MEQ/L Anion Gap 7 MEQ/L 8 MEQ/L Blood Urea Nitrogen 8 MG/DL 9 MG/DL Creatinine 0.88 MG/DL 1.01 MG/DL Estimat Glomerular Filtration 88 ML/MIN 75 ML/MIN Rate Random Glucose 150 MG/DL 115 MG/DL Calcium Level 9.7 MG/DL 9.7 MG/DL Phosphorus Level 2.2 MG/DL Magnesium Level 1.9 MG/DL Procalcitonin LESS THAN 0.05 ng/mL White Blood Count 5.9 TH/MM3 Red Blood Count 5.02 MIL/MM3 Hemoglobin 12.9 GM/DL Hematocrit 39.3 % Mean Corpuscular Volume 78.3 FL Mean Corpuscular Hemoglobin 25.6 PG Mean Corpuscular Hemoglobin 32.7 % Concent Red Cell Distribution Width 16.0 % Platelet Count 201 TH/MM3 Mean Platelet Volume 8.2 FL Neutrophils (%) (Auto) 60.0 % Lymphocytes (%) (Auto) 25.9 % Monocytes (%) (Auto) 11.1 % Eosinophils (%) (Auto) 2.0 % Basophils (%) (Auto) 1.0 % Neutrophils # (Auto) 3.5 TH/MM3 Lymphocytes # (Auto) 1.5 TH/MM3 Monocytes # (Auto) 0.7 TH/MM3 Eosinophils # (Auto) 0.1 TH/MM3 Basophils # (Auto) 0.1 TH/MM3 CBC Comment DIFF FINAL Differential Comment Total Bilirubin 0.3 MG/DL Aspartate Amino Transf 18 U/L (AST/SGOT) Alanine Aminotransferase 19 U/L (ALT/SGPT) Alkaline Phosphatase 59 U/L Total Protein 7.3 GM/DL Albumin 3.5 GM/DL Constitutional Vital Signs Date Time Temp Pulse Resp B/P Pulse Ox O2 Delivery O2 Flow Rate FiO2 02/26/17 11:52 98.4 83 16 104/69 97 02/26/17 08:45 94 Nasal Cannula 3.00 02/26/17 07:31 98.7 86 17 94/66 94 02/26/17 04:05 100.3 95 17 119/74 96 02/26/17 00:00 101.1 90 17 134/78 95 02/25/17 23:35 16 02/25/17 20:39 98 Nasal Cannula 3.00 02/25/17 20:00 97.3 76 16 94/54 95 02/25/17 16:00 97.7 81 18 98/52 94 02/26/17 06:59 Intake Total 1440 ml Output Total 400 ml Balance 1040 ml (Reji Paez) Review of Systems/Exam ROS Constitutional: He woke up during the night sweating. HEENT: He pain, swelling and numbness to the right side of the head and neck. Neck: He has pain, swelling and numbness to the right side of the head and neck. Respiratory: He has had some shortness of breath. He denies productive cough. Cardiac: He denies any chest pain, palpitations or irregular heart beat. GI: He did have some nausea earlier but none at present. He denies any abdominal pain, vomiting or bowel incontinence. : He denies any bladder incontinence. Back: He denies any back pain. Extremities: He denies any arm or leg pain or weakness. Neuro: He has a headache. The only numbness he has is to the upper scalp at the top of the swelling. He denies any numbness, tingling or weakness to the extremities. Exam General: Well developed, well nourished male who appears his stated age, NAD. HEENT: Right parietoccipital scalp swelling that is soft & fluctuant, feels softer, warmth & erythema TTP w/decreased sensation to the scalp superior to the swelling. His head & neck are rotated down toward the left shoulder. Neck: Midline & right posterolateral neck swelling that is soft & fluctuant, feels softer, warmth & erythema TTP. His head & neck are rotated down toward the left shoulder. No JVD, trachea midline. Respiratory: CTAB w/o W/R/R but decreased, equal excursion, non-laboured, on NC. CV: S1S2 w/RRR w/o M/G/R, radial & pedal pulses 2+ bilaterally, cap refill < 2 sec. GI: Abdomen soft, nontender, obese, positive bowel sounds. Extremities: BLEVINS, no evident deformity, discolouration or clubbing. Neuro: AAOx3. Speech clear & appropriate. Follows commands. Sensation grossly intact to light touch to the extremities. Motor strength 5/5 to LUE & BLE and 4+ /5 to RUE. (Reji Paez) Medications Current Medications Current Medications Medications (Trade) Dose Ordered Sig/Umu Route Start Time Stop Time Status Last Admin (NS Flush) 2 ml UNSCH PRN IV FLUSH 02/18/17 02:30 (NS Flush) 2 ml BID IV FLUSH 02/18/17 09:00 02/26/17 10:13 (Tylenol) 650 mg Q4H PRN PO 02/18/17 02:30 02/18/17 08:36 (Zofran Inj) 4 mg Q6H PRN IVP 02/18/17 02:30 (Narcan Inj) 0.4 mg UNSCH PRN IV 02/18/17 02:30 (D50w (Vial) Inj) 25 ml UNSCH PRN IV PUSH 02/18/17 02:30 (Glucagon Inj) 1 mg UNSCH PRN OTHER 02/18/17 02:30 (Xanax) 0.5 mg Q8H PRN PO 02/18/17 02:30 02/25/17 00:27 (Lioresal) 10 mg TID PRN PO 02/18/17 02:30 02/18/17 15:17 (Symbicort 160-4.5 Inh) 2 puff Q12HR INH 02/18/17 09:00 02/26/17 10:12 (Lanoxin) 0.125 mg DAILY PO 02/18/17 09:00 02/26/17 10:07 (Hydrodiuril) 25 mg DAILY PO 02/18/17 09:00 02/25/17 08:31 (Dilaudid Pf Inj) 0.5 mg Q4H PRN IV PUSH 02/18/17 16:00 (Percocet 10-325 Mg) 1 tab Q4H PRN PO 02/18/17 20:00 02/26/17 10:14 (Mucinex Er) 600 mg BID PO 02/18/17 21:00 02/26/17 10:08 (Fioricet 325-50-40) 1 tab Q8H PRN PO 02/19/17 09:15 02/25/17 00:27 (Bactroban Nasal 2% Oint) 1 applic BID EACH NARE 02/21/17 21:00 02/26/17 10:08 (Heparin Inj) 5,000 units Q8HR SQ 02/22/17 14:00 02/26/17 05:44 (Coumadin) 10 mg DAILY@1600 PO 02/25/17 16:00 02/25/17 16:07 (Cleocin) 450 mg Q6HR PO 02/25/17 18:00 02/26/17 05:44 (Reji Paez) Medical Decision Making MDM Remarks 1. 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 Right hemilaminectomy defect at the C1 level w/the right C1 arch and plates loose within the fluid collection Patient remains neurologically intact. Medicine feels patient is a low cardiac risk for any procedure Awaiting medical records from [facility] (Reji Paez ) Plan Plan Remarks Continue empiric IV antibiotics. Hold Coumadin. Pain management. Primary mgmt per Attending. It has been recommended to patient that he follow up with Dr Hernandez as previously scheduled. (Reji Paez) Attending Statement I have personally seen and examined the patient on the date of this note. Pertinent documentation and study results have been reviewed by the undersigned. I have personally developed the treatment plan and performed medical decision making. Agree with findings, exam, and treatment plan as noted above. Discussed at length with the patient today. The scalp looks somewhat more erythematous and scaling over the right occipital region compared to 02/23/17. However the scalp remains a little softer than when the patient was initially admitted. No definite rigidity. No changes in mental status or neurologic exam. Infectious disease notes reviewed. Agree the scalp looks a little more like a cellulitis on examination today. I again today requested that the record request from [facility] submitted on 02/23/17 be expedited. It is difficult to determine the best course of action not knowing the extent of the dural closure, particularly with potential increased risk of spreading infection into the CSF space with surgical intervention in the face of cellulitis. The shunt does not seem like a good option with active fever and potential scalp cellulitis. Perhaps the patient may need a temporary drain. I have again advised the patient that it would be best that this be taken care of by the operating surgeon, who is much more familiar with the extent of the dural resection and closure. We will try to contact Dr. Pacheco's office regarding possible transfer back to [facility]. (Jose De Jesus Perez MD) Reji Paez February 26, 2017 12:18 Jose De Jesus Perez MD February 26, 2017 19:49
[2017-02-26 12:25] LABS: AUTOMATED NEUTROPHIL # 3.2 TH/MM3 (1.8-7.7); BASOPHIL # 0.1 TH/MM3 (0-0.2); EOSINOPHIL # 0.1 TH/MM3 (0-0.4); EOSINOPHIL % 1.6 % (0.0-4.0); HEMATOCRIT 36.7 % (39.0-51.0); HEMO FLAGS DIFF FINAL; LYMPH % 23.3 % (9.0-44.0); LYMPHOCYTE # 1.2 TH/MM3 (1.0-4.8); MEAN CELL VOLUME 78.4 FL (80.0-100.0); MEAN CORPUSCULAR HEMOGLOBIN 25.7 PG (27.0-34.0); MEAN CORPUSCULAR HGB CONC 32.8 % (32.0-36.0); MONO % 12.1 % (0.0-8.0); PLATELET COUNT 172 TH/MM3 (150-450); RED BLOOD COUNT 4.68 MIL/MM3 (4.50-5.90); RED CELL DISTRIBUTION WIDTH 16.4 % (11.6-17.2); WHITE BLOOD COUNT 5.2 TH/MM3 (4.0-11.0)
--- NOTE | 2017-02-26 14:29 | HHI.PR ---
Subjective Remarks Follow-up for fever Had a temperature 100.1, right neck pain and swelling worsening. No nausea or vomiting. Has a cough, no shortness of breath, stable, no urinary symptoms, abdominal pain or diarrhea. Objective Vitals Vital Signs Date Time Temp Pulse Resp B/P Pulse Ox O2 Delivery O2 Flow Rate FiO2 02/26/17 11:52 98.4 83 16 104/69 97 02/26/17 08:45 94 Nasal Cannula 3.00 02/26/17 07:31 98.7 86 17 94/66 94 02/26/17 04:05 100.3 95 17 119/74 96 02/26/17 00:00 101.1 90 17 134/78 95 02/25/17 23:35 16 02/25/17 20:39 98 Nasal Cannula 3.00 02/25/17 20:00 97.3 76 16 94/54 95 02/25/17 16:00 97.7 81 18 98/52 94 I/O 02/25/17 02/25/17 02/25/17 02/26/17 02/26/17 02/26/17 07:00 15:00 23:00 07:00 15:00 23:00 Intake Total 960 ml 240 ml 240 ml Output Total 300 ml 400 ml Balance -300 ml 960 ml 240 ml -160 ml Intake Oral 960 ml 240 ml 240 ml Output Urine Total 300 ml 400 ml # Voids 5 0 # Bowel Movements 1 0 0 Result Diagram: 02/26/17 1200 02/25/171920 Objective Remarks GENERAL: Well-developed male patient, afebrile. SKIN: Focused skin assessment warm/dry. Patient has a 12 cm x 10 cm area of fluctuance with erythema and mild warmth, right posterior neck area. No active drainage. HEAD: Normocephalic. Atraumatic. EYES: No scleral icterus. No injection or drainage. NECK: Supple, trachea midline. No JVD or lymphadenopathy. CARDIOVASCULAR: Regular rate and rhythm without murmurs, gallops, or rubs. RESPIRATORY:Lungs with occasional wheezing. GASTROINTESTINAL: Abdomen soft, non-tender, nondistended. MUSCULOSKELETAL: No cyanosis, or edema. BACK: Nontender without obvious deformity. No CVA tenderness. Alert awake and oriented 3 A/P Assessment and Plan Possible infected seroma, versus Cellulitis and Abscess in the site of Drain post Meningioma removal from Brain stem-had a fever, on clindamycin, infectious disease following, vancomycin stat. Reconsult neurosurgery. Discussed with neurosurgery PA. Blood culture negative for now. With Diagnosis of Seroma and Pseudomeningocele along with Right suboccipital region extending to the Upper cervical region, Right Hemilaminectomy defect at the C1 level with the right C1 arch and Plates loose within the fluid collection not thought to be infectious process by Neurosurgery and also will need to follow with his Primary Neurosurgeon in [facility] continue sliding scale, controlled. COPD to continue Bronchodilator, Mucolytic and incentive spirometry Atrial fibrillation-continue digoxin, on Coumadin. INR subtherapeutic. Hold full anticoagulation in case need for surgery Hypertension-controlled, hold hydrochlorothiazide because of hyponatremia Hyponatremia-hold hydrochlorothiazide, start normal saline. Heparin for DVT prophylaxis Christine Castaneda MD February 26, 2017 14:29
[2017-02-26] MEDS: SODIUM CHLOR 0.9% 1000 ML INJ 1,000 ML IV SCH (14:30)
--- NOTE | 2017-02-26 17:11 | HHI.IDPN ---
Subjective Subjective Remarks 61-year-old gentleman with history of a right retromastoid approach for resection of meningioma done approximately [address] Cartagena at [facility]. Patient states that a few days after surgery he developed swelling around the surgical area. The swelling and pain has gotten progressively worse within the last few days reason why he came to the emergency department last night for evaluation. MRI of the cervical spine from 02/17/2017 showed evidence of the right occipital craniotomy and a deflated collection in the craniotomy defect and overlying the soft tissues and the right upper cervical region. The fluid collection is approximately 476 cm in size and does not clearly communicate with the CSF spaces. The CT of the cervical spine also shows right hemilaminectomy defect at the C1 level and the right C1 arch and plates are loose within the fluid collection. Patient denies any neurological deficits. Started on empiric vancomycin and clindamycin. Overnight events reviewed Fevers 101.1 F Headaches occ No N/V No diarrhea No neuro deficit. Antibiotics Vanco IV Clinda IV Lines Line sites with no e.o infection. Past Medical History reviewed. Allergies: Coded Allergies: Penicillin (Verified Allergy, Unknown, 02/17/17) *MDRO Multi-Drug Resistant Organism (Verified Adverse Reaction, Unknown, ) MRSA PCR Screen POSITIVE - 03/10/2016, 02/19/2017 MRSA (sputum) - 03/2016 Objective . Vital Signs Date Time Temp Pulse Resp B/P Pulse Ox O2 Delivery O2 Flow Rate FiO2 02/26/17 11:52 98.4 83 16 104/69 97 02/26/17 08:45 94 Nasal Cannula 3.00 02/26/17 07:31 98.7 86 17 94/66 94 02/26/17 04:05 100.3 95 17 119/74 96 02/26/17 00:00 101.1 90 17 134/78 95 02/25/17 23:35 16 02/25/17 20:39 98 Nasal Cannula 3.00 02/25/17 20:00 97.3 76 16 94/54 95 02/25/17 02/25/17 02/26/17 14:59 22:59 06:59 Intake Total 960 ml 240 ml 240 ml Output Total 400 ml Balance 960 ml 240 ml -160 ml Intake Oral 960 ml 240 ml 240 ml Output Urine Total 400 ml # Voids 5 0 # Bowel Movements 1 0 0 . Laboratory Tests Test 02/25/17 02/26/17 19:21 12:00 White Blood Count 5.9 TH/MM3 5.2 TH/MM3 Red Blood Count 5.02 MIL/MM3 4.68 MIL/MM3 Hemoglobin 12.9 GM/DL 12.0 GM/DL Hematocrit 39.3 % 36.7 % Mean Corpuscular Volume 78.3 FL 78.4 FL Mean Corpuscular Hemoglobin 25.6 PG 25.7 PG Mean Corpuscular Hemoglobin 32.7 % 32.8 % Concent Red Cell Distribution Width 16.0 % 16.4 % Platelet Count 201 TH/MM3 172 TH/MM3 Mean Platelet Volume 8.2 FL 8.1 FL Neutrophils (%) (Auto) 60.0 % 62.0 % Lymphocytes (%) (Auto) 25.9 % 23.3 % Monocytes (%) (Auto) 11.1 % 12.1 % Eosinophils (%) (Auto) 2.0 % 1.6 % Basophils (%) (Auto) 1.0 % 1.0 % Neutrophils # (Auto) 3.5 TH/MM3 3.2 TH/MM3 Lymphocytes # (Auto) 1.5 TH/MM3 1.2 TH/MM3 Monocytes # (Auto) 0.7 TH/MM3 0.6 TH/MM3 Eosinophils # (Auto) 0.1 TH/MM3 0.1 TH/MM3 Basophils # (Auto) 0.1 TH/MM3 0.1 TH/MM3 CBC Comment DIFF FINAL DIFF FINAL Differential Comment Laboratory Tests Test 02/24/17 02/25/17 02/25/17 19:51 04:33 19:21 C-Reactive Protein 0.67 MG/DL Sodium Level 127 MEQ/L 128 MEQ/L Potassium Level 3.8 MEQ/L 3.8 MEQ/L Chloride Level 90 MEQ/L 88 MEQ/L Carbon Dioxide Level 30.3 MEQ/L 32.4 MEQ/L Anion Gap 7 MEQ/L 8 MEQ/L Blood Urea Nitrogen 8 MG/DL 9 MG/DL Creatinine 0.88 MG/DL 1.01 MG/DL Estimat Glomerular Filtration 88 ML/MIN 75 ML/MIN Rate Random Glucose 150 MG/DL 115 MG/DL Calcium Level 9.7 MG/DL 9.7 MG/DL Phosphorus Level 2.2 MG/DL Magnesium Level 1.9 MG/DL Procalcitonin LESS THAN 0.05 ng/mL Total Bilirubin 0.3 MG/DL Aspartate Amino Transf 18 U/L (AST/SGOT) Alanine Aminotransferase 19 U/L (ALT/SGPT) Alkaline Phosphatase 59 U/L Total Protein 7.3 GM/DL Albumin 3.5 GM/DL Microbiology Date/Time Procedure Status Source Growth 02/26/17 09:55 Aerobic Blood Culture Received Blood Peripheral Pending 02/26/17 09:55 Anaerobic Blood Culture Received Blood Peripheral Pending 02/26/17 10:00 Aerobic Blood Culture Received Blood Peripheral Pending 02/26/17 10:00 Anaerobic Blood Culture Received Blood Peripheral Pending Imaging Last Impressions Neck CT 02/18/17 0000 Signed Impressions: Service Date/Time: Saturday, February 18, 2017 00:58 - CONCLUSION: 1. Right occipital craniotomy changes with an associated fluid collection as above, thought to most likely be a seroma. 2. The attempted fixation of the craniotomy bone fragment has failed. The bone fragment and 3 malleable plates are displaced into the fluid collection. There is a loose screw but the 3 plates appear attached to the craniotomy bone fragment by at least one screw each. Beau Valle MD Chest X-Ray 02/17/17 0000 Signed Impressions: Service Date/Time: Friday, February 17, 2017 21:07 - CONCLUSION: Slight bibasilar linear atelectasis. Noé Adams MD Cervical Spine MRI 02/17/17 0000 Signed Impressions: Service Date/Time: Friday, February 17, 2017 23:37 - CONCLUSION: 1. Limited, abbreviated study. Patient refused further imaging before axial images were obtained and before contrast could be given. 2. Postop right occipital craniotomy with a fairly large fluid collection in the craniotomy defect and overlying soft tissues that is nonspecific but most likely a seroma. No definite communication with the CSF spaces. Mild mass effect on the right side of the cerebellum. Other than interdigitated mildly between the posterior processes of C1 and C2, the fluid collection does not significantly impact the cervical spine. 3. Multilevel cervical spine degenerative changes as above. There are mild degrees of spinal stenosis without cord compression or cord signal abnormality and multiple levels of upper moderate foraminal stenosis. Please see above. Beau Valle MD Brain MRI 02/17/17 0000 Signed Impressions: Service Date/Time: Friday, February 17, 2017 23:37 - CONCLUSION: 1. Limited, abbreviated study. Please see above. 2. Right occipital craniotomy defect with a fluid collection, presumably a seroma. 3. No bleed or evidence of infarct. 4. Sinus disease. Beau Valle MD Physical Exam GENERAL: This is a well-nourished, well-developed patient, in no apparent distress. SKIN: No rashes, ecchymoses or lesions. Cool and dry. HEAD: Patient has a significant boggy swelling extends from the posterior auricular area down to the nape of his neck associated with erythema and a central lesion which looks like a pimple. Patient also has some erythematous extends into his rhodes area. Patient has extensive scaling of his entire scalp his rhodes area. EYES: Pupils equal round and reactive. Extraocular motions intact. No scleral icterus. No injection or drainage. ENT: Nose without bleeding, purulent drainage or septal hematoma. Throat without erythema, tonsillar hypertrophy or exudate. Uvula midline. Airway patent. NECK: Trachea midline. Supple, nontender, no meningeal signs. CARDIOVASCULAR: Regular rate and rhythm without murmurs, gallops, or rubs. RESPIRATORY: Clear to auscultation. Breath sounds equal bilaterally. No wheezes , rales, or rhonchi. GASTROINTESTINAL: Abdomen soft, non-tender, nondistended. MUSCULOSKELETAL: Extremities without clubbing, cyanosis, or edema. NEUROLOGICAL: Awake and alert. Grossly nonfocal Psych cooperative IV line sites with no evidence of infection. Assessment & Plan Remarks Possible infected seroma. Definitely looks like cellulitis on top of the skin over the seroma. Whether deeper seroma infection cannot be determined on clinical exam s/p meningioma resection at [facility]. COPD, atrial fibrillation on Coumadin, hepatitis C, seizures, traumatic brain injury, diabetes mellitus, hypertension, CHF Recs: Continue Clinda ok to change to oral. Will ya Bernstein on Sunday about the clinical findings of cellulitis on my exam. Patient reports improvement (reduction in swelling) since antibiotics started in addition to reduction in headache. CRP minimally elevated. Follow cultures Follow clinically. NOT ready for DC. Discussion with after he follows up. Patient refuses to follow up with the surgeon that performed surgery. Need Neurosurgery follow up locally. d/w . CXR negative. Yu Ivy MD February 26, 2017 17:11
[2017-02-26] MEDS: WARFARIN SOD 10 MG TAB PO SCH (17:26)
[2017-02-26] MEDS: ALPRAZolam 0.5 MG TAB PO PRN (17:26)
[2017-02-27] VITALS (11 sets, daily range): BP systolic 82–120; BP diastolic 45–70; PULSE 67–76; RESP 16–20; TEMP 96.2–96.9; O2SAT 94–99
[2017-02-27] MEDS: RESP: ALBUTEROL 2.5 MG/IPRATROPIUM 0.5 MG NEB (SCH) NEB ×6 (01:20→21:42)
[2017-02-27] MEDS: SODIUM CHLOR 0.9% 1000 ML INJ 1,000 ML IV SCH ×2 (02:25→14:20)
[2017-02-27] MEDS: ALPRAZolam 0.5 MG TAB PO PRN ×2 (03:00→10:43)
[2017-02-27] MEDS: oxyCODONE/ACETAMINOPHEN 10 MG/325 MG TAB PO PRN ×5 (03:00→22:11)
[2017-02-27] MEDS: CLINDAMYCIN 150 MG CAP PO SCH ×4 (06:30→23:57)
[2017-02-27] MEDS: HEPARIN SODIUM - SQ 10,000 UNITS/ML VIAL SQ SCH (06:30)
[2017-02-27] MEDS: INSULIN ASPART SUPPLEMENTAL SCALE SQ SCH ×4 (06:31→22:09)
[2017-02-27 07:21] LABS: PROTHROMBIN TIME - PATIENT 11.4 SEC (9.8-11.6)
[2017-02-27 07:44] LABS: BICARBONATE 32.6 MEQ/L (21.0-32.0); POTASSIUM 3.6 MEQ/L (3.5-5.1)
[2017-02-27] MEDS: MUPIROCIN 2% OINT 1 APPLIC/GM SYR EACH NARE SCH ×2 (09:00→22:12)
[2017-02-27] MEDS: DIGOXIN 0.125 MG TAB PO SCH (09:00)
[2017-02-27] MEDS: guaiFENesin E.R. 600 MG TAB PO SCH ×2 (09:00→22:11)
[2017-02-27] MEDS: BUDESONIDE-FORMOTEROL 160/4.5 MCG INHALER INH SCH ×2 (09:01→22:12)
[2017-02-27] MEDS: SODIUM CHLORIDE 0.9% FLUSH 10 ML FLUSH IV FLUSH SCH ×2 (09:02→22:12)
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
[2017-02-27] MEDS ORDERED: fentaNYL CITRATE 250 MCG/5 ML AMP ONE (14:36)
[2017-02-27] MEDS ORDERED: MIDAZOLAM HCL 5 MG/5 ML VIAL ONE (14:36)
[2017-02-27] MEDS ORDERED: VANCOMYCIN HCL 1000 MG VIAL ONE (15:10)
[2017-02-27] MEDS ORDERED: SODIUM CHLOR 0.9% 250 ML INJ 250 ML ONE (15:11)
--- NOTE | 2017-02-27 15:36 | PD.RAD ---
Post Procedure Progress Note Pre Procedure Diagnosis: (1) Seroma Post Procedure Diagnosis: (1) Seroma Procedure Date: February 27, 2017 Supervising Radiologist: Angel Dimas Proceduralist/Assist: Laquita Conte, RT(R)(), Zara Bates RT(R)() Anesthesia: Local, Analgesia, Conscious Sedation Plan of Activity Patient to Unit: [facility]U Patient Condition: Good See PACS Report for procedural detail/treatment Spinal Procedure Lumbar Drain L2-L3 Fluid Removal (CCs): 10 Fluid Description: Clear Puncture Time: 15:15 Central Venous Access Device Procedure 1 Right Peripheral Dialator Placement single lumen Eritrean: 4 Angel Dimas MD February 27, 2017 15:36
[2017-02-27] MEDS ORDERED: WARFARIN SOD 2 MG TAB PO SCH (16:00)
[2017-02-27 17:41] LABS: GROSS BLOOD TUBE #1 0 (0); GROSS BLOOD TUBE #2 0 (0); GROSS BLOOD TUBE #3 0 (0); SUPERNATE COLOR TUBE #1 CLEAR (CLEAR); SUPERNATE COLOR TUBE #2 CLEAR (CLEAR); SUPERNATE COLOR TUBE #3 CLEAR (CLEAR); VOLUME TUBE # 2 2.5 ML; VOLUME TUBE # 3 2.5 ML
[2017-02-27 17:42] LABS: CSF LYMPHOCYTES 75 %; CSF MONOCYTES 8 %; CSF NEUTROPHILS 17 %; GROSS BLOOD TUBE #4 0 (0); SUPERNATE COLOR TUBE #4 CLEAR (CLEAR); VOLUME TUBE # 4 2.5 ML; WBC TUBE #4 229 /MM3 (0-10)
--- NOTE | 2017-02-27 17:56 | HHI.NSPN ---
History Chief Complaint: headaches Interval History 61-year-old male underwent suboccipital-C1 procedure for meningioma at [facility]. Previously seen following surgery at [facility] emergency room for neurosurgery evaluation and referred back to [place] for one night with an aspiration of a postoperative seroma or pseudomeningocele. Now presents to [facility] with persistent seroma, mild cellulitis. Exam Results Vital Signs Date Time Temp Pulse Resp B/P Pulse Ox O2 Delivery O2 Flow Rate FiO2 02/27/17 16:25 68 20 92/57 98 02/27/17 15:40 96.7 02/27/17 09:45 Nasal Cannula 3.50 Intake and Output 02/26/17 02/26/17 02/27/17 08:00 16:00 00:00 Intake Total 240 ml 1080 ml 480 ml Output Total 400 ml Balance -160 ml 1080 ml 480 ml Physical Examination Gen.: No apparent distress. HEENT: No facial edema. Neck: Right neck-suboccipital fluid collection remains a little softer than at the time of admission. However there is now a approximately 4-5 mm very thin area of near wound dehiscence at the mid incision site, without drainage. Persistent mild to moderate erythema around the right neck and occipital scalp. No nuchal rigidity Neurologic: Awake and alert Oriented conversant Speech clear and appropriate Extraocular movements intact Facial motor symmetric Sensation intact by touch all extremities Strength normal all extremity major flexion and extension groups Lab, Micro, Other Results Laboratory Tests Test 02/27/17 02/27/17 06:15 15:17 Prothrombin Time 11.4 SEC Prothromb Time International 1.0 RATIO Ratio Sodium Level 129 MEQ/L Potassium Level 3.6 MEQ/L Chloride Level 90 MEQ/L Carbon Dioxide Level 32.6 MEQ/L Anion Gap 6 MEQ/L Blood Urea Nitrogen 9 MG/DL Creatinine 0.93 MG/DL Estimat Glomerular Filtration 82 ML/MIN Rate Random Glucose 147 MG/DL Calcium Level 10.1 MG/DL CSF Volume (Tube 1) 2.0 ML CSF Supernatant Color (tube 1) CLEAR CSF Gross Blood (Tube 1) 0 CSF Volume (Tube 2) 2.5 ML CSF Supernatant Color (tube 2) CLEAR CSF Gross Blood (Tube 2) 0 CSF Volume (Tube 3) 2.5 ML CSF Supernatant Color (tube 3) CLEAR CSF Gross Blood (Tube 3) 0 CSF Volume (Tube 4) 2.5 ML CSF Supernatant Color (tube 4) CLEAR CSF Gross Blood (Tube 4) 0 CSF WBC (Tube 4) 229 /MM3 CSF RBC (Tube 4) 48 /MM3 CSF Neutrophils 17 % CSF Lymphocytes 75 % CSF Monocytes 8 % CSF Glucose 60 MG/DL CSF Total Protein 193.5 MG/DL Medical Decision Making Impression and Plan Impression: 1. Prominent right occipital soft tissue fluid collection. There is a small area where the incision line is extremely thin, nearly an area of wound dehiscence. Plan: Discussed with patient. Discussed with Dr. Francois Due to the potential for total wound dehiscence, have recommended a temporary lumbar subarachnoid drain to divert the tension on the wound site and also obtain cultures. . This will also help determine the potential response with a ventriculoperitoneal shunt. Advised the patient that I would prefer not to proceed directly to a ventriculoperitoneal shunt due to the increased risk of infection, and I am uncertain regarding the extent of the dural resection and patch. We still do not have records from [place]. We contacted the operating surgeon's office today and were advised that the patient has no follow-up appointment. Jose De Jesus Perez MD February 27, 2017 17:56
[2017-02-28] VITALS (11 sets, daily range): BP systolic 85–125; BP diastolic 45–69; PULSE 68–90; RESP 18–20; TEMP 96.2–98.6; O2SAT 94–97
[2017-02-28] MEDS: RESP: ALBUTEROL 2.5 MG/IPRATROPIUM 0.5 MG NEB (SCH) NEB ×6 (01:02→21:29)
[2017-02-28] MEDS: SODIUM CHLOR 0.9% 1000 ML INJ 1,000 ML IV SCH ×2 (02:15→12:55)
[2017-02-28] MEDS: oxyCODONE/ACETAMINOPHEN 10 MG/325 MG TAB PO PRN ×5 (02:45→20:57)
[2017-02-28] MEDS: INSULIN ASPART SUPPLEMENTAL SCALE SQ SCH ×4 (06:10→20:57)
[2017-02-28] MEDS: CLINDAMYCIN 150 MG CAP PO SCH (06:11)
[2017-02-28] MEDS: SODIUM CHLORIDE 0.9% FLUSH 10 ML FLUSH IV FLUSH SCH ×2 (08:22→22:26)
[2017-02-28] MEDS: guaiFENesin E.R. 600 MG TAB PO SCH ×2 (08:22→20:57)
[2017-02-28] MEDS: DIGOXIN 0.125 MG TAB PO SCH (08:22)
--- NOTE | 2017-02-28 08:24 | RADRPT ---
EXAM DATE/TIME: 02/27/2017 14:12 [facility] COMPARISON: No previous studies available for comparison. INDICATIONS : Patient is in need of a lumbar drain with CSF aspiration due to post craniotomy seroma and swelling. MEDICAL HISTORY : History of cerebral cellulitis, CHF, AFIB, COPD, HTN, DM, traumatic brain injury, seizure disorder, h epatitis C, anemia. SURGIAL HISTORY : History of brain stem menangioma resection, hand surgery, cholecystectomy, tracheostomy. ENCOUNTER: Initial ACUITY: 2 months PAIN SCORE: 0/10 LUMBAR PUNCTURE TIME: 1515 hours FLUORO TIME: 2.4 minutes IMAGE SERIES: 3 LEVEL: Tip of lumbar drain was placed at T10 MEDICATION(S): 1.) 3 mg midazolam (Versed) IV 2.) 150 mcg fentanyl (Sublimaze) IV DEVICE(S): 1.) 5 Greek lumbar drain catheter PROCEDURE : 1. Fluoroscopically guided lumbar drain placement. 2. Conscious sedation with continuous EKG and oximetry monitoring. The risks, benefits and alternatives to the procedure were explained and verbal and written consent w as obtained. The site was prepped in sterile fashion. Full sterile technique was used, including ca p, mask, sterile gloves and gown and a large sterile sheet. Hand hygiene and 2% chlorhexidine and/or betadine/alcohol prep was utilized per protocol for cutaneous antisepsis. The skin and subcutaneous tissues were infiltrated with local anesthetic solution. With fluoroscopic guidance the lumbar thecal sac was punctured with a 14 gauge Touhy needle and a lum bar drain was placed with its tip at the level as described above and the catheter was sutured in shiva ce. CSF was identified returning from the catheter at the termination of the procedure. Conscious sedation was performed with the prescribed dosages and duration as above in the presence of an independent trained radiology nurse to assist in the monitoring of the patient. EKG and oximetry remained stable throughout the procedure. The patient tolerated the procedure well and there were n o complications. The patient was sent to post anesthesia recovery in stable condition. CONCLUSION: Uncomplicated lumbar drain placement as above. Angel Dimas MD on February 28, 2017 at 8:21 Board Certified Radiologist. This report was verified electronically.
[2017-02-28] MEDS: BUDESONIDE-FORMOTEROL 160/4.5 MCG INHALER INH SCH ×2 (08:25→20:59)
[2017-02-28] MEDS: MUPIROCIN 2% OINT 1 APPLIC/GM SYR EACH NARE SCH ×2 (08:25→20:57)
--- NOTE | 2017-02-28 08:25 | RADRPT ---
EXAM DATE/TIME: 02/27/2017 14:36 [facility] COMPARISON: No previous studies available for comparison. INDICATIONS : Patient is in need of a temporary peripheral access prior to procedure due to failed IV from floor. MEDICAL HISTORY : History of post craniotomy seroma, cellulitis, CHF, AFIB, COPD, HTN, DM, traumatic brain injury, seiz ure disorder, hepatitis C, anemia. SURGICAL HISTORY : History of brain stem menangioma resection, hand surgery, cholecystectomy, tracheostomy. ENCOUNTER: Initial ACUITY: 2 months PAIN SCORE: 0/10 IMAGE SERIES: 0 ACCESS: Right basilic vein DEVICE(S): 1.) 3/4 Norwegian Dilator PROCEDURE : 1. Ultrasound guided venous access. The risks, benefits and alternatives to the procedure were explained and verbal and written consent w as obtained. The site was prepped in sterile fashion. Full sterile technique was used, including ca p, mask, sterile gloves and gown and a large sterile sheet. Hand hygiene and 2% chlorhexidine and/or betadine/alcohol prep was utilized per protocol for cutaneous antisepsis. The skin and subcutaneous tissues were infiltrated with local anesthetic solution. With ultrasound guidance the prescribed vein was punctured for venous access. A 4 Norwegian dilator was placed and was flushed and locked with heparin. The patient tolerated procedure well and there were n o complications. CONCLUSION: Uncomplicated ultrasound guided venous access. Angel Dimas MD on February 28, 2017 at 8:22 Board Certified Radiologist. This report was verified electronically.
[2017-02-28 08:30] LABS: INTERNATIONAL NORMALIZED RATIO 1.1 RATIO
[2017-02-28 08:50] LABS: BICARBONATE 28.9 MEQ/L (21.0-32.0); POTASSIUM 4.1 MEQ/L (3.5-5.1)
[2017-02-28] MEDS ORDERED: Vancomycin Consult Pharmacy 1 EA OTHER SCH (10:15)
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
[2017-02-28] MEDS: VANCOMYCIN INJ 1,500 MG in SODIUM CHLORID 0.9% 500 ML INJ 500 ML IV SCH (12:51)
--- NOTE | 2017-02-28 13:02 | HHI.NSPN ---
(Reji Paez Saranya HERMAN) Note Status Status: Progress Note (Reji Paez) Interval History Interval History 02/18: 61-year-old gentleman with history of a right retromastoid approach for resection of meningioma done approximately [address] Cartagena at [facility]. Patient states that a few days after surgery he developed swelling around the surgical area. The swelling and pain has gotten progressively worse within the last few days reason why he came to the emergency department last night for evaluation. MRI of the cervical spine from 02/17/2017 showed evidence of the right occipital craniotomy and a deflated collection in the craniotomy defect and overlying the soft tissues and the right upper cervical region. The fluid collection is approximately 476 cm in size and does not clearly communicate with the CSF spaces. The CT of the cervical spine also shows right hemilaminectomy defect at the C1 level and the right C1 arch and plates are loose within the fluid collection. Patient denies any neurological deficits. Started on empiric vancomycin and clindamycin. 02/19: Patient is awake & alert when seen this afternoon. He complains of neck pain, headache and numbness to the swelling on the right side of his head & neck. The patient does live in the [place] area but also stated "I don't want to deal with that samuel no more and he don't want to see me either." 02/20: Patient is doing well. He still complains of neck pain, headache with numbness above the swelling to the right side of the head & neck. 02/21: Patient continues to do well. He continues to have pain to the neck & back of the head with some numbness. He is currently on contact precautions due to a positive MRSA PCR per Nursing. 02/22: This morning the patient states he is doing well. He does have a headache that started last night. He continues to be on contact isolation. 02/24: Neuro stable overnight, continue to have pain and tenderness to the swollen site 02/25: no changes to surgical site but overall feeling a better. ID consulted yesterday noted. 02/26: Patient awake & alert, states he is doing "okay" today. Still with headache and pain to the back of the head. He endorsed some nausea earlier but none at present. A CXR this morning was unremarkable. He spiked a temp of 101.1 at midnight. A CBC was just drawn when the patient was seen. 02/27: Patient went for lumbar subarachnoid drain placement 02/28: Patient doing well this afternoon when seen. He finished a neb treatment just before being seen. He has pain to the back where the lumbar drain was inserted. He did say the right occipital swelling was better. (Reji Paez) Labs, Micro, & Vital Signs Results Allergies Coded Allergies Type Severity Reaction Last Updated Verified Penicillin Allergy Unknown 02/17/17 Yes *MDRO Multi-Drug Resistant Organism Adverse Reaction Unknown 02/19/17 Yes Recent Impressions Lumbar Puncture Fluoroscopy 02/27/17 1400 Signed Impressions: Service Date/Time: Monday, February 27, 2017 14:12 - CONCLUSION: Uncomplicated lumbar drain placement as above. Angel Dimas MD [facility] [place] 02/27/17 0000 Signed Impressions: Service Date/Time: Monday, February 27, 2017 14:36 - CONCLUSION: Uncomplicated ultrasound guided venous access. Angel Dimas MD Chest X-Ray 02/26/17 0000 Signed Impressions: Service Date/Time: Sunday, February 26, 2017 09:33 - CONCLUSION: No acute disease. Javon Baledras MD // 06:00 18:00 06:00 18:00 06:00 18:00 Intake Total 240 ml 1320 ml 960 ml 905 ml Output Total 400 ml 370 ml 720 ml Balance 240 ml 920 ml 960 ml -370 ml 185 ml Intake Oral 240 ml 1320 ml 960 ml IV Total 905 ml Output Urine Total 400 ml 250 ml 650 ml Drainage Total 120 ml 70 ml # Voids 0 3 6 # Bowel Movements 0 0 0 0 0 Laboratory Tests Test 02/25/17 02/26/17 02/26/17 02/27/17 19:21 05:34 12:00 06:15 White Blood Count 5.9 TH/MM3 5.2 TH/MM3 Red Blood Count 5.02 MIL/MM3 4.68 MIL/MM3 Hemoglobin 12.9 GM/DL 12.0 GM/DL Hematocrit 39.3 % 36.7 % Mean Corpuscular Volume 78.3 FL 78.4 FL Mean Corpuscular Hemoglobin 25.6 PG 25.7 PG Mean Corpuscular Hemoglobin 32.7 % 32.8 % Concent Red Cell Distribution Width 16.0 % 16.4 % Platelet Count 201 TH/MM3 172 TH/MM3 Mean Platelet Volume 8.2 FL 8.1 FL Neutrophils (%) (Auto) 60.0 % 62.0 % Lymphocytes (%) (Auto) 25.9 % 23.3 % Monocytes (%) (Auto) 11.1 % 12.1 % Eosinophils (%) (Auto) 2.0 % 1.6 % Basophils (%) (Auto) 1.0 % 1.0 % Neutrophils # (Auto) 3.5 TH/MM3 3.2 TH/MM3 Lymphocytes # (Auto) 1.5 TH/MM3 1.2 TH/MM3 Monocytes # (Auto) 0.7 TH/MM3 0.6 TH/MM3 Eosinophils # (Auto) 0.1 TH/MM3 0.1 TH/MM3 Basophils # (Auto) 0.1 TH/MM3 0.1 TH/MM3 CBC Comment DIFF FINAL DIFF FINAL Differential Comment Sodium Level 128 MEQ/L 129 MEQ/L Potassium Level 3.8 MEQ/L 3.6 MEQ/L Chloride Level 88 MEQ/L 90 MEQ/L Carbon Dioxide Level 32.4 MEQ/L 32.6 MEQ/L Anion Gap 8 MEQ/L 6 MEQ/L Blood Urea Nitrogen 9 MG/DL 9 MG/DL Creatinine 1.01 MG/DL 0.93 MG/DL Estimat Glomerular Filtration 75 ML/MIN 82 ML/MIN Rate Random Glucose 115 MG/DL 147 MG/DL Calcium Level 9.7 MG/DL 10.1 MG/DL Total Bilirubin 0.3 MG/DL Aspartate Amino Transf 18 U/L (AST/SGOT) Alanine Aminotransferase 19 U/L (ALT/SGPT) Alkaline Phosphatase 59 U/L Total Protein 7.3 GM/DL Albumin 3.5 GM/DL Prothrombin Time 11.4 SEC 11.4 SEC Prothromb Time International 1.0 RATIO 1.0 RATIO Ratio Test 02/27/17 02/28/17 15:17 07:32 CSF Volume (Tube 1) 2.0 ML CSF Supernatant Color (tube 1) CLEAR CSF Gross Blood (Tube 1) 0 CSF Volume (Tube 2) 2.5 ML CSF Supernatant Color (tube 2) CLEAR CSF Gross Blood (Tube 2) 0 CSF Volume (Tube 3) 2.5 ML CSF Supernatant Color (tube 3) CLEAR CSF Gross Blood (Tube 3) 0 CSF Volume (Tube 4) 2.5 ML CSF Supernatant Color (tube 4) CLEAR CSF Gross Blood (Tube 4) 0 CSF WBC (Tube 4) 229 /MM3 CSF RBC (Tube 4) 48 /MM3 CSF Neutrophils 17 % CSF Lymphocytes 75 % CSF Monocytes 8 % CSF Glucose 60 MG/DL CSF Total Protein 193.5 MG/DL Prothrombin Time 12.0 SEC Prothromb Time International 1.1 RATIO Ratio Sodium Level 134 MEQ/L Potassium Level 4.1 MEQ/L Chloride Level 98 MEQ/L Carbon Dioxide Level 28.9 MEQ/L Anion Gap 7 MEQ/L Blood Urea Nitrogen 6 MG/DL Creatinine 0.82 MG/DL Estimat Glomerular Filtration 95 ML/MIN Rate Random Glucose 127 MG/DL Calcium Level 9.6 MG/DL Constitutional Vital Signs Date Time Temp Pulse Resp B/P Pulse Ox O2 Delivery O2 Flow Rate FiO2 02/28/17 12:35 96.7 90 18 111/61 95 02/28/17 10:01 95 Nasal Cannula 2.00 Humidified 02/28/17 09:00 97.9 80 20 125/69 95 02/28/17 08:49 94 Nasal Cannula 4.00 02/28/17 06:41 78 18 115/56 97 02/28/17 06:12 98.2 71 18 85/45 96 02/28/17 04:14 18 02/28/17 04:04 94 Nasal Cannula 3.00 02/28/17 01:35 99 Nasal Cannula 2.00 Humidified 02/28/17 01:03 97 Nasal Cannula 3.00 02/28/17 00:00 98.6 68 18 106/69 97 02/27/17 21:45 96 Nasal Cannula 3.00 02/27/17 20:00 96.9 73 18 82/45 96 02/27/17 18:30 98 Nasal Cannula 2.00 Humidified 02/27/17 18:05 96.6 76 20 99/56 98 02/27/17 16:25 68 20 92/57 98 02/27/17 15:55 67 18 92/62 99 02/27/17 15:40 96.7 70 18 93/67 97 02/27/17 12:53 96.2 76 16 87/59 95 02/28/17 07:00 Intake Total 905 ml Output Total 1040 ml Balance -135 ml (Reji Paez) Review of Systems/Exam ROS Constitutional: He denies any fever or chills. HEENT: He states that the swelling and pain to the right side of the head and neck are better. Neck: He states that the swelling and pain to the right side of the head and neck are better. Respiratory: He has had some shortness of breath. He denies productive cough. Cardiac: He denies any chest pain, palpitations or irregular heart beat. GI: He denies any abdominal pain, nausea, vomiting or bowel incontinence. : He denies any bladder incontinence. Back: He has back pain at the drain insertion site. Extremities: He denies any arm or leg pain or weakness. Neuro: The only numbness he has is to the upper scalp at the top of the swelling which is better. He denies any headache. He denies any numbness, tingling or weakness to the extremities. Exam General: Well developed, well nourished male who appears his stated age, NAD. HEENT/Neck: Right neck-suboccipital fluid collection fluctuant, mildly tender. However there is now a approximately 4-5 mm very thin area of near wound dehiscence at the mid incision site, without drainage. Persistent mild to moderate erythema around the right neck and occipital scalp. No nuchal rigidity. His head & neck are rotated down toward the left shoulder. No JVD, trachea midline. Respiratory: CTAB w/o W/R/R, equal excursion, non-laboured, on NC, just finished neb tx prior to being seen. CV: S1S2 w/RRR w/o M/G/R, radial & pedal pulses 2+ bilaterally, cap refill < 2 sec. GI: Abdomen soft, nontender, obese, positive bowel sounds. Extremities: BLEVINS, no evident deformity, discolouration or clubbing. Back: TTP at lumbar subarachnoid drain insertion site, no evident drainage, erythema or streaking. Drain to gravity drainage with clear straw-coloured drainage. Neuro: AAOx3. Speech clear & appropriate. Follows commands. Sensation grossly intact to light touch to the extremities. Motor strength 5/5 to LUE & BLE and 4+ /5 to RUE. (Reji Paez) Medications Current Medications Current Medications Medications (Trade) Dose Ordered Sig/Umu Route Start Time Stop Time Status Last Admin (NS Flush) 2 ml UNSCH PRN IV FLUSH 02/18/17 02:30 (NS Flush) 2 ml BID IV FLUSH 02/18/17 09:00 02/27/17 22:12 (Tylenol) 650 mg Q4H PRN PO 02/18/17 02:30 02/18/17 08:36 (Zofran Inj) 4 mg Q6H PRN IVP 02/18/17 02:30 (Narcan Inj) 0.4 mg UNSCH PRN IV 02/18/17 02:30 (D50w (Vial) Inj) 25 ml UNSCH PRN IV PUSH 02/18/17 02:30 (Glucagon Inj) 1 mg UNSCH PRN OTHER 02/18/17 02:30 (Xanax) 0.5 mg Q8H PRN PO 02/18/17 02:30 02/27/17 10:43 (Lioresal) 10 mg TID PRN PO 02/18/17 02:30 02/18/17 15:17 (Symbicort 160-4.5 Inh) 2 puff Q12HR INH 02/18/17 09:00 02/28/17 08:25 (Lanoxin) 0.125 mg DAILY PO 02/18/17 09:00 02/28/17 08:22 (Dilaudid Pf Inj) 0.5 mg Q4H PRN IV PUSH 02/18/17 16:00 (Percocet 10-325 Mg) 1 tab Q4H PRN PO 02/18/17 20:00 02/28/17 08:32 (Mucinex Er) 600 mg BID PO 02/18/17 21:00 02/28/17 08:22 (Fioricet 325-50-40) 1 tab Q8H PRN PO 02/19/17 09:15 02/25/17 00:27 Mupirocin 1 applic 1 applic BID EACH NARE 02/21/17 21:00 02/28/17 08:25 Sodium Chloride 1,000 ml @ 84 mls/hr [id number] IV 02/26/17 14:30 02/27/17 14:20 Pharmacy Profile Note 0 ml @ 0 mls/hr UNSCH OTHER 02/26/17 14:30 Pharmacy Profile Note 0 ml @ 0 mls/hr UNSCH OTHER 02/28/17 10:15 (Vancomycin Inj/ NS 500 ml Inj) 515 ml @ 250 mls/hr Q12H IV 02/28/17 13:00 Miscellaneous Information SPECIFIC LAB TO BE DRAWN:VANCOMYCIN TROUGH DATE TO... ONCE ONCE .XX 03/02/17 00:45 03/02/17 00:46 (Reji Paez) Medical Decision Making MDM Remarks 1. Prominent right occipital soft tissue fluid collection. There is a small area where the incision line is extremely thin, nearly an area of wound dehiscence. 2. Right hemilaminectomy defect at the C1 level w/the right C1 arch and plates loose within the fluid collection Patient remains neurologically intact. Medicine feels patient is a low cardiac risk for any procedure Elevated WBC, RBC & protein in CSF Hyponatremia, improved (Reji Paez) Plan Plan Remarks Continue empiric IV antibiotics. Hold Coumadin. Pain management. Primary mgmt per Attending. It has been recommended to patient that he follow up with Dr Hernandez as previously scheduled. (Reji Paez) Attending Statement I have personally seen and examined the patient on the date of this note. Pertinent documentation and study results have been reviewed by the undersigned. I have personally developed the treatment plan and performed medical decision making. Agree with findings, exam, and treatment plan as noted above. Occipital-neck fluid collection feel softer today. No wound dehiscence. No drainage from incision. CSF results noted. Possible partially treated meningitis. Infectious disease notes reviewed No evidence of abscess formation on MRI. The C1 lamina fragment and screws appear to be loose within the seroma cavity, but no definite evidence of osteomyelitis on MRI. Continue antibiotics per infectious disease Plan to continue subarachnoid drain for approximately 7 days depending on clinical course. Wound healing on a long-term basis may continue to be problematic despite initial subarachnoid drain placement. He may still require a ventriculoperitoneal shunt and/or a revision of the surgical site. Still awaiting operative report and other information from [facility] (Jose De Jesus Perez MD) Reji Paez February 28, 2017 13:02 Jose De Jesus Perez MD February 28, 2017 21:59
--- NOTE | 2017-02-28 15:09 | OTSOAPIP ---
TIME SESSION COMPLETED: 1430 TREATMENT TIME: 0 MINS. CHART REVIEWED. PATIENT WAS EDUCATED ON OCCUPATIONAL THERAPY SERVICES. PATIENT REFUSED STATING THAT HE DOES NOT WANT ANY THERAPY; HE JUST WANTS TO GO HOME. NO TREATMENT RENDERED PER PATIENTS REQUEST PLAN: WILL TRY AGAIN NEXT TREATMENT IF PATIENT CONTINUE TO REFUSE OCCUPATIONAL THERAPY TO SIGN OFF. INTERDISCIPLINARY COMMUNICATION: CHARGE NURSE "ORACIO" AND HOSE COUPLING JOINER WAS INFORMED. Therapist: FLO KAUR OTR/Aden Signature on file
--- NOTE | 2017-02-28 15:31 | HHI.IDPN ---
Subjective Subjective Remarks 61-year-old gentleman with history of a right retromastoid approach for resection of meningioma done approximately [address] Cartagena at [facility]. Patient states that a few days after surgery he developed swelling around the surgical area. The swelling and pain has gotten progressively worse within the last few days reason why he came to the emergency department last night for evaluation. MRI of the cervical spine from 02/17/2017 showed evidence of the right occipital craniotomy and a deflated collection in the craniotomy defect and overlying the soft tissues and the right upper cervical region. The fluid collection is approximately 476 cm in size and does not clearly communicate with the CSF spaces. The CT of the cervical spine also shows right hemilaminectomy defect at the C1 level and the right C1 arch and plates are loose within the fluid collection. Patient denies any neurological deficits. Started on empiric vancomycin and clindamycin. Overnight events reviewed No fevers overnight Reports he had an LP and drain placed. CSF studies abnormal with elevated WBC and total protein (partially treated with IV and oral antibiotics at this time) Headaches resolved since LP. reports swelling decreased in size since LP and drain. No N/V No diarrhea No neuro deficit. Antibiotics Vanco IV Clinda IV Lines Line sites with no e.o infection. Past Medical History reviewed. Allergies: Coded Allergies: Penicillin (Verified Allergy, Unknown, 02/17/17) *MDRO Multi-Drug Resistant Organism (Verified Adverse Reaction, Unknown, ) MRSA PCR Screen POSITIVE - 03/10/2016, 02/19/2017 MRSA (sputum) - 03/2016 Objective . Vital Signs Date Time Temp Pulse Resp B/P Pulse Ox O2 Delivery O2 Flow Rate FiO2 02/28/17 12:35 96.7 90 18 111/61 95 02/28/17 10:01 95 Nasal Cannula 2.00 Humidified 02/28/17 09:00 97.9 80 20 125/69 95 02/28/17 08:49 94 Nasal Cannula 4.00 02/28/17 06:41 78 18 115/56 97 02/28/17 06:12 98.2 71 18 85/45 96 02/28/17 04:14 18 02/28/17 04:04 94 Nasal Cannula 3.00 02/28/17 01:35 99 Nasal Cannula 2.00 Humidified 02/28/17 01:03 97 Nasal Cannula 3.00 02/28/17 00:00 98.6 68 18 106/69 97 02/27/17 21:45 96 Nasal Cannula 3.00 02/27/17 20:00 96.9 73 18 82/45 96 02/27/17 18:30 98 Nasal Cannula 2.00 Humidified 02/27/17 18:05 96.6 76 20 99/56 98 02/27/17 16:25 68 20 92/57 98 02/27/17 15:55 67 18 92/62 99 02/27/17 15:40 96.7 70 18 93/67 97 02/27/17 02/27/17 02/28/17 15:00 23:00 07:00 Intake Total 905 ml Output Total 310 ml 730 ml Balance -310 ml 175 ml IV Total 905 ml Output Urine Total 250 ml 650 ml Drainage Total 60 ml 80 ml # Bowel Movements 0 0 . Laboratory Tests Test 02/27/17 02/28/17 06:15 07:32 Sodium Level 129 MEQ/L 134 MEQ/L Potassium Level 3.6 MEQ/L 4.1 MEQ/L Chloride Level 90 MEQ/L 98 MEQ/L Carbon Dioxide Level 32.6 MEQ/L 28.9 MEQ/L Anion Gap 6 MEQ/L 7 MEQ/L Blood Urea Nitrogen 9 MG/DL 6 MG/DL Creatinine 0.93 MG/DL 0.82 MG/DL Estimat Glomerular Filtration 82 ML/MIN 95 ML/MIN Rate Random Glucose 147 MG/DL 127 MG/DL Calcium Level 10.1 MG/DL 9.6 MG/DL Microbiology Date/Time Procedure Status Source Growth 02/26/17 09:55 Aerobic Blood Culture - Preliminary Resulted Blood Peripheral NO GROWTH IN 2 DAYS 02/26/17 09:55 Anaerobic Blood Culture - Preliminary Resulted Blood Peripheral NO GROWTH IN 2 DAYS 02/26/17 10:00 Aerobic Blood Culture - Preliminary Resulted Blood Peripheral NO GROWTH IN 2 DAYS 02/26/17 10:00 Anaerobic Blood Culture - Preliminary Resulted Blood Peripheral NO GROWTH IN 2 DAYS 02/27/17 15:17 Gram Stain - Final Resulted Cerebral Spinal Fluid Lumbar Puncture 02/27/17 15:17 CSF Culture - Preliminary Resulted Cerebral Spinal Fluid Lumbar Puncture NO GROWTH IN 24 HOURS. 02/27/17 15:17 Acid Fast Stain Received Cerebral Spinal Fluid Lumbar Puncture Pending 02/27/17 15:17 Mycobacterial Culture Received Cerebral Spinal Fluid Lumbar Puncture Pending 02/27/17 15:17 Fungal Smear - Final Resulted Cerebral Spinal Fluid Lumbar Puncture NO FUNGAL ELEMENTS SEEN. 02/27/17 15:17 Fungal Culture Resulted Cerebral Spinal Fluid Lumbar Puncture Pending Imaging Last Impressions Neck CT 02/18/17 0000 Signed Impressions: Service Date/Time: Saturday, February 18, 2017 00:58 - CONCLUSION: 1. Right occipital craniotomy changes with an associated fluid collection as above, thought to most likely be a seroma. 2. The attempted fixation of the craniotomy bone fragment has failed. The bone fragment and 3 malleable plates are displaced into the fluid collection. There is a loose screw but the 3 plates appear attached to the craniotomy bone fragment by at least one screw each. Beau Valle MD Chest X-Ray 02/17/17 0000 Signed Impressions: Service Date/Time: Friday, February 17, 2017 21:07 - CONCLUSION: Slight bibasilar linear atelectasis. Noé Adams MD Cervical Spine MRI 02/17/17 0000 Signed Impressions: Service Date/Time: Friday, February 17, 2017 23:37 - CONCLUSION: 1. Limited, abbreviated study. Patient refused further imaging before axial images were obtained and before contrast could be given. 2. Postop right occipital craniotomy with a fairly large fluid collection in the craniotomy defect and overlying soft tissues that is nonspecific but most likely a seroma. No definite communication with the CSF spaces. Mild mass effect on the right side of the cerebellum. Other than interdigitated mildly between the posterior processes of C1 and C2, the fluid collection does not significantly impact the cervical spine. 3. Multilevel cervical spine degenerative changes as above. There are mild degrees of spinal stenosis without cord compression or cord signal abnormality and multiple levels of upper moderate foraminal stenosis. Please see above. Beau aVlle MD Brain MRI 02/17/17 0000 Signed Impressions: Service Date/Time: Friday, February 17, 2017 23:37 - CONCLUSION: 1. Limited, abbreviated study. Please see above. 2. Right occipital craniotomy defect with a fluid collection, presumably a seroma. 3. No bleed or evidence of infarct. 4. Sinus disease. Beau Valle MD Physical Exam GENERAL: This is a well-nourished, well-developed patient, in no apparent distress. SKIN: No rashes, ecchymoses or lesions. Cool and dry. HEAD: Patient has a significant boggy swelling extends from the posterior auricular area down to the nape of his neck associated with erythema but much smaller and improved size since initial exam. EYES: Pupils equal round and reactive. Extraocular motions intact. No scleral icterus. No injection or drainage. ENT: Nose without bleeding, purulent drainage or septal hematoma. Throat without erythema, tonsillar hypertrophy or exudate. Uvula midline. Airway patent. NECK: Trachea midline. Supple, nontender, no meningeal signs. CARDIOVASCULAR: Regular rate and rhythm without murmurs, gallops, or rubs. RESPIRATORY: Clear to auscultation. Breath sounds equal bilaterally. No wheezes , rales, or rhonchi. GASTROINTESTINAL: Abdomen soft, non-tender, nondistended. MUSCULOSKELETAL: Extremities without clubbing, cyanosis, or edema. NEUROLOGICAL: Awake and alert. Grossly nonfocal Psych cooperative IV line sites with no evidence of infection. Assessment & Plan Remarks Possible infected seroma. Definitely looks like cellulitis on top of the skin over the seroma. Abnormal LP consistent with partially treated meningitis at this point. ? Anatomy details not known. Will dw if discitis or epidural abscess. s/p meningioma resection at [facility]. COPD, atrial fibrillation on Coumadin, hepatitis C, seizures, traumatic brain injury, diabetes mellitus, hypertension, CHF Recs: DC Clinda Start Vanco IV (target 15-20) for meningitis. Follow cultures Follow clinically. Left message for 2 questions: 1. how long drain anticipated to be left in place. 2. Should we be concerned about discitis and treat as osteomyelitis of spine for 6 weeks or meningitis with 2 weeks. d/w Dr.Estrella Villalobos Case management: will need IV antibiotics on discharge, length and type to be determined. see discussion above. Patient very thankful of care provided. Yu Ivy MD February 28, 2017 15:30
[2017-02-28] MEDS: ALPRAZolam 0.5 MG TAB PO PRN (23:45)
[2017-03-01] VITALS (10 sets, daily range): BP systolic 93–111; BP diastolic 54–65; PULSE 70–80; RESP 18–20; TEMP 97–97.5; O2SAT 90–98
[2017-03-01] MEDS: VANCOMYCIN INJ 1,500 MG in SODIUM CHLORID 0.9% 500 ML INJ 500 ML IV SCH ×2 (00:08→12:33)
[2017-03-01] MEDS: RESP: ALBUTEROL 2.5 MG/IPRATROPIUM 0.5 MG NEB (SCH) NEB ×6 (01:23→19:43)
[2017-03-01] MEDS: SODIUM CHLOR 0.9% 1000 ML INJ 1,000 ML IV SCH ×2 (02:05→14:00)
[2017-03-01] MEDS: oxyCODONE/ACETAMINOPHEN 10 MG/325 MG TAB PO PRN ×5 (04:21→20:38)
[2017-03-01] MEDS: INSULIN ASPART SUPPLEMENTAL SCALE SQ SCH ×4 (07:00→20:37)
[2017-03-01 07:33] LABS: PROTHROMBIN TIME - PATIENT 11.1 SEC (9.8-11.6)
[2017-03-01] MEDS: SODIUM CHLORIDE 0.9% FLUSH 10 ML FLUSH IV FLUSH SCH ×2 (07:56→21:00)
[2017-03-01] MEDS: BUDESONIDE-FORMOTEROL 160/4.5 MCG INHALER INH SCH ×2 (07:56→20:37)
[2017-03-01] MEDS: DIGOXIN 0.125 MG TAB PO SCH (07:56)
[2017-03-01] MEDS: MUPIROCIN 2% OINT 1 APPLIC/GM SYR EACH NARE SCH ×2 (07:56→20:36)
[2017-03-01] MEDS: guaiFENesin E.R. 600 MG TAB PO SCH ×2 (07:56→20:36)
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
--- NOTE | 2017-03-01 10:53 | HHI.NSPN ---
(Reji Paez Saranya HERMAN) Note Status Status: Progress Note (Reji Paez) Interval History Interval History 02/18: 61-year-old gentleman with history of a right retromastoid approach for resection of meningioma done approximately [address] Cartagena at [facility]. Patient states that a few days after surgery he developed swelling around the surgical area. The swelling and pain has gotten progressively worse within the last few days reason why he came to the emergency department last night for evaluation. MRI of the cervical spine from 02/17/2017 showed evidence of the right occipital craniotomy and a deflated collection in the craniotomy defect and overlying the soft tissues and the right upper cervical region. The fluid collection is approximately 476 cm in size and does not clearly communicate with the CSF spaces. The CT of the cervical spine also shows right hemilaminectomy defect at the C1 level and the right C1 arch and plates are loose within the fluid collection. Patient denies any neurological deficits. Started on empiric vancomycin and clindamycin. 02/19: Patient is awake & alert when seen this afternoon. He complains of neck pain, headache and numbness to the swelling on the right side of his head & neck. The patient does live in the [place] area but also stated "I don't want to deal with that samuel no more and he don't want to see me either." 02/20: Patient is doing well. He still complains of neck pain, headache with numbness above the swelling to the right side of the head & neck. 02/21: Patient continues to do well. He continues to have pain to the neck & back of the head with some numbness. He is currently on contact precautions due to a positive MRSA PCR per Nursing. 02/22: This morning the patient states he is doing well. He does have a headache that started last night. He continues to be on contact isolation. 02/24: Neuro stable overnight, continue to have pain and tenderness to the swollen site 02/25: no changes to surgical site but overall feeling a better. ID consulted yesterday noted. 02/26: Patient awake & alert, states he is doing "okay" today. Still with headache and pain to the back of the head. He endorsed some nausea earlier but none at present. A CXR this morning was unremarkable. He spiked a temp of 101.1 at midnight. A CBC was just drawn when the patient was seen. 02/27: Patient went for lumbar subarachnoid drain placement 02/28: Patient doing well this afternoon when seen. He finished a neb treatment just before being seen. He has pain to the back where the lumbar drain was inserted. He did say the right occipital swelling was better. 03/01: Patient states he is doing good this morning. He reports having an intermittent headache that is not bad. Today he has no complaint of the back pain at the drain insertion site. Infectious Disease adjusted his abx yesterday based upon the CSF analysis. (Reji Paez) Labs, Micro, & Vital Signs Results Allergies Coded Allergies Type Severity Reaction Last Updated Verified Penicillin Allergy Unknown 02/17/17 Yes *MDRO Multi-Drug Resistant Organism Adverse Reaction Unknown 02/19/17 Yes Recent Impressions Lumbar Puncture Fluoroscopy 02/27/17 1400 Signed Impressions: Service Date/Time: Monday, February 27, 2017 14:12 - CONCLUSION: Uncomplicated lumbar drain placement as above. Angel Dimas MD [facility] [place] Interventional Procedure 02/27/17 0000 Signed Impressions: Service Date/Time: Monday, February 27, 2017 14:36 - CONCLUSION: Uncomplicated ultrasound guided venous access. Angel Dimas MD // 06:00 18:00 06:00 18:00 06:00 18:00 Intake Total 960 ml 905 ml 720 ml Output Total 370 ml 755 ml 100 ml 470 ml Balance 960 ml -370 ml 150 ml 620 ml -470 ml Intake Oral 960 ml 720 ml IV Total 905 ml Output Urine Total 250 ml 650 ml 450 ml Drainage Total 120 ml 105 ml 100 ml 20 ml # Voids 6 2 # Bowel Movements 0 0 0 1 0 Laboratory Tests Test 02/26/17 02/27/17 02/27/17 02/28/17 12:00 06:15 15:17 07:32 White Blood Count 5.2 TH/MM3 Red Blood Count 4.68 MIL/MM3 Hemoglobin 12.0 GM/DL Hematocrit 36.7 % Mean Corpuscular Volume 78.4 FL Mean Corpuscular Hemoglobin 25.7 PG Mean Corpuscular Hemoglobin 32.8 % Concent Red Cell Distribution Width 16.4 % Platelet Count 172 TH/MM3 Mean Platelet Volume 8.1 FL Neutrophils (%) (Auto) 62.0 % Lymphocytes (%) (Auto) 23.3 % Monocytes (%) (Auto) 12.1 % Eosinophils (%) (Auto) 1.6 % Basophils (%) (Auto) 1.0 % Neutrophils # (Auto) 3.2 TH/MM3 Lymphocytes # (Auto) 1.2 TH/MM3 Monocytes # (Auto) 0.6 TH/MM3 Eosinophils # (Auto) 0.1 TH/MM3 Basophils # (Auto) 0.1 TH/MM3 CBC Comment DIFF FINAL Differential Comment Prothrombin Time 11.4 SEC 12.0 SEC Prothromb Time International 1.0 RATIO 1.1 RATIO Ratio Sodium Level 129 MEQ/L 134 MEQ/L Potassium Level 3.6 MEQ/L 4.1 MEQ/L Chloride Level 90 MEQ/L 98 MEQ/L Carbon Dioxide Level 32.6 MEQ/L 28.9 MEQ/L Anion Gap 6 MEQ/L 7 MEQ/L Blood Urea Nitrogen 9 MG/DL 6 MG/DL Creatinine 0.93 MG/DL 0.82 MG/DL Estimat Glomerular Filtration 82 ML/MIN 95 ML/MIN Rate Random Glucose 147 MG/DL 127 MG/DL Calcium Level 10.1 MG/DL 9.6 MG/DL CSF Volume (Tube 1) 2.0 ML CSF Supernatant Color (tube 1) CLEAR CSF Gross Blood (Tube 1) 0 CSF Volume (Tube 2) 2.5 ML CSF Supernatant Color (tube 2) CLEAR CSF Gross Blood (Tube 2) 0 CSF Volume (Tube 3) 2.5 ML CSF Supernatant Color (tube 3) CLEAR CSF Gross Blood (Tube 3) 0 CSF Volume (Tube 4) 2.5 ML CSF Supernatant Color (tube 4) CLEAR CSF Gross Blood (Tube 4) 0 CSF WBC (Tube 4) 229 /MM3 CSF RBC (Tube 4) 48 /MM3 CSF Neutrophils 17 % CSF Lymphocytes 75 % CSF Monocytes 8 % CSF Glucose 60 MG/DL CSF Total Protein 193.5 MG/DL Test 03/01/17 06:33 Prothrombin Time 11.1 SEC Prothromb Time International 1.0 RATIO Ratio Creatinine 0.80 MG/DL Estimat Glomerular Filtration 98 ML/MIN Rate Constitutional Vital Signs Date Time Temp Pulse Resp B/P Pulse Ox O2 Delivery O2 Flow Rate FiO2 03/01/17 09:22 95 Nasal Cannula 2.00 Humidified 03/01/17 08:02 96 Nasal Cannula 3.00 03/01/17 07:45 97.0 72 20 105/62 96 03/01/17 06:37 97.4 80 18 93/54 98 03/01/17 05:24 90 Nasal Cannula 2.00 03/01/17 00:00 97.2 74 20 109/63 96 02/28/17 21:30 94 Nasal Cannula 2.00 02/28/17 20:20 94 Nasal Cannula 2.00 Humidified 02/28/17 20:00 96.7 68 18 108/64 94 02/28/17 17:06 96.2 78 20 106/58 97 02/28/17 12:35 96.7 90 18 111/61 95 03/01/17 07:00 Intake Total 720 ml Output Total 655 ml Balance 65 ml (Reji Paez) Review of Systems/Exam ROS Constitutional: He denies any fever or chills. HEENT/Neck: He and his report continued improvement to the swelling and pain to the right side of the head and neck. Respiratory: He denies any shortness of breath or productive cough. Cardiac: He denies any chest pain, palpitations or irregular heart beat. GI: He denies any abdominal pain, nausea, vomiting or bowel incontinence. : He denies any bladder incontinence. Back: He denies any back pain. Extremities: He denies any arm or leg pain or weakness. Neuro: The only numbness he has is to the upper scalp at the top of the swelling which is better. He reports having an intermittent headache that isn't too bad. He denies any numbness, tingling or weakness to the extremities. Exam General: Well developed, well nourished male who appears his stated age, NAD. HEENT/Neck: Right neck-suboccipital fluid collection fluctuant, appears smaller & w/less erythema, minimally tender. No nuchal rigidity. His head & neck are rotated down toward the left shoulder. No JVD, trachea midline. Respiratory: CTAB w/o W/R/R, equal excursion, non-laboured, on NC. CV: S1S2 w/RRR w/o M/G/R, radial & pedal pulses 2+ bilaterally, cap refill < 2 sec. GI: Abdomen soft, nontender, obese, positive bowel sounds. Extremities: BLEVINS, no evident deformity, discolouration or clubbing. Back: TTP at lumbar subarachnoid drain insertion site, no evident drainage, erythema or streaking. Drain to gravity drainage with clear straw-coloured drainage. Neuro: AAOx3. Speech clear & appropriate. Follows commands. Sensation grossly intact to light touch to the extremities. Motor strength 5/5 to LUE & BLE and 4+ /5 to RUE. (Reji Paez) Medications Current Medications Current Medications Medications (Trade) Dose Ordered Sig/Umu Route Start Time Stop Time Status Last Admin (NS Flush) 2 ml UNSCH PRN IV FLUSH 02/18/17 02:30 (NS Flush) 2 ml BID IV FLUSH 02/18/17 09:00 02/27/17 22:12 (Tylenol) 650 mg Q4H PRN PO 02/18/17 02:30 02/18/17 08:36 (Zofran Inj) 4 mg Q6H PRN IVP 02/18/17 02:30 (Narcan Inj) 0.4 mg UNSCH PRN IV 02/18/17 02:30 (D50w (Vial) Inj) 25 ml UNSCH PRN IV PUSH 02/18/17 02:30 (Glucagon Inj) 1 mg UNSCH PRN OTHER 02/18/17 02:30 (Xanax) 0.5 mg Q8H PRN PO 02/18/17 02:30 02/28/17 23:45 (Lioresal) 10 mg TID PRN PO 02/18/17 02:30 02/18/17 15:17 (Symbicort 160-4.5 Inh) 2 puff Q12HR INH 02/18/17 09:00 03/01/17 07:56 (Lanoxin) 0.125 mg DAILY PO 02/18/17 09:00 03/01/17 07:56 (Dilaudid Pf Inj) 0.5 mg Q4H PRN IV PUSH 02/18/17 16:00 (Percocet 10-325 Mg) 1 tab Q4H PRN PO 02/18/17 20:00 03/01/17 08:30 (Mucinex Er) 600 mg BID PO 02/18/17 21:00 03/01/17 07:56 (Fioricet 325-50-40) 1 tab Q8H PRN PO 02/19/17 09:15 02/25/17 00:27 Mupirocin 1 applic 1 applic BID EACH NARE 02/21/17 21:00 03/01/17 07:56 Sodium Chloride 1,000 ml @ 84 mls/hr [id number] IV 02/26/17 14:30 02/28/17 12:55 Pharmacy Profile Note 0 ml @ 0 mls/hr UNSCH OTHER 02/26/17 14:30 Pharmacy Profile Note 0 ml @ 0 mls/hr UNSCH OTHER 02/28/17 10:15 (Vancomycin Inj/ NS 500 ml Inj) 515 ml @ 250 mls/hr Q12H IV 02/28/17 13:00 03/01/17 00:08 Miscellaneous Information SPECIFIC LAB TO BE DRAWN:VANCOMYCIN TROUGH DATE TO... ONCE ONCE .XX 03/02/17 00:45 03/02/17 00:46 (Reji Paez) Medical Decision Making MDM Remarks 1. Prominent right occipital soft tissue fluid collection, decrease in size & erythema. 2. Right hemilaminectomy defect at the C1 level w/the right C1 arch and plates loose within the fluid collection Patient remains neurologically intact. Medicine feels patient is a low cardiac risk for any procedure Elevated WBC, RBC & protein in CSF Infectious Disease feels partially treated meningitis Hyponatremia, improved (Reji Paez) Plan Plan Remarks Continue antibiotics per Infectious Disease. Hold Coumadin. Pain management. Primary mgmt per Attending. (Reji Paez) Attending Statement I have personally seen and examined the patient on the date of this note. Pertinent documentation and study results have been reviewed by the undersigned. I have personally developed the treatment plan and performed medical decision making. Agree with findings, exam, and treatment plan as noted above. Wound less tense today, area of near dehiscence improved Neurologic exam stable Minimal headaches Continue drain (Jose De Jesus Perez MD) Reji Paez March 01, 2017 10:53 Jose De Jesus Perez MD March 02, 2017 19:31
--- NOTE | 2017-03-01 14:44 | OTSOAPIP ---
TIME SESSION COMPLETED: AM TREATMENT TIME: 5 MINS. CHART REVIEWED. ATTEMPTED TO ASSESS PATIENT FOR THE 2ND TIME, PATIENT CONTINUE TO REFUSE ANY REHAB SERVICES. PLAN: OCCUPATIONAL THERAPY SIGNING OFF INTERDISCIPLINARY COMMUNICATION: NURSING AND ENVIRONMENTAL SERVICE AIDE INFORM OF PATIENTS REFUSAL Therapist: FLO KAUR OTR/Aden Signature on file
--- NOTE | 2017-03-01 15:25 | HHI.IDPN ---
Subjective Subjective Remarks 61-year-old gentleman with history of a right retromastoid approach for resection of meningioma done approximately [address] Cartagena at [facility]. Patient states that a few days after surgery he developed swelling around the surgical area. The swelling and pain has gotten progressively worse within the last few days reason why he came to the emergency department last night for evaluation. MRI of the cervical spine from 02/17/2017 showed evidence of the right occipital craniotomy and a deflated collection in the craniotomy defect and overlying the soft tissues and the right upper cervical region. The fluid collection is approximately 476 cm in size and does not clearly communicate with the CSF spaces. The CT of the cervical spine also shows right hemilaminectomy defect at the C1 level and the right C1 arch and plates are loose within the fluid collection. Patient denies any neurological deficits. Started on empiric vancomycin and clindamycin. Overnight events reviewed No fevers overnight Reports he had an LP and drain placed. CSF studies abnormal with elevated WBC and total protein (partially treated with IV and oral antibiotics at this time) Headaches resolved since LP. reports swelling decreased in size since LP and drain. No N/V No diarrhea No neuro deficit. Antibiotics Vanco IV Clinda IV Lines Line sites with no e.o infection. Past Medical History reviewed. Allergies: Coded Allergies: Penicillin (Verified Allergy, Unknown, 02/17/17) *MDRO Multi-Drug Resistant Organism (Verified Adverse Reaction, Unknown, ) MRSA PCR Screen POSITIVE - 03/10/2016, 02/19/2017 MRSA (sputum) - 03/2016 Objective . Vital Signs Date Time Temp Pulse Resp B/P Pulse Ox O2 Delivery O2 Flow Rate FiO2 03/01/17 12:02 98 Nasal Cannula 3.00 03/01/17 11:40 97.4 76 20 103/61 96 03/01/17 09:22 95 Nasal Cannula 2.00 Humidified 03/01/17 08:02 96 Nasal Cannula 3.00 03/01/17 07:45 97.0 72 20 105/62 96 03/01/17 06:37 97.4 80 18 93/54 98 03/01/17 05:24 90 Nasal Cannula 2.00 03/01/17 00:00 97.2 74 20 109/63 96 02/28/17 21:30 94 Nasal Cannula 2.00 02/28/17 20:20 94 Nasal Cannula 2.00 Humidified 02/28/17 20:00 96.7 68 18 108/64 94 02/28/17 17:06 96.2 78 20 106/58 97 02/28/17 02/28/17 03/01/17 15:00 23:00 07:00 Intake Total 720 ml Output Total 70 ml 75 ml 510 ml Balance -70 ml 645 ml -510 ml Intake Oral 720 ml Output Urine Total 450 ml Drainage Total 70 ml 75 ml 60 ml # Voids 2 # Bowel Movements 1 0 . Laboratory Tests Test 02/28/17 03/01/17 07:32 06:33 Sodium Level 134 MEQ/L Potassium Level 4.1 MEQ/L Chloride Level 98 MEQ/L Carbon Dioxide Level 28.9 MEQ/L Anion Gap 7 MEQ/L Blood Urea Nitrogen 6 MG/DL Creatinine 0.82 MG/DL 0.80 MG/DL Estimat Glomerular Filtration 95 ML/MIN 98 ML/MIN Rate Random Glucose 127 MG/DL Calcium Level 9.6 MG/DL Microbiology Date/Time Procedure Status Source Growth 02/27/17 15:17 Gram Stain - Final Resulted Cerebral Spinal Fluid Lumbar Puncture 02/27/17 15:17 CSF Culture - Preliminary Resulted Cerebral Spinal Fluid Lumbar Puncture NO GROWTH IN 48 HOURS. 02/27/17 15:17 Acid Fast Stain - Final Resulted Cerebral Spinal Fluid Lumbar Puncture NO ACID FAST BACILLI SEEN 02/27/17 15:17 Mycobacterial Culture Resulted Cerebral Spinal Fluid Lumbar Puncture Pending 02/27/17 15:17 Fungal Smear - Final Resulted Cerebral Spinal Fluid Lumbar Puncture NO FUNGAL ELEMENTS SEEN. 02/27/17 15:17 Fungal Culture Resulted Cerebral Spinal Fluid Lumbar Puncture Pending Imaging Last Impressions Neck CT 02/18/17 0000 Signed Impressions: Service Date/Time: Saturday, February 18, 2017 00:58 - CONCLUSION: 1. Right occipital craniotomy changes with an associated fluid collection as above, thought to most likely be a seroma. 2. The attempted fixation of the craniotomy bone fragment has failed. The bone fragment and 3 malleable plates are displaced into the fluid collection. There is a loose screw but the 3 plates appear attached to the craniotomy bone fragment by at least one screw each. Beau Valle MD Chest X-Ray 02/17/17 0000 Signed Impressions: Service Date/Time: Friday, February 17, 2017 21:07 - CONCLUSION: Slight bibasilar linear atelectasis. Noé Adams MD Cervical Spine MRI 02/17/17 0000 Signed Impressions: Service Date/Time: Friday, February 17, 2017 23:37 - CONCLUSION: 1. Limited, abbreviated study. Patient refused further imaging before axial images were obtained and before contrast could be given. 2. Postop right occipital craniotomy with a fairly large fluid collection in the craniotomy defect and overlying soft tissues that is nonspecific but most likely a seroma. No definite communication with the CSF spaces. Mild mass effect on the right side of the cerebellum. Other than interdigitated mildly between the posterior processes of C1 and C2, the fluid collection does not significantly impact the cervical spine. 3. Multilevel cervical spine degenerative changes as above. There are mild degrees of spinal stenosis without cord compression or cord signal abnormality and multiple levels of upper moderate foraminal stenosis. Please see above. Beau Valle MD Brain MRI 02/17/17 0000 Signed Impressions: Service Date/Time: Friday, February 17, 2017 23:37 - CONCLUSION: 1. Limited, abbreviated study. Please see above. 2. Right occipital craniotomy defect with a fluid collection, presumably a seroma. 3. No bleed or evidence of infarct. 4. Sinus disease. Beau Valle MD Physical Exam GENERAL: This is a well-nourished, well-developed patient, in no apparent distress. SKIN: No rashes, ecchymoses or lesions. Cool and dry. HEAD: Patient has a significant boggy swelling extends from the posterior auricular area down to the nape of his neck associated with erythema but much smaller and improved size since initial exam. EYES: Pupils equal round and reactive. Extraocular motions intact. No scleral icterus. No injection or drainage. ENT: Nose without bleeding, purulent drainage or septal hematoma. Throat without erythema, tonsillar hypertrophy or exudate. Uvula midline. Airway patent. NECK: Trachea midline. Supple, nontender, no meningeal signs. CARDIOVASCULAR: Regular rate and rhythm without murmurs, gallops, or rubs. RESPIRATORY: Clear to auscultation. Breath sounds equal bilaterally. No wheezes , rales, or rhonchi. GASTROINTESTINAL: Abdomen soft, non-tender, nondistended. MUSCULOSKELETAL: Extremities without clubbing, cyanosis, or edema. NEUROLOGICAL: Awake and alert. Grossly nonfocal Psych cooperative IV line sites with no evidence of infection. Assessment & Plan Remarks Abnormal LP consistent with partially treated meningitis at this point. d/w some hardware was loose from surgery high probability for discitis and osteomyelitis. s/p meningioma resection at [facility]. COPD, atrial fibrillation on Coumadin, hepatitis C, seizures, traumatic brain injury, diabetes mellitus, hypertension, CHF Recs: Continue Vanco IV (target 15-20) for meningitis. Follow cultures Follow clinically. D.w Case management: will need IV antibiotics on discharge,Vanco IV twice a day tentative regimen. Patient refusing to go to rehab, does not qualify for [place] rehab. Yu Ivy MD March 01, 2017 15:25 d/w Dr.Estrella Villalobos Case management: will need IV antibiotics on discharge, length and type to be determined. see discussion above. Patient very thankful of care provided. Yu Ivy MD March 01, 2017 15:25
[2017-03-01] MEDS: ALPRAZolam 0.5 MG TAB PO PRN (22:02)
[2017-03-02] VITALS (9 sets, daily range): BP systolic 96–135; BP diastolic 56–77; PULSE 66–80; RESP 17–22; TEMP 96.4–97.4; O2SAT 95–99
[2017-03-02] MEDS ORDERED: PHARMACY ORDERED LAB ONE (00:45)
[2017-03-02] MEDS: RESP: ALBUTEROL 2.5 MG/IPRATROPIUM 0.5 MG NEB (SCH) NEB ×4 (01:16→11:49)
[2017-03-02] MEDS: SODIUM CHLOR 0.9% 1000 ML INJ 1,000 ML IV SCH ×2 (01:55→13:50)
[2017-03-02] MEDS: oxyCODONE/ACETAMINOPHEN 10 MG/325 MG TAB PO PRN ×6 (02:10→20:29)
[2017-03-02 02:59] LABS: VANCOMYCIN TROUGH 16.9 MCG/ML (5.0-10.0)
[2017-03-02] MEDS: VANCOMYCIN INJ 1,500 MG in SODIUM CHLORID 0.9% 500 ML INJ 500 ML IV SCH ×2 (03:46→13:49)
[2017-03-02] MEDS: INSULIN ASPART SUPPLEMENTAL SCALE SQ SCH ×4 (06:33→20:30)
[2017-03-02 08:14] LABS: PROTHROMBIN TIME - PATIENT 10.7 SEC (9.8-11.6)
[2017-03-02] MEDS: guaiFENesin E.R. 600 MG TAB PO SCH ×2 (08:20→20:28)
[2017-03-02] MEDS: BUDESONIDE-FORMOTEROL 160/4.5 MCG INHALER INH SCH ×2 (08:20→20:30)
[2017-03-02] MEDS: MUPIROCIN 2% OINT 1 APPLIC/GM SYR EACH NARE SCH ×2 (08:20→20:28)
[2017-03-02] MEDS: DIGOXIN 0.125 MG TAB PO SCH (08:20)
[2017-03-02] MEDS: SODIUM CHLORIDE 0.9% FLUSH 10 ML FLUSH IV FLUSH SCH ×2 (08:20→20:30)
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
[2017-03-02] MEDS: RESP: ALBUTEROL 2.5 MG/IPRATROPIUM 0.5 MG NEB (PRN) NEB ×3 (16:03→23:54)
--- NOTE | 2017-03-02 19:12 | HHI.PR ---
Addendum to Inpatient Note Addendum Reason: Additional Documentation Additional Information d/w case management: Pt refusing rehab and has a copay for home health IV antibiotics which he cannot afford. Difficult situation: I discussed with patient twice already he adamantly refuses rehab. Await clearance from Neurosurgery as well. Still has drain in place. Unsure if this will left in place on discharge. I will plan on visiting patient with his early next week Mon/Tues to see if we can convince him to go to rehab. covering for me this weekend. Yu Ivy MD March 02, 2017 19:12
--- NOTE | 2017-03-02 19:35 | HHI.NSPN ---
History Chief Complaint: headaches Interval History 61-year-old male underwent suboccipital-C1 procedure for meningioma at [facility]. Previously seen following surgery at [facility] emergency room for neurosurgery evaluation and referred back to [place] for one night with an aspiration of a postoperative seroma or pseudomeningocele. Now presents to [facility] with persistent seroma, mild cellulitis. Exam Results Vital Signs Date Time Temp Pulse Resp B/P Pulse Ox O2 Delivery O2 Flow Rate FiO2 03/02/17 16:03 97 Nasal Cannula 2.00 03/02/17 16:00 97.4 66 17 123/76 Intake and Output 03/01/17 03/01/17 03/02/17 08:00 16:00 00:00 Intake Total 240 ml Output Total 510 ml 875 ml 405 ml Balance -510 ml -875 ml -165 ml Physical Examination General: Well developed, well nourished male who appears his stated age, NAD. HEENT/Neck: Right neck-suboccipital fluid collection fluctuant Much less erythema and scaling of the skin over the right occipital and neck region. Overall less tenderness in the neck compared to 03/01/17 Respiratory: Clear and regular CV: Regular without murmur GI: Abdomen soft, nontender, obese, positive bowel sounds. Extremities: No calf tenderness or edema Back: TTP at lumbar subarachnoid drain insertion site, no evident drainage, erythema or streaking. Drain to gravity drainage with clear straw-coloured drainage. Neuro: AAOx3. Speech clear & appropriate. Follows commands. Sensation grossly intact to light touch to the extremities. Motor strength 5/5 to LUE & BLE and 4+ /5 to RUE. Lab, Micro, Other Results Laboratory Tests Test 03/02/17 03/02/17 02:09 07:07 Creatinine 0.75 MG/DL Estimat Glomerular Filtration 106 ML/MIN Rate Vancomycin Level Trough 16.9 MCG/ML Prothrombin Time 10.7 SEC Prothromb Time International 1.0 RATIO Ratio Medical Decision Making Impression and Plan Impression: 1. Prominent right occipital postoperative subcutaneous fluid collection. Plan: Discussed with patient. Discussed with nursing staff. Will leave drain open at shoulder level, with adjustment as necessary to maintain adequate output Wound appears to be much improved with lumbar drain 2 days. Continue IV antibiotics Continue lumbar subarachnoid drain Jose De Jesus Perez MD March 02, 2017 19:34
[2017-03-02] MEDS: ALPRAZolam 0.5 MG TAB PO PRN (20:30)
[2017-03-03] VITALS (8 sets, daily range): BP systolic 113–138; BP diastolic 62–70; PULSE 65–77; RESP 16–24; TEMP 96.6–98.7; O2SAT 92–98
[2017-03-03] MEDS: oxyCODONE/ACETAMINOPHEN 10 MG/325 MG TAB PO PRN ×7 (00:29→21:04)
[2017-03-03] MEDS: VANCOMYCIN INJ 1,500 MG in SODIUM CHLORID 0.9% 500 ML INJ 500 ML IV SCH ×2 (00:30→13:15)
[2017-03-03] MEDS: SODIUM CHLOR 0.9% 1000 ML INJ 1,000 ML IV SCH ×2 (01:45→12:26)
[2017-03-03] MEDS: INSULIN ASPART SUPPLEMENTAL SCALE SQ SCH ×4 (06:08→22:39)
[2017-03-03] MEDS: RESP: ALBUTEROL 2.5 MG/IPRATROPIUM 0.5 MG NEB (PRN) NEB ×3 (08:35→18:24)
[2017-03-03] MEDS: MUPIROCIN 2% OINT 1 APPLIC/GM SYR EACH NARE SCH ×2 (08:46→21:04)
[2017-03-03] MEDS: DIGOXIN 0.125 MG TAB PO SCH (08:46)
[2017-03-03] MEDS: guaiFENesin E.R. 600 MG TAB PO SCH ×2 (08:46→21:03)
[2017-03-03] MEDS: BUDESONIDE-FORMOTEROL 160/4.5 MCG INHALER INH SCH ×2 (08:47→21:02)
[2017-03-03] MEDS: SODIUM CHLORIDE 0.9% FLUSH 10 ML FLUSH IV FLUSH SCH ×2 (08:47→21:02)
--- NOTE | 2017-03-03 10:45 | HHI.NSPN ---
History Chief Complaint: headaches Interval History 02/18: 61-year-old gentleman with history of a right retromastoid approach for resection of meningioma done approximately [address] Cratagena at [facility]. Patient states that a few days after surgery he developed swelling around the surgical area. The swelling and pain has gotten progressively worse within the last few days reason why he came to the emergency department last night for evaluation. MRI of the cervical spine from 02/17/2017 showed evidence of the right occipital craniotomy and a deflated collection in the craniotomy defect and overlying the soft tissues and the right upper cervical region. The fluid collection is approximately 476 cm in size and does not clearly communicate with the CSF spaces. The CT of the cervical spine also shows right hemilaminectomy defect at the C1 level and the right C1 arch and plates are loose within the fluid collection. Patient denies any neurological deficits. Started on empiric vancomycin and clindamycin. 02/19: Patient is awake & alert when seen this afternoon. He complains of neck pain, headache and numbness to the swelling on the right side of his head & neck. The patient does live in the [place] area but also stated "I don't want to deal with that samuel no more and he don't want to see me either." 02/20: Patient is doing well. He still complains of neck pain, headache with numbness above the swelling to the right side of the head & neck. 02/21: Patient continues to do well. He continues to have pain to the neck & back of the head with some numbness. He is currently on contact precautions due to a positive MRSA PCR per Nursing. 02/22: This morning the patient states he is doing well. He does have a headache that started last night. He continues to be on contact isolation. 02/24: Neuro stable overnight, continue to have pain and tenderness to the swollen site 02/25: no changes to surgical site but overall feeling a better. ID consulted yesterday noted. 02/26: Patient awake & alert, states he is doing "okay" today. Still with headache and pain to the back of the head. He endorsed some nausea earlier but none at present. A CXR this morning was unremarkable. He spiked a temp of 101.1 at midnight. A CBC was just drawn when the patient was seen. 02/27: Patient went for lumbar subarachnoid drain placement 02/28: Patient doing well this afternoon when seen. He finished a neb treatment just before being seen. He has pain to the back where the lumbar drain was inserted. He did say the right occipital swelling was better. 03/01: Patient states he is doing good this morning. He reports having an intermittent headache that is not bad. Today he has no complaint of the back pain at the drain insertion site. Infectious Disease adjusted his abx yesterday based upon the CSF analysis. 03/03: Pt awakens to voice. Complains of headache. No nausea or vomiting. No weakness in extremities. Review of Systems General: Negative for: fever, chills, insomnia Respiratory: Negative for: shortness of breath, cough, sputum Cardiovascular: Negative for: chest pain Gastrointestinal: Negative for: nausea, vomitting, diarrhea, constipation Exam Results Vital Signs Date Time Temp Pulse Resp B/P Pulse Ox O2 Delivery O2 Flow Rate FiO2 03/03/17 08:38 96 Nasal Cannula 2.00 03/03/17 08:23 96.6 65 20 118/65 Intake and Output 03/02/17 03/02/17 03/03/17 08:00 16:00 00:00 Output Total 1070 ml 1025 ml 155 ml Balance -1070 ml -1025 ml -155 ml Physical Examination General: Well developed, well nourished male who appears his stated age, NAD. HEENT/Neck: Right neck-suboccipital fluid collection fluctuant Much less erythema and scaling of the skin over the right occipital and neck region. Respiratory: Clear and regular CV: Regular without murmur GI: Abdomen soft, nontender, obese, positive bowel sounds. Extremities: No calf tenderness or edema Back: TTP at lumbar subarachnoid drain insertion site, no evident drainage, erythema or streaking. Drain to gravity drainage with clear straw-coloured drainage. Neuro: AAOx3. Speech clear & appropriate. Follows commands. Sensation grossly intact to light touch to the extremities. Motor strength 5/5 to LUE & BLE and 4+ /5 to RUE. Lab, Micro, Other Results Last Impressions Lumbar Puncture Fluoroscopy 02/27/17 1400 Signed Impressions: Service Date/Time: Monday, February 27, 2017 14:12 - CONCLUSION: Uncomplicated lumbar drain placement as above. Angel Dimas MD [facility] [place] Interventional Procedure 02/27/17 0000 Signed Impressions: Service Date/Time: Monday, February 27, 2017 14:36 - CONCLUSION: Uncomplicated ultrasound guided venous access. Angel Dimas MD Chest X-Ray 02/26/17 0000 Signed Impressions: Service Date/Time: Sunday, February 26, 2017 09:33 - CONCLUSION: No acute disease. Javon Balderas MD Neck CT 02/18/17 0000 Signed Impressions: Service Date/Time: Saturday, February 18, 2017 00:58 - CONCLUSION: 1. Right occipital craniotomy changes with an associated fluid collection as above, thought to most likely be a seroma. 2. The attempted fixation of the craniotomy bone fragment has failed. The bone fragment and 3 malleable plates are displaced into the fluid collection. There is a loose screw but the 3 plates appear attached to the craniotomy bone fragment by at least one screw each. Beau Valle MD Cervical Spine MRI 02/17/17 0000 Signed Impressions: Service Date/Time: Friday, February 17, 2017 23:37 - CONCLUSION: 1. Limited, abbreviated study. Patient refused further imaging before axial images were obtained and before contrast could be given. 2. Postop right occipital craniotomy with a fairly large fluid collection in the craniotomy defect and overlying soft tissues that is nonspecific but most likely a seroma. No definite communication with the CSF spaces. Mild mass effect on the right side of the cerebellum. Other than interdigitated mildly between the posterior processes of C1 and C2, the fluid collection does not significantly impact the cervical spine. 3. Multilevel cervical spine degenerative changes as above. There are mild degrees of spinal stenosis without cord compression or cord signal abnormality and multiple levels of upper moderate foraminal stenosis. Please see above. Beau Valle MD Brain MRI 02/17/17 0000 Signed Impressions: Service Date/Time: Friday, February 17, 2017 23:37 - CONCLUSION: 1. Limited, abbreviated study. Please see above. 2. Right occipital craniotomy defect with a fluid collection, presumably a seroma. 3. No bleed or evidence of infarct. 4. Sinus disease. Beau Valle MD Laboratory Tests Test 03/03/17 07:31 Prothrombin Time 11.0 SEC Prothromb Time International 1.0 RATIO Ratio Creatinine 0.79 MG/DL Estimat Glomerular Filtration 99 ML/MIN Rate 03/02/17 03/02/17 03/03/17 15:00 23:00 07:00 Output Total 1025 ml 155 ml 580 ml Balance -1025 ml -155 ml -580 ml Output Urine Total 1025 ml 500 ml Drainage Total 155 ml 80 ml # Bowel Movements 1 Medical Decision Making Impression and Plan MDM Remarks 1. Prominent right occipital soft tissue fluid collection, decrease in size & erythema. 2. Right hemilaminectomy defect at the C1 level w/the right C1 arch and plates loose within the fluid collection Patient remains neurologically intact. Medicine feels patient is a low cardiac risk for any procedure Elevated WBC, RBC & protein in CSF Infectious Disease feels partially treated meningitis Plan Plan Plan Remarks Continue antibiotics per Infectious Disease. Hold Coumadin. Pain management. Primary mgmt per Attending. Edmond Leon March 03, 2017 10:44
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
[2017-03-03] MEDS: ALPRAZolam 0.5 MG TAB PO PRN (14:09)
[2017-03-04] VITALS (9 sets, daily range): BP systolic 113–155; BP diastolic 56–77; PULSE 64–80; RESP 18–22; TEMP 97.2–98.9; O2SAT 94–98
[2017-03-04] MEDS ORDERED: PHARMACY ORDERED LAB ONE (00:45)
[2017-03-04] MEDS: oxyCODONE/ACETAMINOPHEN 10 MG/325 MG TAB PO PRN ×7 (01:30→21:14)
[2017-03-04] MEDS: SODIUM CHLOR 0.9% 1000 ML INJ 1,000 ML IV SCH ×2 (01:35→13:51)
[2017-03-04] MEDS: ACETAMIN 325 MG/BUTALBITAL 50 MG/CAFFEINE 40 MG TAB PO PRN (02:12)
[2017-03-04] MEDS: VANCOMYCIN INJ 1,500 MG in SODIUM CHLORID 0.9% 500 ML INJ 500 ML IV SCH ×2 (02:14→13:51)
[2017-03-04] MEDS: INSULIN ASPART SUPPLEMENTAL SCALE SQ SCH ×4 (06:07→22:36)
[2017-03-04] MEDS: RESP: ALBUTEROL 2.5 MG/IPRATROPIUM 0.5 MG NEB (PRN) NEB (08:17)
[2017-03-04] MEDS: MUPIROCIN 2% OINT 1 APPLIC/GM SYR EACH NARE SCH ×2 (09:21→21:14)
[2017-03-04] MEDS: DIGOXIN 0.125 MG TAB PO SCH (09:21)
[2017-03-04] MEDS: guaiFENesin E.R. 600 MG TAB PO SCH ×2 (09:21→21:14)
[2017-03-04] MEDS: BUDESONIDE-FORMOTEROL 160/4.5 MCG INHALER INH SCH ×2 (09:22→21:14)
[2017-03-04] MEDS: SODIUM CHLORIDE 0.9% FLUSH 10 ML FLUSH IV FLUSH SCH ×2 (09:22→21:15)
--- NOTE | 2017-03-04 09:40 | HHI.NSPN ---
History Chief Complaint: headaches Interval History 02/18: 61-year-old gentleman with history of a right retromastoid approach for resection of meningioma done approximately [address] Cartagena at [facility]. Patient states that a few days after surgery he developed swelling around the surgical area. The swelling and pain has gotten progressively worse within the last few days reason why he came to the emergency department last night for evaluation. MRI of the cervical spine from 02/17/2017 showed evidence of the right occipital craniotomy and a deflated collection in the craniotomy defect and overlying the soft tissues and the right upper cervical region. The fluid collection is approximately 476 cm in size and does not clearly communicate with the CSF spaces. The CT of the cervical spine also shows right hemilaminectomy defect at the C1 level and the right C1 arch and plates are loose within the fluid collection. Patient denies any neurological deficits. Started on empiric vancomycin and clindamycin. 02/19: Patient is awake & alert when seen this afternoon. He complains of neck pain, headache and numbness to the swelling on the right side of his head & neck. The patient does live in the [place] area but also stated "I don't want to deal with that samuel no more and he don't want to see me either." 02/20: Patient is doing well. He still complains of neck pain, headache with numbness above the swelling to the right side of the head & neck. 02/21: Patient continues to do well. He continues to have pain to the neck & back of the head with some numbness. He is currently on contact precautions due to a positive MRSA PCR per Nursing. 02/22: This morning the patient states he is doing well. He does have a headache that started last night. He continues to be on contact isolation. 02/24: Neuro stable overnight, continue to have pain and tenderness to the swollen site 02/25: no changes to surgical site but overall feeling a better. ID consulted yesterday noted. 02/26: Patient awake & alert, states he is doing "okay" today. Still with headache and pain to the back of the head. He endorsed some nausea earlier but none at present. A CXR this morning was unremarkable. He spiked a temp of 101.1 at midnight. A CBC was just drawn when the patient was seen. 02/27: Patient went for lumbar subarachnoid drain placement 02/28: Patient doing well this afternoon when seen. He finished a neb treatment just before being seen. He has pain to the back where the lumbar drain was inserted. He did say the right occipital swelling was better. 03/01: Patient states he is doing good this morning. He reports having an intermittent headache that is not bad. Today he has no complaint of the back pain at the drain insertion site. Infectious Disease adjusted his abx yesterday based upon the CSF analysis. 03/03: Pt awakens to voice. Complains of headache. No nausea or vomiting. No weakness in extremities. 03/04: Patient awake and alert. Complains of headache but not getting worse. No nausea vomiting. No paresthesias and face or extremities. Review of Systems General: Negative for: fever, chills, insomnia Respiratory: Negative for: shortness of breath, cough, sputum Cardiovascular: Negative for: chest pain Gastrointestinal: Negative for: nausea, vomitting, diarrhea, constipation Exam Results Vital Signs Date Time Temp Pulse Resp B/P Pulse Ox O2 Delivery O2 Flow Rate FiO2 03/04/17 08:57 97.8 68 18 115/56 94 03/04/17 08:18 21 03/04/17 04:08 Nasal Cannula 2.00 Intake and Output 03/03/17 03/03/17 03/04/17 08:00 16:00 00:00 Intake Total 1784 ml Output Total 580 ml 1590 ml 20 ml Balance -580 ml 194 ml -20 ml Physical Examination General: Well developed, well nourished male who appears his stated age, NAD. HEENT/Neck: Right neck-suboccipital fluid collection fluctuant Much less erythema and scaling of the skin over the right occipital and neck region. Respiratory: Clear and regular CV: Regular without murmur GI: Abdomen soft, nontender, obese, positive bowel sounds. Extremities: No calf tenderness or edema Back: TTP at lumbar subarachnoid drain insertion site, no evident drainage, erythema or streaking. Drain to gravity drainage with clear straw-coloured drainage. Neuro: AAOx3. Speech clear & appropriate. Follows commands. Sensation grossly intact to light touch to the extremities. Motor strength 5/5 to LUE & BLE and 4+ /5 to RUE. Lab, Micro, Other Results Laboratory Tests Test 03/04/17 01:35 Vancomycin Level Trough 19.4 MCG/ML 03/03/17 03/03/17 03/04/17 15:00 23:00 07:00 Intake Total 1784 ml Output Total 1590 ml 20 ml 1375 ml Balance 194 ml -20 ml -1375 ml Intake Oral 360 ml IV Total 1424 ml Output Urine Total 1550 ml 1300 ml Drainage Total 40 ml 20 ml 75 ml # Voids 1 # Bowel Movements 1 Medical Decision Making Impression and Plan MDM Remarks 1. Prominent right occipital soft tissue fluid collection, decrease in size & erythema. 2. Right hemilaminectomy defect at the C1 level w/the right C1 arch and plates loose within the fluid collection Patient remains neurologically intact. Medicine feels patient is a low cardiac risk for any procedure Elevated WBC, RBC & protein in CSF Infectious Disease feels partially treated meningitis Plan Plan Plan Remarks Continue antibiotics per Infectious Disease. Hold Coumadin. Pain management. Continue with lumbar spinal drain. Edmond Leon March 04, 2017 09:40
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
[2017-03-04] MEDS: RESP: IPRATROPIUM 0.5 MG/2.5 ML NEB NEB SCH ×4 (11:50→23:33)
[2017-03-04] MEDS: ALPRAZolam 0.5 MG TAB PO PRN (22:36)
[2017-03-05] VITALS (9 sets, daily range): BP systolic 122–157; BP diastolic 71–87; PULSE 64–110; RESP 16–22; TEMP 96.6–97.6; O2SAT 93–98
[2017-03-05] MEDS: VANCOMYCIN INJ 1,500 MG in SODIUM CHLORID 0.9% 500 ML INJ 500 ML IV SCH ×2 (00:42→12:57)
[2017-03-05] MEDS: SODIUM CHLOR 0.9% 1000 ML INJ 1,000 ML IV SCH ×2 (01:25→08:02)
[2017-03-05] MEDS: RESP: IPRATROPIUM 0.5 MG/2.5 ML NEB NEB SCH ×6 (04:16→23:45)
[2017-03-05] MEDS: INSULIN ASPART SUPPLEMENTAL SCALE SQ SCH ×4 (05:49→22:51)
[2017-03-05] MEDS: oxyCODONE/ACETAMINOPHEN 10 MG/325 MG TAB PO PRN ×6 (05:50→22:45)
[2017-03-05 07:12] LABS: PROTHROMBIN TIME - PATIENT 10.9 SEC (9.8-11.6)
[2017-03-05] MEDS: DIGOXIN 0.125 MG TAB PO SCH (07:59)
[2017-03-05] MEDS: guaiFENesin E.R. 600 MG TAB PO SCH ×2 (07:59→19:54)
[2017-03-05] MEDS: MUPIROCIN 2% OINT 1 APPLIC/GM SYR EACH NARE SCH ×2 (08:00→22:45)
[2017-03-05] MEDS: ACETAMIN 325 MG/BUTALBITAL 50 MG/CAFFEINE 40 MG TAB PO PRN ×2 (08:02→19:56)
[2017-03-05] MEDS: SODIUM CHLORIDE 0.9% FLUSH 10 ML FLUSH IV FLUSH SCH ×3 (08:03→19:54)
[2017-03-05] MEDS: BUDESONIDE-FORMOTEROL 160/4.5 MCG INHALER INH SCH ×2 (08:03→20:03)
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
[2017-03-05 11:22] LABS: HEMOGLOBIN A1a 1.1 %; HEMOGLOBIN A1b 1.4 %; HEMOGLOBIN Ao 85.1 %; HEMOGLOBIN LA1C 2.1 %; HEMOGLOBIN P3 3.7 %
--- NOTE | 2017-03-05 12:38 | HHI.NSPN ---
(Reji Paez Saranya HERMAN) Note Status Status: Progress Note (Reji Paez) Interval History Interval History 02/18: 61-year-old gentleman with history of a right retromastoid approach for resection of meningioma done approximately [address] Pacheco at [facility]. Patient states that a few days after surgery he developed swelling around the surgical area. The swelling and pain has gotten progressively worse within the last few days reason why he came to the emergency department last night for evaluation. MRI of the cervical spine from 02/17/2017 showed evidence of the right occipital craniotomy and a deflated collection in the craniotomy defect and overlying the soft tissues and the right upper cervical region. The fluid collection is approximately 476 cm in size and does not clearly communicate with the CSF spaces. The CT of the cervical spine also shows right hemilaminectomy defect at the C1 level and the right C1 arch and plates are loose within the fluid collection. Patient denies any neurological deficits. Started on empiric vancomycin and clindamycin. 02/19: Patient is awake & alert when seen this afternoon. He complains of neck pain, headache and numbness to the swelling on the right side of his head & neck. The patient does live in the [place] area but also stated "I don't want to deal with that samuel no more and he don't want to see me either." 02/20: Patient is doing well. He still complains of neck pain, headache with numbness above the swelling to the right side of the head & neck. 02/21: Patient continues to do well. He continues to have pain to the neck & back of the head with some numbness. He is currently on contact precautions due to a positive MRSA PCR per Nursing. 02/22: This morning the patient states he is doing well. He does have a headache that started last night. He continues to be on contact isolation. 02/24: Neuro stable overnight, continue to have pain and tenderness to the swollen site 02/25: no changes to surgical site but overall feeling a better. ID consulted yesterday noted. 02/26: Patient awake & alert, states he is doing "okay" today. Still with headache and pain to the back of the head. He endorsed some nausea earlier but none at present. A CXR this morning was unremarkable. He spiked a temp of 101.1 at midnight. A CBC was just drawn when the patient was seen. 02/27: Patient went for lumbar subarachnoid drain placement 02/28: Patient doing well this afternoon when seen. He finished a neb treatment just before being seen. He has pain to the back where the lumbar drain was inserted. He did say the right occipital swelling was better. 03/01: Patient states he is doing good this morning. He reports having an intermittent headache that is not bad. Today he has no complaint of the back pain at the drain insertion site. Infectious Disease adjusted his abx yesterday based upon the CSF analysis. 03/03: Pt awakens to voice. Complains of headache. No nausea or vomiting. No weakness in extremities. 03/04: Patient awake and alert. Complains of headache but not getting worse. No nausea vomiting. No paresthesias and face or extremities. 03/05: Patient awake & alert this afternoon. His only complaint is a headache. He states that the right occipital swelling is better. (Reji Paez) Labs, Micro, & Vital Signs Constitutional Vital Signs Date Time Temp Pulse Resp B/P Pulse Ox O2 Delivery O2 Flow Rate FiO2 03/05/17 11:59 97.6 110 16 146/86 93 03/05/17 08:32 97.5 65 16 156/87 95 03/05/17 08:23 96 Nasal Cannula 2.00 03/05/17 07:56 Nasal Cannula 2.00 03/05/17 04:18 93 Nasal Cannula 2.00 03/05/17 04:00 96.9 64 18 150/78 96 03/05/17 00:00 96.6 72 22 122/71 96 03/04/17 23:36 95 Nasal Cannula 2.00 03/04/17 21:10 Nasal Cannula 2.00 03/04/17 20:26 94 Nasal Cannula 2.00 03/04/17 20:00 97.7 72 20 137/70 95 03/04/17 20:00 97.9 64 18 113/59 98 5/14/17 16:44 17 03/04/17 16:25 97.2 70 18 155/77 94 03/04/17 12:54 97.9 72 18 121/74 95 03/05/17 07:00 Intake Total 1999 ml Output Total 3330 ml Balance -1331 ml (Reji Paez) Review of Systems/Exam ROS Constitutional: He denies any fever or chills. HEENT/Neck: He states the swelling and pain to the right side of the head and neck is better. Respiratory: He denies any shortness of breath or productive cough. Cardiac: He denies any chest pain, palpitations or irregular heart beat. GI: He denies any abdominal pain, nausea, vomiting or bowel incontinence. : He denies any bladder incontinence. Back: He denies any back pain. Extremities: He denies any arm or leg pain or weakness. Neuro: He has a headache that persists. He denies any numbness, tingling or weakness to the extremities. Exam General: Affect normal, readily interacts, NAD. HEENT/Neck: Right neck-suboccipital fluid collection fluctuant. Erythema and scaling of the skin over the right occipital and neck region improving. Respiratory: CTAB w/o W/R/R, equal excursion, non-laboured, on NC. CV: S1S2 w/RRR w/o M/G/R, radial & pedal pulses 2+ bilaterally, cap refill < 2 sec, no pedal edema. GI: Abdomen soft, nontender, obese, positive bowel sounds. Extremities: BLEVINS, no evident deformity, discolouration or clubbing. Back: TTP at lumbar subarachnoid drain insertion site, no evident drainage, erythema or streaking. Drain to gravity drainage with clear straw-coloured drainage, clamped when seen. Neuro: AAOx3. Speech clear & appropriate. Follows commands. Sensation grossly intact to light touch to the extremities. Motor strength 5/5 to LUE & BLE and 4+ /5 to RUE. (Reji Paez) Medications Current Medications Current Medications Medications (Trade) Dose Ordered Sig/Umu Route Start Time Stop Time Status Last Admin (NS Flush) 2 ml UNSCH PRN IV FLUSH 02/18/17 02:30 (NS Flush) 2 ml BID IV FLUSH 02/18/17 09:00 03/04/17 21:15 (Tylenol) 650 mg Q4H PRN PO 02/18/17 02:30 02/18/17 08:36 (Zofran Inj) 4 mg Q6H PRN IVP 02/18/17 02:30 (Narcan Inj) 0.4 mg UNSCH PRN IV 02/18/17 02:30 (D50w (Vial) Inj) 25 ml UNSCH PRN IV PUSH 02/18/17 02:30 (Glucagon Inj) 1 mg UNSCH PRN OTHER 02/18/17 02:30 (Xanax) 0.5 mg Q8H PRN PO 02/18/17 02:30 03/04/17 22:36 (Lioresal) 10 mg TID PRN PO 02/18/17 02:30 02/18/17 15:17 (Symbicort 160-4.5 Inh) 2 puff Q12HR INH 02/18/17 09:00 03/05/17 08:03 (Lanoxin) 0.125 mg DAILY PO 02/18/17 09:00 03/05/17 07:59 (Dilaudid Pf Inj) 0.5 mg Q4H PRN IV PUSH 02/18/17 16:00 (Mucinex Er) 600 mg BID PO 02/18/17 21:00 03/05/17 07:59 (Fioricet 325-50-40) 1 tab Q8H PRN PO 02/19/17 09:15 03/05/17 08:02 Mupirocin 1 applic 1 applic BID EACH NARE 02/21/17 21:00 03/05/17 08:00 Sodium Chloride 1,000 ml @ 84 mls/hr [id number] IV 02/26/17 14:30 03/05/17 08:02 Pharmacy Profile Note 0 ml @ 0 mls/hr UNSCH OTHER 02/28/17 10:15 (Vancomycin Inj/ NS 500 ml Inj) 515 ml @ 250 mls/hr Q12H IV 02/28/17 13:00 03/05/17 00:42 (Percocet 10-325 Mg) 1 tab Q3HR PRN PO 03/03/17 11:20 03/05/17 11:50 Miscellaneous Information SPECIFIC LAB TO BE DRAWN:VANCOMYCIN TROUGH DATE TO... ONCE ONCE .XX 03/07/17 00:45 03/07/17 00:46 (Reji Paez) Medical Decision Making MDM Remarks 1. Prominent right occipital soft tissue fluid collection, decrease in size & erythema. 2. Right hemilaminectomy defect at the C1 level w/the right C1 arch and plates loose within the fluid collection Patient remains neurologically intact. Medicine feels patient is a low cardiac risk for any procedure Elevated WBC, RBC & protein in CSF Infectious Disease feels partially treated meningitis Hyponatremia, improved (Reji Paez) Plan Plan Remarks Lumbar subarachnoid drain to be open at all times. Continue antibiotics per Infectious Disease. Hold Coumadin. Pain management. Primary mgmt per Attending. (Reji Paez) Attending Statement I have personally seen and examined the patient on03/05/17. Pertinent documentation and study results have been reviewed by the undersigned. I have personally developed the treatment plan and performed medical decision making. Agree with findings, exam, and treatment plan as noted above. The right suboccipital fluid collection remains softer since his subarachnoid drain has been placed, however might be a little more erythematous compared to exam. Continuing subarachnoid drain placement. He will need to consider ventriculoperitoneal shunt placement in order to allow the tissues overlying the suboccipital fluid collection to heal and probable cellulitis to resolve. It is felt that the patient remains at relatively high risk for infection or wound dehiscence with attempted exploration and duraplasty at the operative site. (Jose De Jesus Perez MD) Reji Paez March 05, 2017 12:38 Jose De Jesus Perez MD March 06, 2017 00:32
[2017-03-06] VITALS (8 sets, daily range): BP systolic 122–154; BP diastolic 73–89; PULSE 64–71; RESP 16–22; TEMP 96.3–97.5; O2SAT 95–98
[2017-03-06] MEDS: ALPRAZolam 0.5 MG TAB PO PRN (00:09)
[2017-03-06] MEDS: SODIUM CHLOR 0.9% 1000 ML INJ 1,000 ML IV SCH ×2 (00:18→12:26)
[2017-03-06] MEDS: VANCOMYCIN INJ 1,500 MG in SODIUM CHLORID 0.9% 500 ML INJ 500 ML IV SCH ×2 (00:18→12:25)
[2017-03-06] MEDS: RESP: IPRATROPIUM 0.5 MG/2.5 ML NEB NEB SCH ×5 (03:16→19:41)
[2017-03-06] MEDS: oxyCODONE/ACETAMINOPHEN 10 MG/325 MG TAB PO PRN ×6 (03:30→21:33)
[2017-03-06] MEDS: INSULIN ASPART SUPPLEMENTAL SCALE SQ SCH ×4 (06:07→21:49)
[2017-03-06 07:02] LABS: AUTOMATED NEUTROPHIL # 3.4 TH/MM3 (1.8-7.7); BASOPHIL # 0.1 TH/MM3 (0-0.2); BASOPHIL % 1.2 % (0.0-2.0); EOSINOPHIL # 0.2 TH/MM3 (0-0.4); EOSINOPHIL % 3.6 % (0.0-4.0); HEMATOCRIT 37.4 % (39.0-51.0); LYMPH % 21.7 % (9.0-44.0); LYMPHOCYTE # 1.2 TH/MM3 (1.0-4.8); MEAN CELL VOLUME 79.2 FL (80.0-100.0); MEAN CORPUSCULAR HEMOGLOBIN 24.9 PG (27.0-34.0); MEAN CORPUSCULAR HGB CONC 31.4 % (32.0-36.0); MONO % 10.9 % (0.0-8.0); NEUT % 62.6 % (16.0-70.0); PLATELET COUNT 180 TH/MM3 (150-450); RED BLOOD COUNT 4.73 MIL/MM3 (4.50-5.90); RED CELL DISTRIBUTION WIDTH 16.2 % (11.6-17.2); WHITE BLOOD COUNT 5.4 TH/MM3 (4.0-11.0)
[2017-03-06 07:10] LABS: PROTHROMBIN TIME - PATIENT 11.4 SEC (9.8-11.6)
[2017-03-06 07:16] LABS: HEMO FLAGS AUTO DIFF
[2017-03-06 07:51] LABS: BICARBONATE 28.9 MEQ/L (21.0-32.0); MAGNESIUM 1.9 MG/DL (1.5-2.5); POTASSIUM 3.9 MEQ/L (3.5-5.1)
[2017-03-06] MEDS: DIGOXIN 0.125 MG TAB PO SCH (08:20)
[2017-03-06] MEDS: guaiFENesin E.R. 600 MG TAB PO SCH ×2 (08:20→21:32)
[2017-03-06] MEDS: MUPIROCIN 2% OINT 1 APPLIC/GM SYR EACH NARE SCH ×2 (08:21→21:32)
[2017-03-06] MEDS: BUDESONIDE-FORMOTEROL 160/4.5 MCG INHALER INH SCH ×2 (08:21→21:00)
[2017-03-06] MEDS: SODIUM CHLORIDE 0.9% FLUSH 10 ML FLUSH IV FLUSH SCH ×2 (08:21→21:00)
[2017-03-06 08:22] LABS: SCAN/DIFF AUTO DIFF CONFIRMED
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
[2017-03-07] VITALS (9 sets, daily range): BP systolic 113–144; BP diastolic 65–78; PULSE 60–67; RESP 18–20; TEMP 96.3–98.4; O2SAT 95–98
[2017-03-07] MEDS: ALPRAZolam 0.5 MG TAB PO PRN (00:10)
[2017-03-07] MEDS ORDERED: PHARMACY ORDERED LAB ONE (00:45)
[2017-03-07] MEDS: RESP: IPRATROPIUM 0.5 MG/2.5 ML NEB NEB SCH ×6 (00:50→20:27)
[2017-03-07] MEDS: oxyCODONE/ACETAMINOPHEN 10 MG/325 MG TAB PO PRN ×7 (02:13→21:08)
[2017-03-07] MEDS: SODIUM CHLOR 0.9% 1000 ML INJ 1,000 ML IV SCH ×2 (03:34→16:30)
[2017-03-07] MEDS: VANCOMYCIN INJ 1,500 MG in SODIUM CHLORID 0.9% 500 ML INJ 500 ML IV SCH ×2 (03:34→21:07)
[2017-03-07] MEDS: INSULIN ASPART SUPPLEMENTAL SCALE SQ SCH ×3 (06:29→16:29)
[2017-03-07 08:32] LABS: PROTHROMBIN TIME - PATIENT 11.4 SEC (9.8-11.6)
[2017-03-07] MEDS: ACETAMIN 325 MG/BUTALBITAL 50 MG/CAFFEINE 40 MG TAB PO PRN (08:41)
[2017-03-07] MEDS: MUPIROCIN 2% OINT 1 APPLIC/GM SYR EACH NARE SCH ×2 (08:41→21:07)
[2017-03-07] MEDS: DIGOXIN 0.125 MG TAB PO SCH (08:41)
[2017-03-07] MEDS: guaiFENesin E.R. 600 MG TAB PO SCH ×2 (08:41→21:07)
[2017-03-07] MEDS: SODIUM CHLORIDE 0.9% FLUSH 10 ML FLUSH IV FLUSH SCH ×2 (08:42→21:00)
[2017-03-07] MEDS: BUDESONIDE-FORMOTEROL 160/4.5 MCG INHALER INH SCH ×2 (08:42→21:00)
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
--- NOTE | 2017-03-07 20:33 | HHI.NSPN ---
History Chief Complaint: headaches Interval History 61-year-old male underwent suboccipital-C1 procedure for meningioma at [facility]. Previously seen following surgery at [facility] emergency room for neurosurgery evaluation and referred back to [place] for one night with an aspiration of a postoperative seroma or pseudomeningocele. Now presents to [facility] with persistent seroma, mild cellulitis. Exam Results Vital Signs Date Time Temp Pulse Resp B/P Pulse Ox O2 Delivery O2 Flow Rate FiO2 03/07/17 15:35 96.8 63 18 123/68 95 03/07/17 08:48 Nasal Cannula 2.00 03/04/17 08:18 21 Intake and Output 03/06/17 03/06/17 03/07/17 08:00 16:00 00:00 Intake Total 600 ml 3017 ml Output Total 1950 ml 280 ml 385 ml Balance -1350 ml 2737 ml -385 ml Physical Examination General: Affect normal, readily interacts, NAD. HEENT/Neck: Right neck-suboccipital fluid collection significantly improved today. Much less mass effect and relatively soft today with significant improvement in overlying scalp erythema. Respiratory: CTAB w/o W/R/R, equal excursion, non-laboured, on NC. CV: S1S2 w/RRR w/o M/G/R, radial & pedal pulses 2+ bilaterally, cap refill < 2 sec, no pedal edema. GI: Abdomen soft, nontender, obese, positive bowel sounds. Extremities: BLEVINS, no evident deformity, discolouration or clubbing. Back: TTP at lumbar subarachnoid drain insertion site, no evident drainage, erythema or streaking. Drain to gravity drainage with clear straw-coloured drainage, draining presently clamped Neuro: AAOx3. Speech clear & appropriate. Follows commands. Sensation grossly intact to light touch to the extremities. Motor strength 5/5 to LUE & BLE and 4+ /5 to RUE. Lab, Micro, Other Results Laboratory Tests Test 03/07/17 03/07/17 02:10 07:02 Vancomycin Level Trough 22.0 MCG/ML Prothrombin Time 11.4 SEC Prothromb Time International 1.0 RATIO Ratio Creatinine 0.80 MG/DL Estimat Glomerular Filtration 98 ML/MIN Rate Medical Decision Making Impression and Plan Impression: 1. Prominent right occipital postoperative subcutaneous fluid collection. Plan: Discussed with patient and his family in the room today. Significant improvement in the size and appearance of the skin at the right suboccipital scalp incision site. Plan to continue draining at present. We will discontinue the drain over the next one-2 days and send CSF cultures. If there is significant reaccumulation of fluid over the weekend, there will be an option to either place ventriculoperitoneal shunt, or attempt revision of the suboccipital dural closure. Review of previous operative note indicates a dural patch graft sewn in place with DuraSeal applied. Present preference would be to proceed with ventriculoperitoneal shunt initially to see if this will allow adequate healing at the operative site if necessary followed by a revision of the dural closure if necessary. Jose De Jesus Perez MD March 07, 2017 20:33
[2017-03-08] VITALS (11 sets, daily range): BP systolic 119–180; BP diastolic 67–91; PULSE 57–65; RESP 16–20; TEMP 96.5–98.3; O2SAT 94–97
[2017-03-08] MEDS: INSULIN ASPART SUPPLEMENTAL SCALE SQ SCH ×5 (00:12→21:38)
[2017-03-08] MEDS: ALPRAZolam 0.5 MG TAB PO PRN ×2 (00:19→21:55)
[2017-03-08] MEDS: RESP: IPRATROPIUM 0.5 MG/2.5 ML NEB NEB SCH ×6 (00:19→19:36)
[2017-03-08] MEDS: oxyCODONE/ACETAMINOPHEN 10 MG/325 MG TAB PO PRN ×8 (00:19→21:33)
[2017-03-08] MEDS: SODIUM CHLOR 0.9% 1000 ML INJ 1,000 ML IV SCH (06:38)
[2017-03-08] MEDS: guaiFENesin E.R. 600 MG TAB PO SCH ×2 (08:41→21:33)
[2017-03-08] MEDS: DIGOXIN 0.125 MG TAB PO SCH (08:41)
[2017-03-08] MEDS: SODIUM CHLORIDE 0.9% FLUSH 10 ML FLUSH IV FLUSH SCH ×2 (08:41→21:00)
[2017-03-08] MEDS: MUPIROCIN 2% OINT 1 APPLIC/GM SYR EACH NARE SCH ×2 (08:41→21:55)
[2017-03-08] MEDS: BUDESONIDE-FORMOTEROL 160/4.5 MCG INHALER INH SCH ×2 (08:41→23:16)
[2017-03-08 09:00] LABS: PROTHROMBIN TIME - PATIENT 11.3 SEC (9.8-11.6)
[2017-03-08] MEDS: ACETAMIN 325 MG/BUTALBITAL 50 MG/CAFFEINE 40 MG TAB PO PRN ×2 (09:25→23:04)
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
--- NOTE | 2017-03-08 10:47 | HHI.IDPN ---
Subjective Subjective Remarks 61-year-old gentleman with history of a right retromastoid approach for resection of meningioma done approximately [address] Cartagena at [facility]. Patient states that a few days after surgery he developed swelling around the surgical area. The swelling and pain has gotten progressively worse within the last few days reason why he came to the emergency department last night for evaluation. MRI of the cervical spine from 02/17/2017 showed evidence of the right occipital craniotomy and a deflated collection in the craniotomy defect and overlying the soft tissues and the right upper cervical region. The fluid collection is approximately 476 cm in size and does not clearly communicate with the CSF spaces. The CT of the cervical spine also shows right hemilaminectomy defect at the C1 level and the right C1 arch and plates are loose within the fluid collection. Patient denies any neurological deficits. Started on empiric vancomycin and clindamycin. Overnight events reviewed No fevers overnight Headaches persistent. No N/V No diarrhea No neuro deficit. Antibiotics Vanco IV Lines Line sites with no e.o infection. Past Medical History reviewed. Allergies: Coded Allergies: Penicillin (Verified Allergy, Unknown, 02/17/17) *MDRO Multi-Drug Resistant Organism (Verified Adverse Reaction, Unknown, ) MRSA PCR Screen POSITIVE - 03/10/2016, 02/19/2017 MRSA (sputum) - 03/2016 Objective . Vital Signs Date Time Temp Pulse Resp B/P Pulse Ox O2 Delivery O2 Flow Rate FiO2 03/08/17 08:46 Nasal Cannula 2.00 03/08/17 08:24 95 Nasal Cannula 1.00 03/08/17 08:00 98.0 65 19 148/84 96 03/08/17 04:00 98.3 61 20 144/75 94 03/08/17 03:37 96 Nasal Cannula 2.00 03/08/17 00:22 96 Nasal Cannula 2.00 03/08/17 00:00 98.1 63 20 180/91 97 03/07/17 20:27 98 Nasal Cannula 2.00 03/07/17 20:00 98.4 67 20 144/75 95 03/07/17 19:15 Nasal Cannula 2.00 03/07/17 15:35 96.8 63 18 123/68 95 03/07/17 11:42 96.8 63 18 113/69 95 03/07/17 03/07/17 03/08/17 15:00 23:00 07:00 Intake Total 240 ml 240 ml 120 ml Output Total 125 ml 305 ml 175 ml Balance 115 ml -65 ml -55 ml Intake Oral 240 ml 240 ml 120 ml Output Urine Total 250 ml Drainage Total 125 ml 55 ml 175 ml # Voids 5 1 # Bowel Movements 1 0 . Laboratory Tests Test 03/07/17 07:02 Creatinine 0.80 MG/DL Estimat Glomerular Filtration 98 ML/MIN Rate Imaging Last Impressions Neck CT 02/18/17 0000 Signed Impressions: Service Date/Time: Saturday, February 18, 2017 00:58 - CONCLUSION: 1. Right occipital craniotomy changes with an associated fluid collection as above, thought to most likely be a seroma. 2. The attempted fixation of the craniotomy bone fragment has failed. The bone fragment and 3 malleable plates are displaced into the fluid collection. There is a loose screw but the 3 plates appear attached to the craniotomy bone fragment by at least one screw each. Beau Valle MD Chest X-Ray 02/17/17 Signed Impressions: Service Date/Time: Friday, February 17, 2017 21:07 - CONCLUSION: Slight bibasilar linear atelectasis. Noé Adams MD Cervical Spine MRI 02/17/17 Signed Impressions: Service Date/Time: Friday, February 17, 2017 23:37 - CONCLUSION: 1. Limited, abbreviated study. Patient refused further imaging before axial images were obtained and before contrast could be given. 2. Postop right occipital craniotomy with a fairly large fluid collection in the craniotomy defect and overlying soft tissues that is nonspecific but most likely a seroma. No definite communication with the CSF spaces. Mild mass effect on the right side of the cerebellum. Other than interdigitated mildly between the posterior processes of C1 and C2, the fluid collection does not significantly impact the cervical spine. 3. Multilevel cervical spine degenerative changes as above. There are mild degrees of spinal stenosis without cord compression or cord signal abnormality and multiple levels of upper moderate foraminal stenosis. Please see above. Beau Valle MD Brain MRI 02/17/17 Signed Impressions: Service Date/Time: Friday, February 17, 2017 23:37 - CONCLUSION: 1. Limited, abbreviated study. Please see above. 2. Right occipital craniotomy defect with a fluid collection, presumably a seroma. 3. No bleed or evidence of infarct. 4. Sinus disease. Beau Valle MD Physical Exam GENERAL: This is a well-nourished, well-developed patient, in no apparent distress. SKIN: No rashes, ecchymoses or lesions. Cool and dry. HEAD: Patient has a significant boggy swelling extends from the posterior auricular area down to the nape of his neck associated with erythema but much smaller and improved size since initial exam. EYES: Pupils equal round and reactive. Extraocular motions intact. No scleral icterus. No injection or drainage. ENT: Nose without bleeding, purulent drainage or septal hematoma. Throat without erythema, tonsillar hypertrophy or exudate. Uvula midline. Airway patent. NECK: Trachea midline. Supple, nontender, no meningeal signs. CARDIOVASCULAR: Regular rate and rhythm without murmurs, gallops, or rubs. RESPIRATORY: Clear to auscultation. Breath sounds equal bilaterally. No wheezes , rales, or rhonchi. GASTROINTESTINAL: Abdomen soft, non-tender, nondistended. MUSCULOSKELETAL: Extremities without clubbing, cyanosis, or edema. NEUROLOGICAL: Awake and alert. Grossly nonfocal Psych cooperative IV line sites with no evidence of infection. Assessment & Plan Remarks Abnormal LP consistent with partially treated meningitis at this point. d/w some hardware was loose from surgery high probability for discitis and osteomyelitis. s/p meningioma resection at [facility]. COPD, atrial fibrillation on Coumadin, hepatitis C, seizures, traumatic brain injury, diabetes mellitus, hypertension, CHF Recs: Continue Vanco IV (target 15-20) for possible discitis per my discussions about loose hardware which could be discitis related. Patw Reji Paez about plan for 6 wks. Await further discussion with . Would not recommend surgery in the midst of being treated for discitis. Follow cultures Follow clinically. Yu Ivy MD March 08, 2017 10:47
[2017-03-08] MEDS: VANCOMYCIN INJ 1,500 MG in SODIUM CHLORID 0.9% 500 ML INJ 500 ML IV SCH (15:26)
--- NOTE | 2017-03-08 20:23 | HHI.NSPN ---
History Chief Complaint: headaches Interval History 61-year-old male underwent suboccipital-C1 procedure for meningioma at [facility]. Previously seen following surgery at [facility] emergency room for neurosurgery evaluation and referred back to [place] for one night with an aspiration of a postoperative seroma or pseudomeningocele. Now presents to [facility] with persistent seroma, mild cellulitis. Exam Results Vital Signs Date Time Temp Pulse Resp B/P Pulse Ox O2 Delivery O2 Flow Rate FiO2 03/08/17 16:00 97.1 57 19 131/79 97 03/08/17 15:33 Nasal Cannula 1.00 03/04/17 08:18 21 Intake and Output 03/07/17 03/07/17 03/08/17 08:00 16:00 00:00 Intake Total 1480 ml 240 ml 240 ml Output Total 1975 ml 305 ml Balance -495 ml 240 ml -65 ml Physical Examination General: Affect normal, readily interacts, NAD. HEENT/Neck: Right neck-suboccipital fluid collection continues to be significantly improved compared to last week. Much less mass effect and relatively soft today with significant improvement in overlying scalp erythema. Respiratory: CTAB w/o W/R/R, equal excursion, non-laboured, on NC. CV: S1S2 w/RRR w/o M/G/R, radial & pedal pulses 2+ bilaterally, cap refill < 2 sec, no pedal edema. GI: Abdomen soft, nontender, obese, positive bowel sounds. Extremities: BLEVINS, no evident deformity, discolouration or clubbing. Back: TTP at lumbar subarachnoid drain insertion site, no evident drainage, erythema or streaking. Drain to gravity drainage with clear straw-coloured drainage, draining presently clamped Neuro: AAOx3. Speech clear & appropriate. Follows commands. Sensation grossly intact to light touch to the extremities. Motor strength 5/5 to LUE & BLE and 4+ /5 to RUE. Medical Decision Making Impression and Plan Impression: 1. Prominent right occipital postoperative subcutaneous fluid collection. Plan: Discussed with patient and his family in the room today. Significant improvement in the size and appearance of the skin at the right suboccipital scalp incision site. Drain discontinued today. Further culture results pending If there is significant reaccumulation of fluid over the weekend, there will be an option to either place ventriculoperitoneal shunt, or attempt revision of the suboccipital dural closure. Review of previous operative note indicates a dural patch graft sewn in place with DuraSeal applied. Present preference would be to proceed with ventriculoperitoneal shunt initially to see if this will allow adequate healing at the operative site if necessary followed by a revision of the dural closure if necessary. Jose De Jesus Perez MD March 08, 2017 20:22
[2017-03-09] VITALS (7 sets, daily range): BP systolic 115–149; BP diastolic 52–85; PULSE 56–64; RESP 18–28; TEMP 96.4–97.8; O2SAT 94–99
[2017-03-09] MEDS: RESP: IPRATROPIUM 0.5 MG/2.5 ML NEB NEB SCH ×6 (00:29→20:00)
[2017-03-09] MEDS: oxyCODONE/ACETAMINOPHEN 10 MG/325 MG TAB PO PRN ×7 (00:40→23:32)
[2017-03-09] MEDS: HYDROmorphone HCL PF 1 MG/ML VIAL IV PUSH PRN ×5 (05:42→21:47)
[2017-03-09] MEDS: SODIUM CHLORIDE 0.9% FLUSH 10 ML FLUSH IV FLUSH PRN (05:43)
[2017-03-09] MEDS: INSULIN ASPART SUPPLEMENTAL SCALE SQ SCH ×4 (07:00→21:41)
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
[2017-03-09] MEDS: MUPIROCIN 2% OINT 1 APPLIC/GM SYR EACH NARE SCH ×2 (08:47→21:45)
[2017-03-09] MEDS: BUDESONIDE-FORMOTEROL 160/4.5 MCG INHALER INH SCH ×2 (08:48→23:07)
[2017-03-09] MEDS: DIGOXIN 0.125 MG TAB PO SCH (08:48)
[2017-03-09] MEDS: SODIUM CHLORIDE 0.9% FLUSH 10 ML FLUSH IV FLUSH SCH ×2 (08:48→21:48)
[2017-03-09] MEDS: guaiFENesin E.R. 600 MG TAB PO SCH ×2 (08:48→21:43)
[2017-03-09] MEDS: VANCOMYCIN INJ 1,500 MG in SODIUM CHLORID 0.9% 500 ML INJ 500 ML IV SCH (09:05)
[2017-03-09] MEDS: SODIUM CHLOR 0.9% 1000 ML INJ 1,000 ML IV SCH (12:40)
--- NOTE | 2017-03-09 12:48 | HHI.NSPN ---
(Reji Paez Saranya HERMAN) Note Status Status: Progress Note (Reji Paez) Interval History Interval History 02/18: 61-year-old gentleman with history of a right retromastoid approach for resection of meningioma done approximately [address] Pacheco at [facility]. Patient states that a few days after surgery he developed swelling around the surgical area. The swelling and pain has gotten progressively worse within the last few days reason why he came to the emergency department last night for evaluation. MRI of the cervical spine from 02/17/2017 showed evidence of the right occipital craniotomy and a deflated collection in the craniotomy defect and overlying the soft tissues and the right upper cervical region. The fluid collection is approximately 476 cm in size and does not clearly communicate with the CSF spaces. The CT of the cervical spine also shows right hemilaminectomy defect at the C1 level and the right C1 arch and plates are loose within the fluid collection. Patient denies any neurological deficits. Started on empiric vancomycin and clindamycin. 02/19: Patient is awake & alert when seen this afternoon. He complains of neck pain, headache and numbness to the swelling on the right side of his head & neck. The patient does live in the [place] area but also stated "I don't want to deal with that samuel no more and he don't want to see me either." 02/20: Patient is doing well. He still complains of neck pain, headache with numbness above the swelling to the right side of the head & neck. 02/21: Patient continues to do well. He continues to have pain to the neck & back of the head with some numbness. He is currently on contact precautions due to a positive MRSA PCR per Nursing. 02/22: This morning the patient states he is doing well. He does have a headache that started last night. He continues to be on contact isolation. 02/24: Neuro stable overnight, continue to have pain and tenderness to the swollen site 02/25: no changes to surgical site but overall feeling a better. ID consulted yesterday noted. 02/26: Patient awake & alert, states he is doing "okay" today. Still with headache and pain to the back of the head. He endorsed some nausea earlier but none at present. A CXR this morning was unremarkable. He spiked a temp of 101.1 at midnight. A CBC was just drawn when the patient was seen. 02/27: Patient went for lumbar subarachnoid drain placement 02/28: Patient doing well this afternoon when seen. He finished a neb treatment just before being seen. He has pain to the back where the lumbar drain was inserted. He did say the right occipital swelling was better. 03/01: Patient states he is doing good this morning. He reports having an intermittent headache that is not bad. Today he has no complaint of the back pain at the drain insertion site. Infectious Disease adjusted his abx yesterday based upon the CSF analysis. 03/03: Pt awakens to voice. Complains of headache. No nausea or vomiting. No weakness in extremities. 03/04: Patient awake and alert. Complains of headache but not getting worse. No nausea vomiting. No paresthesias and face or extremities. 03/05: Patient awake & alert this afternoon. His only complaint is a headache. He states that the right occipital swelling is better. 03/09: Patient awake & alert when seen this afternoon and is doing good. His IV pump is going off and irritating him. He states that he has had some headache but none at present. He reports that the lumbar subarachnoid drain was removed yesterday. CSF was sent for culture. (Reji Paez) Labs, Micro, & Vital Signs Constitutional Vital Signs Date Time Temp Pulse Resp B/P Pulse Ox O2 Delivery O2 Flow Rate FiO2 03/09/17 11:32 18 03/09/17 09:17 18 03/09/17 08:00 97.1 60 18 115/69 95 03/09/17 08:00 Nasal Cannula 2.00 03/09/17 07:51 95 Nasal Cannula 1.00 03/09/17 05:42 97.8 56 18 147/75 98 03/09/17 00:00 Nasal Cannula 2.00 03/08/17 23:57 97.6 60 16 122/74 97 03/08/17 20:22 96.5 65 16 119/67 97 03/08/17 16:00 97.1 57 19 131/79 97 03/08/17 15:33 95 Nasal Cannula 1.00 03/09/17 07:00 Intake Total 1960 ml Output Total 2050 ml Balance -90 ml (Reji Paez) Review of Systems/Exam ROS Constitutional: He denies any fever or chills. HEENT/Neck: He states the swelling is much better to the right side of the head and neck is better. Respiratory: He denies any shortness of breath or productive cough. Cardiac: He denies any chest pain, palpitations or irregular heart beat. GI: He denies any abdominal pain, nausea, vomiting or bowel incontinence. : He denies any bladder incontinence. Back: He states he has back pain from being in bed so much. Extremities: He denies any arm or leg pain or weakness. Neuro: He states that he has had headaches but none at present. He denies any numbness, tingling or weakness to the extremities. Exam General: Affect normal, readily interacts, NAD. HEENT/Neck: Right neck-suboccipital fluid collection significantly improved compared 2 days ago with significant improvement in overlying scalp erythema. Respiratory: CTAB w/o W/R/R, equal excursion, non-laboured, on NC. CV: S1S2 w/RRR w/o M/G/R, radial & pedal pulses 2+ bilaterally, cap refill < 2 sec, no pedal edema. GI: Abdomen soft, nontender, obese, positive bowel sounds. Extremities: BLEVINS, no evident deformity, discolouration or clubbing. Back: Minimally TTP at lumbar subarachnoid drain insertion site, no evident drainage, erythema or streaking, dressing intact. Neuro: AAOx3. Speech clear & appropriate. Follows commands. Sensation grossly intact to light touch to the extremities. Motor strength 5/5 to LUE & BLE and 4+ /5 to RUE. (Reji Paez) Medications Current Medications Current Medications Medications (Trade) Dose Ordered Sig/Umu Route Start Time Stop Time Status Last Admin (NS Flush) 2 ml UNSCH PRN IV FLUSH 02/18/17 02:30 03/09/17 05:43 (NS Flush) 2 ml BID IV FLUSH 02/18/17 09:00 03/06/17 08:21 (Tylenol) 650 mg Q4H PRN PO 02/18/17 02:30 02/18/17 08:36 (Zofran Inj) 4 mg Q6H PRN IVP 02/18/17 02:30 (Narcan Inj) 0.4 mg UNSCH PRN IV 02/18/17 02:30 (D50w (Vial) Inj) 25 ml UNSCH PRN IV PUSH 02/18/17 02:30 (Glucagon Inj) 1 mg UNSCH PRN OTHER 02/18/17 02:30 (Xanax) 0.5 mg Q8H PRN PO 02/18/17 02:30 03/08/17 21:55 (Lioresal) 10 mg TID PRN PO 02/18/17 02:30 02/18/17 15:17 (Symbicort 160-4.5 Inh) 2 puff Q12HR INH 02/18/17 09:00 03/09/17 08:48 (Lanoxin) 0.125 mg DAILY PO 02/18/17 09:00 03/09/17 08:48 (Dilaudid Pf Inj) 0.5 mg Q4H PRN IV PUSH 02/18/17 16:00 03/09/17 08:47 (Mucinex Er) 600 mg BID PO 02/18/17 21:00 03/09/17 08:48 (Fioricet 325-50-40) 1 tab Q8H PRN PO 02/19/17 09:15 03/08/17 23:04 Mupirocin 1 applic 1 applic BID EACH NARE 02/21/17 21:00 03/09/17 08:47 Sodium Chloride 1,000 ml @ 84 mls/hr [id number] IV 02/26/17 14:30 03/08/17 06:38 (Vancomycin Consult Pharmacy) 0 ml @ 0 mls/hr UNSCH OTHER 02/28/17 10:15 Oxycodone/ Acetaminophen 1 tab 1 tab Q3HR PRN PO 03/03/17 11:20 03/09/17 10:32 (Vancomycin Inj/ NS 500 ml Inj) 515 ml @ 250 mls/hr Q18H IV 03/07/17 21:00 03/09/17 09:05 Miscellaneous Information SPECIFIC LAB TO BE DRAWN:VANCOMYCIN TROUGH DATE TO... ONCE ONCE .XX 03/10/17 02:45 03/10/17 02:46 (Reji Paez) Medical Decision Making MDM Remarks 1. Prominent right occipital soft tissue fluid collection, significant improvement in size & erythema. 2. Right hemilaminectomy defect at the C1 level w/the right C1 arch and plates loose within the fluid collection Patient remains neurologically intact. Medicine feels patient is a low cardiac risk for any procedure Infectious Disease want to treat till at least before any surgery per patient Elevated WBC, RBC & protein in CSF Infectious Disease feels partially treated meningitis Hyponatremia, improved CSF cultures w/o any growth < 24 hrs, nothing on Gram stain (Reji Paez) Plan Plan Remarks Continue antibiotics per Infectious Disease. Hold Coumadin. Pain management. Primary mgmt per Attending. If there is significant reaccumulation of fluid over the weekend, there will be an option to either place ventriculoperitoneal shunt, or attempt revision of the suboccipital dural closure. Review of previous operative note by Dr Perez indicates a dural patch graft sewn in place with DuraSeal applied. Present preference would be to proceed with ventriculoperitoneal shunt initially to see if this will allow adequate healing at the operative site if necessary followed by a revision of the dural closure if necessary. (Reji Paez) Attending Statement I have personally seen and examined the patient on the date of this note. Pertinent documentation and study results have been reviewed by the undersigned. I have personally developed the treatment plan and performed medical decision making. Agree with findings, exam, and treatment plan as noted above. No new complaints from the patient. The right suboccipital fluid collection remains relatively soft with no increased erythema along the scalp compared to 03/08/17. Continuing observation of the fluid collection with consideration of ventriculoperitoneal shunt next week if the fluid collection recurs. (Jose De Jesus Perez MD) Reji Paez March 09, 2017 12:48 Jose De Jesus Perez MD March 09, 2017 23:50
[2017-03-09] MEDS: ACETAMIN 325 MG/BUTALBITAL 50 MG/CAFFEINE 40 MG TAB PO PRN (21:44)
[2017-03-10] VITALS (7 sets, daily range): BP systolic 114–130; BP diastolic 70–76; PULSE 56–60; RESP 18–22; TEMP 96.2–97.6; O2SAT 96–98
[2017-03-10] MEDS: HYDROmorphone HCL PF 1 MG/ML VIAL IV PUSH PRN ×6 (01:46→22:45)
[2017-03-10] MEDS: SODIUM CHLORIDE 0.9% FLUSH 10 ML FLUSH IV FLUSH PRN ×3 (01:47→05:41)
[2017-03-10] MEDS ORDERED: PHARMACY ORDERED LAB ONE (02:45)
[2017-03-10] MEDS: RESP: IPRATROPIUM 0.5 MG/2.5 ML NEB NEB SCH ×5 (03:17→21:25)
[2017-03-10] MEDS: oxyCODONE/ACETAMINOPHEN 10 MG/325 MG TAB PO PRN ×6 (03:32→20:23)
[2017-03-10] MEDS: VANCOMYCIN INJ 1,500 MG in SODIUM CHLORID 0.9% 500 ML INJ 500 ML IV SCH (03:41)
[2017-03-10] MEDS: INSULIN ASPART SUPPLEMENTAL SCALE SQ SCH ×4 (07:00→20:34)
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
[2017-03-10] MEDS: BUDESONIDE-FORMOTEROL 160/4.5 MCG INHALER INH SCH ×2 (09:44→20:37)
[2017-03-10] MEDS: MUPIROCIN 2% OINT 1 APPLIC/GM SYR EACH NARE SCH ×2 (09:44→20:22)
[2017-03-10] MEDS: SODIUM CHLORIDE 0.9% FLUSH 10 ML FLUSH IV FLUSH SCH ×2 (09:44→22:45)
[2017-03-10] MEDS: SODIUM CHLOR 0.9% 1000 ML INJ 1,000 ML IV SCH ×2 (09:44→13:00)
[2017-03-10] MEDS: DIGOXIN 0.125 MG TAB PO SCH (09:46)
[2017-03-10] MEDS: guaiFENesin E.R. 600 MG TAB PO SCH ×2 (09:46→20:22)
[2017-03-10] MEDS: ACETAMIN 325 MG/BUTALBITAL 50 MG/CAFFEINE 40 MG TAB PO PRN (16:19)
[2017-03-10] MEDS ORDERED: LIDOCAINE HCL 1% 50 ML VIAL ONE (17:06)
[2017-03-10] MEDS ORDERED: LIDOCAINE HCL 1% 50 ML VIAL INFIL ONE (17:15)
--- NOTE | 2017-03-10 20:32 | HHI.NSPN ---
History Chief Complaint: headaches Interval History 61-year-old male underwent suboccipital-C1 procedure for meningioma at [facility]. Previously seen following surgery at [facility] emergency room for neurosurgery evaluation and referred back to [place] for one night with an aspiration of a postoperative seroma or pseudomeningocele. Now presents to [facility] with persistent seroma, mild cellulitis. 03/10/2017: Small amount of persistent CSF leakage from the drain site. Site sutured using sterile technique Exam Results Vital Signs Date Time Temp Pulse Resp B/P Pulse Ox O2 Delivery O2 Flow Rate FiO2 03/10/17 16:35 97.1 60 20 130/76 96 03/10/17 09:45 Nasal Cannula 2.00 Intake and Output 03/09/17 03/09/17 03/10/17 08:00 16:00 00:00 Intake Total 480 ml Output Total 650 ml 300 ml Balance -650 ml 180 ml Physical Examination General: Affect normal, readily interacts, NAD. HEENT/Neck: Right neck-suboccipital fluid collection significantly improved compared 2 days ago with significant improvement in overlying scalp erythema. Respiratory: CTAB w/o W/R/R, equal excursion, non-laboured, on NC. CV: S1S2 w/RRR w/o M/G/R, radial & pedal pulses 2+ bilaterally, cap refill < 2 sec, no pedal edema. GI: Abdomen soft, nontender, obese, positive bowel sounds. Extremities: BLEVINS, no evident deformity, discolouration or clubbing. Back: Nontender. Mild erythema and slight amount of CSF drainage from the lumbar subarachnoid drain insertion site. Neuro: AAOx3. Speech clear & appropriate. Follows commands. Sensation grossly intact to light touch to the extremities. Motor strength 5/5 to LUE & BLE and 4+ /5 to RUE. Lab, Micro, Other Results Laboratory Tests Test 03/10/17 03:55 Vancomycin Level Trough 14.3 MCG/ML Medical Decision Making Impression and Plan Impression: 1. right occipital postoperative subcutaneous fluid collection. Significantly improved following subarachnoid drain. Plan: Discussed with patient and his sister in the room today Right occipital-upper neck fluid collection remained soft. Erythema remains significantly diminished compared to last week. A suture was applied to the subarachnoid drain catheter insertion site using sterile technique today. Continue observation of the occipital region. Possible ventriculoperitoneal shunt next week if significant recurrent fluid collection. Continuing antibiotics for cellulitis Jose De Jesus Perez MD March 10, 2017 20:32
[2017-03-10] MEDS: VANCOMYCIN INJ 1,750 MG in SODIUM CHLORID 0.9% 500 ML INJ 500 ML IV SCH (20:37)
[2017-03-10] MEDS: ALPRAZolam 0.5 MG TAB PO PRN (22:44)
[2017-03-11] VITALS (7 sets, daily range): BP systolic 112–139; BP diastolic 72–86; PULSE 57–72; RESP 18–21; TEMP 96.8–97.8; O2SAT 94–98
[2017-03-11] MEDS: oxyCODONE/ACETAMINOPHEN 10 MG/325 MG TAB PO PRN ×5 (02:59→20:38)
[2017-03-11] MEDS: RESP: IPRATROPIUM 0.5 MG/2.5 ML NEB NEB SCH ×6 (04:00→19:40)
[2017-03-11] MEDS: HYDROmorphone HCL PF 1 MG/ML VIAL IV PUSH PRN ×3 (05:58→15:22)
[2017-03-11] MEDS: SODIUM CHLORIDE 0.9% FLUSH 10 ML FLUSH IV FLUSH PRN (05:58)
[2017-03-11] MEDS: INSULIN ASPART SUPPLEMENTAL SCALE SQ SCH ×4 (07:00→21:00)
--- NOTE | 2017-03-11 08:23 | HHI.PR ---
Subjective Remarks resting comfortably with no acute distress. has some pain to the back of the head. no fever. Objective Vitals Vital Signs Date Time Temp Pulse Resp B/P Pulse Ox O2 Delivery O2 Flow Rate FiO2 03/11/17 08:07 97.7 59 20 116/72 97 03/11/17 07:57 98 Nasal Cannula 2.00 03/11/17 04:00 97.5 58 18 119/76 96 03/11/17 00:00 97.4 57 18 127/74 97 03/11/17 00:00 Nasal Cannula 2.00 03/10/17 21:28 97 Nasal Cannula 2.00 03/10/17 20:00 97.6 60 18 125/73 96 03/10/17 16:35 97.1 60 20 130/76 96 03/10/17 12:12 97.4 56 20 130/74 96 03/10/17 09:45 Nasal Cannula 2.00 03/10/17 09:17 96 Nasal Cannula 2.00 I/O 03/10/17 03/10/17 03/10/17 03/11/17 03/11/17 03/11/17 07:00 15:00 23:00 07:00 15:00 23:00 Intake Total 480 ml 650 ml Balance 480 ml 650 ml Intake Oral 480 ml 650 ml # Voids 4 4 # Bowel Movements 1 Result Diagram: 03/09/17 1749 Imaging Last Impressions Lumbar Puncture Fluoroscopy 02/27/17 1400 Signed Impressions: Service Date/Time: Monday, February 27, 2017 14:12 - CONCLUSION: Uncomplicated lumbar drain placement as above. Angel Dimas MD [facility] [place] Interventional Procedure 02/27/17 0000 Signed Impressions: Service Date/Time: Monday, February 27, 2017 14:36 - CONCLUSION: Uncomplicated ultrasound guided venous access. Angel Dimas MD Chest X-Ray 02/26/17 0000 Signed Impressions: Service Date/Time: Sunday, February 26, 2017 09:33 - CONCLUSION: No acute disease. Javon Balderas MD Neck CT 02/18/17 0000 Signed Impressions: Service Date/Time: Saturday, February 18, 2017 00:58 - CONCLUSION: 1. Right occipital craniotomy changes with an associated fluid collection as above, thought to most likely be a seroma. 2. The attempted fixation of the craniotomy bone fragment has failed. The bone fragment and 3 malleable plates are displaced into the fluid collection. There is a loose screw but the 3 plates appear attached to the craniotomy bone fragment by at least one screw each. Beau Valle MD Cervical Spine MRI 02/17/17 0000 Signed Impressions: Service Date/Time: Friday, February 17, 2017 23:37 - CONCLUSION: 1. Limited, abbreviated study. Patient refused further imaging before axial images were obtained and before contrast could be given. 2. Postop right occipital craniotomy with a fairly large fluid collection in the craniotomy defect and overlying soft tissues that is nonspecific but most likely a seroma. No definite communication with the CSF spaces. Mild mass effect on the right side of the cerebellum. Other than interdigitated mildly between the posterior processes of C1 and C2, the fluid collection does not significantly impact the cervical spine. 3. Multilevel cervical spine degenerative changes as above. There are mild degrees of spinal stenosis without cord compression or cord signal abnormality and multiple levels of upper moderate foraminal stenosis. Please see above. Beau Valle MD Brain MRI 02/17/17 0000 Signed Impressions: Service Date/Time: Friday, February 17, 2017 23:37 - CONCLUSION: 1. Limited, abbreviated study. Please see above. 2. Right occipital craniotomy defect with a fluid collection, presumably a seroma. 3. No bleed or evidence of infarct. 4. Sinus disease. Beau Valle MD Objective Remarks GENERAL: This is a well-nourished, well-developed patient, in no apparent distress. Head; mild swelling and erythema of the right suboccipital region. CARDIOVASCULAR: Regular rate and regular rhythm without murmurs, gallops, or rubs. RESPIRATORY: Clear to auscultation. Breath sounds equal bilaterally. No wheezes , rales, or rhonchi. GASTROINTESTINAL: Abdomen soft, non-tender, nondistended. Normal, active bowel sounds MUSCULOSKELETAL: Extremities without clubbing, cyanosis, or edema. NEURO: Alert & Oriented x4 to person, place, time, situation. Moves all ext x4 Procedures LP Medications and IVs Current Medications Sodium Chloride (NS 1000 ml Inj) 1,000 ml @ 999 mls/hr BOLUS ONCE IV Last administered on 02/17/17t 21:40; Start 02/17/17 at 21:15; Stop 02/17/17 at 22:15 ; Status DC Ondansetron HCl (Zofran Inj) 4 mg ONCE ONCE IV PUSH Last administered on 21:40; Start 02/17/17 at 21:15; Stop 02/17/17 at 21:16; Status DC Albuterol/ Ipratropium (Duoneb Neb) 1 ampule Q15M INH Last administered on 02/17 21:29; Start 02/17/17 at 21:15; Stop 02/17/17 at 21:31; Status DC Morphine Sulfate 4 mg 4 mg ONCE ONCE IV PUSH Last administered on 02/17/17 21 :40; Start 02/17/17 at 21:30; Stop 02/17/17 at 21:31; Status DC Vancomycin HCl/ Sodium Chloride (Vancomycin Inj/ NS 250 ml Inj) 250 ml @ 250 mls/hr ONCE ONCE IV Last administered on 02/17/17 22:34; Start 02/17/17 at 22 :30; Stop 02/17/17 at 23:29; Status DC Potassium Chloride 40 meq 40 meq ONCE ONCE PO Last administered on 02/17/17 22:41; Start 02/17/17 at 22:30; Stop 02/17/17 at 22:31; Status DC Potassium Chloride 100 ml @ 100 mls/hr BOLUS ONCE IV Last administered on 00:35; Start 02/17/17 at 22:30; Stop 02/17/17 at 23:29; Status DC Clindamycin Phosphate 600 mg/ Sodium Chloride 104 ml @ 208 mls/hr ONCE ONCE IV Last administered on 02/18/17 02:23; Start 02/17/17 at 23:00; Stop at 23:29; Status DC Sodium Chloride (NS 500 ml Inj) 500 ml @ 500 mls/hr BOLUS ONCE IV Last administered on 02/18/17 00:35; Start 02/17/17 at 23:15; Stop 02/18/17 at 00:14 ; Status DC Hydromorphone HCl (Dilaudid Pf Inj) 0.5 mg ONCE ONCE IV PUSH Last administered on 02/17/17 23:27; Start 02/17/17 at 23:15; Stop 02/17/17 at 23:16 ; Status DC Iohexol (Omnipaque 350 Inj) 70 ml STK-MED ONCE IV Last administered on 01:05; Start 02/18/17 at 01:05; Stop 02/18/17 at 01:06; Status DC Sodium Chloride (NS Flush) 2 ml BID IV FLUSH ; Start 02/18/17 at 09:00; Stop at 09:00; Status DC Sodium Chloride (NS Flush) 2 ml UNSCH PRN IVF FLUSH AFTER USING IV ACCESS; Start 02/18/17 at 02:30; Stop 02/18/17 at 02:39; Status DC Sodium Chloride (NS Flush) 2 ml UNSCH PRN IV FLUSH FLUSH AFTER USING IV ACCESS Last administered on 03/11/17 05:58; Start 02/18/17 at 02:30 Sodium Chloride (NS Flush) 2 ml BID IV FLUSH Last administered on 03/10/17 22: 45; Start 02/18/17 at 09:00 Acetaminophen (Tylenol) 650 mg Q4H PRN PO TEMP > 100.4 Last administered on 08:36; Start 02/18/17 at 02:30 Ondansetron HCl (Zofran Inj) 4 mg Q6H PRN IVP NAUSEA OR VOMITING; Start at 02:30 Naloxone HCl 0.4 mg 0.4 mg UNSCH PRN IV SEE LABEL COMMENTS; Start 02/18/17 at 02:30 Clindamycin Phosphate 600 mg/ Sodium Chloride 104 ml @ 208 mls/hr Q8H IV Last administered on 02/25/17 10:50; Start 02/18/17 at 10:00; Stop 02/25/17 at 15:09; Status DC Pharmacy Profile Note (Vancomycin Consult Pharmacy) 0 ml @ 0 mls/hr UNSCH OTHER ; Start 02/18/17 at 02:30; Stop 02/25/17 at 15:09; Status DC Dextrose (D50w (Vial) Inj) 25 ml UNSCH PRN IV PUSH HYPOGLYCEMIA-SEE COMMENTS; Start 02/18/17 at 02:30 Glucagon (Glucagon Inj) 1 mg UNSCH PRN OTHER HYPOGLYCEMIA-SEE COMMENTS; Start 02/18/17 at 02:30 Insulin Aspart (NovoLOG SUPPLEMENTAL SCALE) 1 ACHS SLIDING SCALE SQ Last administered on 03/10/17 20:34; Start 02/18/17 at 07:00 Alprazolam (Xanax) 0.5 mg Q8H PRN PO ANXIETY Last administered on 03/10/17 22: 44; Start 02/18/17 at 02:30 Baclofen (Lioresal) 10 mg TID PRN PO MUSCLE SPASM Last administered on 15:17; Start 02/18/17 at 02:30 Budesonide/ Formoterol Fumarate (Symbicort 160-4.5 Inh) 2 puff Q12HR INH Last administered on 03/10/17 20:37; Start 02/18/17 at 09:00 Digoxin (Lanoxin) 0.125 mg DAILY PO Last administered on 03/10/17 09:46; Start 02/18/17 at 09:00 Hydrochlorothiazide (Hydrodiuril) 25 mg DAILY PO Last administered on 02/25/17 08:31; Start 02/18/17 at 09:00; Stop 02/26/17 at 14:29; Status DC Acetaminophen (Tylenol) 650 mg ONCE ONCE PO Last administered on 02/18/17 02: 42; Start 02/18/17 at 02:45; Stop 02/18/17 at 02:46; Status DC Albuterol/ Ipratropium 1 ampule 1 ampule Q2HR NEB PRN NEB SOB/WHEEZING Last administered on 03/04/17 08:17; Start 02/18/17 at 05:30; Stop 03/04/17 at 09:55 ; Status DC Vancomycin HCl/ Sodium Chloride (Vancomycin Inj/ NS 250 ml Inj) 250 ml @ 250 mls/hr Q12H IV Last administered on 02/20/17 11:39; Start 02/18/17 at 11:00; Stop 02/20/17 at 15:06; Status DC Miscellaneous Information SPECIFIC LAB TO BE DRAWN:VANCOMY... ONCE ONCE .XX Last administered on 02/19/17 10:45; Start 02/19/17 at 10:45; Stop 02/19/17 at 10: 46; Status DC Sodium Chloride (NS 1000 ml Inj) 1,000 ml @ 42 mls/hr [id number] IV Last administered on 02/24/17 12:36; Start 02/18/17 at 15:30; Stop 02/25/17 at 12:44; Status DC Hydromorphone HCl (Dilaudid Pf Inj) 0.5 mg Q4H PRN IV PUSH BREAKTHROUGH PAIN Last administered on 03/11/17 05:58; Start 02/18/17 at 16:00 Acetaminophen/ Hydrocodone Bitart ([place] 10-325 Mg) 1 tab Q4H PRN PO PAIN SCALE 4 TO 10 Last administered on 02/18/17 16:33; Start 02/18/17 at 16:00; Stop 02/18/17 at 17:08; Status DC Oxycodone/ Acetaminophen (Percocet 10-325 Mg) 1 tab Q4H PRN PO PAIN SCALE 4 TO 10 Last administered on 03/03/17 08:46; Start 02/18/17 at 20:00; Stop 03/03/17 at 11:16; Status DC Potassium Chloride 40 meq 40 meq ONCE ONCE PO Last administered on 02/18/17 18:05; Start 02/18/17 at 17:15; Stop 02/18/17 at 17:21; Status DC Sodium Phosphate/ Sodium Chloride (Sodium Phosphate Inj/NS Inj) 155 ml @ 38.75 mls/ hr ONCE ONCE IV Last administered on 02/18/17 21:00; Start 02/18/17 at 17:15; Stop 02/18/17 at 21:14; Status DC Albuterol/ Ipratropium (Duoneb Neb) 1 ampule Q6HR NEB NEB Last administered on 02/22/17 16:03; Start 02/18/17 at 18:00; Stop 02/22/17 at 18:00; Status DC Guaifenesin (Mucinex Er) 600 mg BID PO Last administered on 03/10/17 20:22; Start 02/18/17 at 21:00 Acetaminophen/ Butalbital/ Caffeine (Fioricet 325-50-40) 1 tab Q8H PRN PO HEADACHE Last administered on 03/10/17 16:19; Start 02/19/17 at 09:15 Potassium Chloride (KCl) 40 meq ONCE ONCE PO Last administered on 02/19/17 10: 50; Start 02/19/17 at 09:30; Stop 02/19/17 at 09:31; Status DC Potassium Chloride 20 meq 20 meq ONCE ONCE PO Last administered on 02/19/17 10 :50; Start 02/19/17 at 11:30; Stop 02/19/17 at 11:31; Status DC Vancomycin HCl/ Sodium Chloride (Vancomycin Inj/ NS 250 ml Inj) 262.5 ml @ 250 mls/hr Q12H IV Last administered on 02/21/17 22:40; Start 02/20/17 at 23:00; Stop 02/22/17 at 12:47; Status DC Miscellaneous Information SPECIFIC LAB TO BE DRAWN:VANCOMYCIN TROUGH DATE TO... ONCE ONCE .XX Last administered on 02/22/17 10:45; Start 02/22/17 at 10:45; Stop 02/22/17 at 10:46; Status DC Mupirocin (Bactroban Nasal 2% Oint) 1 applic BID EACH NARE Last administered on 03/10/17 20:22; Start 02/21/17 at 21:00 Heparin Sodium (Porcine) 5000 units 5,000 units Q8HR SQ Last administered on 06:30; Start 02/22/17 at 14:00; Stop 02/27/17 at 09:41; Status DC Vancomycin HCl 1000 mg/Sodium Chloride 250 ml @ 250 mls/hr Q12H IV ; Start 02/22 at 16:00; Stop 02/22/17 at 18:08; Status DC Vancomycin HCl/ Sodium Chloride (Vancomycin Inj/ NS 250 ml Inj) 250 ml @ 250 mls/hr Q12H IV Last administered on 02/25/17 08:30; Start 02/22/17 at 20:00; Stop 02/25/17 at 15:09; Status DC Albuterol/ Ipratropium (Duoneb Neb) 1 ampule Q4HR NEB NEB Last administered on 03/02/17 11:49; Start 02/23/17 at 12:00; Stop 03/02/17 at 14:29; Status DC Warfarin Sodium (Coumadin) 10 mg DAILY PO ; Start 02/24/17 at 14:00; Stop at 14:00; Status DC Warfarin Sodium (Coumadin) 10 mg DAILY PO Last administered on 02/24/17 16:23; Start 02/24/17 at 16:00; Stop 02/25/17 at 07:45; Status DC Warfarin Sodium (Coumadin) 10 mg DAILY@1600 PO Last administered on 02/26/17 17 :26; Start 02/25/17 at 16:00; Stop 02/27/17 at 09:41; Status DC Patient Medication Teaching (Coumadin Booklet) 1 ONCE ONCE .XX Last administered on 02/25/17 16:07; Start 02/25/17 at 16:00; Stop 02/25/17 at 16:01; Status DC Clindamycin HCl 450 mg 450 mg Q6HR PO Last administered on 02/28/17 06:11; Start 02/25/17 at 18:00; Stop 02/28/17 at 10:12; Status DC Sodium Chloride 1,000 ml @ 84 mls/hr [id number] IV Last administered on 12:40; Start 02/26/17 at 14:30 Pharmacy Profile Note (Coumadin Consult Pharmacy) 0 ml @ 0 mls/hr UNSCH OTHER ; Start 02/26/17 at 14:30; Stop 03/03/17 at 16:15; Status DC Warfarin Sodium (Coumadin) 2 mg ONCE PO ; Start 02/27/17 at 16:00; Stop 02/27/17 at 16:00; Status DC Midazolam HCl (Versed Inj) 5 mg STK-MED ONCE .ROUTE ; Start 02/27/17 at 14:36; Stop 02/27/17 at 14:37; Status DC Fentanyl Citrate (fentaNYL INJ) 250 mcg STK-MED ONCE .ROUTE ; Start 02/27/17 at 14:36; Stop 02/27/17 at 14:37; Status DC Vancomycin HCl 1000 mg 1,000 mg STK-MED ONCE .ROUTE ; Start 02/27/17 at 15:10; Stop 02/27/17 at 15:11; Status DC Sodium Chloride 250 ml @ As Directed STK-MED ONCE .ROUTE ; Start 02/27/17 at 15: 11; Stop 02/27/17 at 15:12; Status DC Pharmacy Profile Note 0 ml @ 0 mls/hr UNSCH OTHER ; Start 02/28/17 at 10:15 Vancomycin HCl/ Sodium Chloride (Vancomycin Inj/ NS 500 ml Inj) 515 ml @ 250 mls/hr Q12H IV Last administered on 03/07/17 03:34; Start 02/28/17 at 13:00; Stop 03/07/17 at 08:29; Status DC Miscellaneous Information SPECIFIC LAB TO BE DRAWN:VANCOMYCIN TROUGH DATE TO... ONCE ONCE .XX Last administered on 03/02/17 00:45; Start 03/02/17 at 00:45; Stop 03/02/17 at 00:46; Status DC Miscellaneous Information SPECIFIC LAB TO BE DRAWN:VANCO TROUGH DATE TO BE DR... ONCE ONCE .XX Last administered on 03/04/17 01:35; Start 03/04/17 at 00 :45; Stop 03/04/17 at 00:46; Status DC Oxycodone/ Acetaminophen (Percocet 10-325 Mg) 1 tab Q3HR PRN PO PAIN SCALE 4 TO 10 Last administered on 03/11/17 02:59; Start 03/03/17 at 11:20 Ipratropium [place] (Atrovent Neb) 0.5 mg Q4HR NEB NEB Last administered on 07:55; Start 03/04/17 at 12:00 Miscellaneous Information SPECIFIC LAB TO BE DRAWN:VANCOMYCIN TROUGH DATE TO... ONCE ONCE .XX Last administered on 03/07/17 00:45; Start 03/07/17 at 00:45; Stop 03/07/17 at 00:46; Status DC Vancomycin HCl/ Sodium Chloride (Vancomycin Inj/ NS 500 ml Inj) 515 ml @ 250 mls/hr Q18H IV Last administered on 03/10/17 03:41; Start 03/07/17 at 21:00; Stop 03/10/17 at 11:12; Status DC Miscellaneous Information SPECIFIC LAB TO BE DRAWN:VANCOMYCIN TROUGH DATE TO... ONCE ONCE .XX Last administered on 03/10/17 03:41; Start 03/10/17 at 02:45; Stop 03/10/17 at 02:46; Status DC Vancomycin HCl/ Sodium Chloride (Vancomycin Inj/ NS 500 ml Inj) 517.5 ml @ 250 mls/hr Q18H IV Last administered on 03/10/17 20:37; Start 03/10/17 at 21:00 Miscellaneous Information SPECIFIC LAB TO BE [facility]... ONCE ONCE .XX ; Start 03/13 at 02:45; Stop 03/13/17 at 02:46 Lidocaine HCl (Xylocaine 1% Inj (50 ml)) 50 ml STK-MED ONCE .ROUTE ; Start 03/10 at 17:06; Stop 03/10/17 at 17:07; Status DC Lidocaine HCl (Xylocaine 1% Inj (50 ml)) 50 ml ONCE ONCE INFIL ; Start at 17:15; Stop 03/10/17 at 17:16; Status DC A/P Assessment and Plan A/P 1. Questionable Cellulitis and Abscess in the site of Drain post Meningioma removal from Brain stem / partially treated meningitis blood cultures negative in 5 days. continue IV Vancomycin- possible [employer] shunt placement if fluid reaccumulation occurs and when cleared by ID. ID and neurosurgery following. 2. DM II continue sliding scale, continue Insulin. Hemoglobin A1C 6.3 3. COPD to continue Bronchodilator, Mucolytic and incentive spirometry. scheduled Ipratropium bromide 4. Hepatitis C by history 5. Hypertension controlled. 6. Traumatic Brain injury history of 7. Seizure disorder to continue Home medicines 8. Atrial Fibrillation at this time sinus rhythm, warfarin on hold by Neurosurgery. DVT prophylaxis with SCD's. Pushpa Culver MD March 11, 2017 08:23
[2017-03-11] MEDS: BUDESONIDE-FORMOTEROL 160/4.5 MCG INHALER INH SCH ×2 (09:01→20:38)
[2017-03-11] MEDS: SODIUM CHLORIDE 0.9% FLUSH 10 ML FLUSH IV FLUSH SCH ×2 (09:01→20:38)
[2017-03-11] MEDS: MUPIROCIN 2% OINT 1 APPLIC/GM SYR EACH NARE SCH ×2 (09:01→20:37)
[2017-03-11] MEDS: DIGOXIN 0.125 MG TAB PO SCH (09:02)
[2017-03-11] MEDS: guaiFENesin E.R. 600 MG TAB PO SCH ×2 (09:02→20:37)
[2017-03-11] MEDS: SODIUM CHLOR 0.9% 1000 ML INJ 1,000 ML IV SCH (12:51)
[2017-03-11] MEDS: VANCOMYCIN INJ 1,750 MG in SODIUM CHLORID 0.9% 500 ML INJ 500 ML IV SCH (15:23)
--- NOTE | 2017-03-11 16:46 | HHI.NSPN ---
History Chief Complaint: headaches Interval History 61-year-old male underwent suboccipital-C1 procedure for meningioma at [facility]. Previously seen following surgery at [facility] emergency room for neurosurgery evaluation and referred back to [facility] for one night with an aspiration of a postoperative seroma or pseudomeningocele. Now presents to [facility] with persistent seroma, mild cellulitis. 03/10/2017: Small amount of persistent CSF leakage from the drain site. Site sutured using sterile technique Exam Results Vital Signs Date Time Temp Pulse Resp B/P Pulse Ox O2 Delivery O2 Flow Rate FiO2 03/11/17 15:57 97.8 66 20 139/86 95 03/11/17 08:55 Nasal Cannula 2.00 Intake and Output 03/10/17 03/10/17 03/11/17 08:00 16:00 00:00 Intake Total 480 ml Balance 480 ml Physical Examination Awake and alert oriented conversant and appropriate Speech is clear Minimal neck tenderness No nuchal rigidity Edema at the right suboccipital region continues to diminish Moderate residual erythema at the skin site, but not increased compared to the past couple of days. Lumbar subarachnoid drain site dry without significant erythema or tenderness. Medical Decision Making Impression and Plan Impression: 1. right occipital postoperative subcutaneous fluid collection. Significantly improved following subarachnoid drain. Plan: Continue to observe the wound site. If no recurrence of fluid collection at the suboccipital wound site by 03/12/17, then he could be discharged home from a neurosurgical standpoint with outpatient antibiotics per ID recommendations Jose De Jesus Perez MD March 11, 2017 16:46
[2017-03-11] MEDS: ALPRAZolam 0.5 MG TAB PO PRN (20:37)
[2017-03-12] VITALS (9 sets, daily range): BP systolic 120–136; BP diastolic 64–80; PULSE 58–72; RESP 17–20; TEMP 96.1–98.1; O2SAT 92–98
[2017-03-12] MEDS: SODIUM CHLOR 0.9% 1000 ML INJ 1,000 ML IV SCH ×2 (00:15→14:24)
[2017-03-12] MEDS: HYDROmorphone HCL PF 1 MG/ML VIAL IV PUSH PRN ×4 (00:22→21:37)
[2017-03-12] MEDS: RESP: IPRATROPIUM 0.5 MG/2.5 ML NEB NEB SCH ×7 (02:54→23:39)
[2017-03-12] MEDS: oxyCODONE/ACETAMINOPHEN 10 MG/325 MG TAB PO PRN ×4 (03:00→18:31)
[2017-03-12] MEDS: INSULIN ASPART SUPPLEMENTAL SCALE SQ SCH ×4 (06:01→21:00)
--- NOTE | 2017-03-12 08:24 | HHI.PR ---
Subjective Remarks resting comfortably with no distress. no fever. no new complaints. Objective Vitals Vital Signs Date Time Temp Pulse Resp B/P Pulse Ox O2 Delivery O2 Flow Rate FiO2 03/12/17 08:08 92 Nasal Cannula 2.00 03/12/17 06:29 20 03/12/17 06:22 Nasal Cannula 2.00 03/12/17 06:22 98.1 60 18 127/70 96 03/12/17 04:00 20 03/12/17 01:06 96.4 66 18 120/74 97 03/12/17 01:06 Nasal Cannula 2.00 03/11/17 21:32 96.8 72 21 122/78 94 03/11/17 21:32 Nasal Cannula 2.00 03/11/17 19:42 Nasal Cannula 2.00 03/11/17 15:57 97.8 66 20 139/86 95 03/11/17 12:31 97.3 62 20 112/72 97 03/11/17 08:55 Nasal Cannula 2.00 I/O 03/11/17 03/11/17 03/11/17 03/12/17 03/12/17 03/12/17 07:00 15:00 23:00 07:00 15:00 23:00 Intake Total 650 ml 360 ml Output Total 1200 ml Balance 650 ml 360 ml -1200 ml Intake Oral 650 ml 360 ml Output Urine Total 1200 ml # Voids 4 2 # Bowel Movements 1 Result Diagram: 03/11/17 0653 Imaging Last Impressions Lumbar Puncture Fluoroscopy 02/27/17 1400 Signed Impressions: Service Date/Time: Monday, February 27, 2017 14:12 - CONCLUSION: Uncomplicated lumbar drain placement as above. Angel Dimas MD [facility] [place] Interventional Procedure 02/27/17 0000 Signed Impressions: Service Date/Time: Monday, February 27, 2017 14:36 - CONCLUSION: Uncomplicated ultrasound guided venous access. Angel Dimas MD Chest X-Ray 02/26/17 0000 Signed Impressions: Service Date/Time: Sunday, February 26, 2017 09:33 - CONCLUSION: No acute disease. Javon Balderas MD Neck CT 02/18/17 0000 Signed Impressions: Service Date/Time: Saturday, February 18, 2017 00:58 - CONCLUSION: 1. Right occipital craniotomy changes with an associated fluid collection as above, thought to most likely be a seroma. 2. The attempted fixation of the craniotomy bone fragment has failed. The bone fragment and 3 malleable plates are displaced into the fluid collection. There is a loose screw but the 3 plates appear attached to the craniotomy bone fragment by at least one screw each. Beau Valle MD Cervical Spine MRI 02/17/17 0000 Signed Impressions: Service Date/Time: Friday, February 17, 2017 23:37 - CONCLUSION: 1. Limited, abbreviated study. Patient refused further imaging before axial images were obtained and before contrast could be given. 2. Postop right occipital craniotomy with a fairly large fluid collection in the craniotomy defect and overlying soft tissues that is nonspecific but most likely a seroma. No definite communication with the CSF spaces. Mild mass effect on the right side of the cerebellum. Other than interdigitated mildly between the posterior processes of C1 and C2, the fluid collection does not significantly impact the cervical spine. 3. Multilevel cervical spine degenerative changes as above. There are mild degrees of spinal stenosis without cord compression or cord signal abnormality and multiple levels of upper moderate foraminal stenosis. Please see above. Beau Valle MD Brain MRI 02/17/17 0000 Signed Impressions: Service Date/Time: Friday, February 17, 2017 23:37 - CONCLUSION: 1. Limited, abbreviated study. Please see above. 2. Right occipital craniotomy defect with a fluid collection, presumably a seroma. 3. No bleed or evidence of infarct. 4. Sinus disease. Beau Valle MD Objective Remarks GENERAL: This is a well-nourished, well-developed patient, in no apparent distress. Head; mild swelling and erythema of the right suboccipital region. CARDIOVASCULAR: Regular rate and regular rhythm without murmurs, gallops, or rubs. RESPIRATORY: Clear to auscultation. Breath sounds equal bilaterally. No wheezes , rales, or rhonchi. GASTROINTESTINAL: Abdomen soft, non-tender, nondistended. Normal, active bowel sounds MUSCULOSKELETAL: Extremities without clubbing, cyanosis, or edema. NEURO: Alert & Oriented x4 to person, place, time, situation. Moves all ext x4 Procedures LP Medications and IVs Current Medications Sodium Chloride (NS 1000 ml Inj) 1,000 ml @ 999 mls/hr BOLUS ONCE IV Last administered on 4/29/17at 21:40; Start 02/17/17 at 21:15; Stop 02/17/17 at 22:15 ; Status DC Ondansetron HCl (Zofran Inj) 4 mg ONCE ONCE IV PUSH Last administered on 21:40; Start 02/17/17 at 21:15; Stop 02/17/17 at 21:16; Status DC Albuterol/ Ipratropium (Duoneb Neb) 1 ampule Q15M INH Last administered on 02/17 21:29; Start 02/17/17 at 21:15; Stop 02/17/17 at 21:31; Status DC Morphine Sulfate 4 mg 4 mg ONCE ONCE IV PUSH Last administered on 02/17/17 21 :40; Start 02/17/17 at 21:30; Stop 02/17/17 at 21:31; Status DC Vancomycin HCl/ Sodium Chloride (Vancomycin Inj/ NS 250 ml Inj) 250 ml @ 250 mls/hr ONCE ONCE IV Last administered on 02/17/17 22:34; Start 02/17/17 at 22 :30; Stop 02/17/17 at 23:29; Status DC Potassium Chloride 40 meq 40 meq ONCE ONCE PO Last administered on 02/17/17 22:41; Start 02/17/17 at 22:30; Stop 02/17/17 at 22:31; Status DC Potassium Chloride 100 ml @ 100 mls/hr BOLUS ONCE IV Last administered on 00:35; Start 02/17/17 at 22:30; Stop 02/17/17 at 23:29; Status DC Clindamycin Phosphate 600 mg/ Sodium Chloride 104 ml @ 208 mls/hr ONCE ONCE IV Last administered on 02/18/17 02:23; Start 02/17/17 at 23:00; Stop at 23:29; Status DC Sodium Chloride (NS 500 ml Inj) 500 ml @ 500 mls/hr BOLUS ONCE IV Last administered on 02/18/17 00:35; Start 02/17/17 at 23:15; Stop 02/18/17 at 00:14 ; Status DC Hydromorphone HCl (Dilaudid Pf Inj) 0.5 mg ONCE ONCE IV PUSH Last administered on 02/17/17 23:27; Start 02/17/17 at 23:15; Stop 02/17/17 at 23:16 ; Status DC Iohexol (Omnipaque 350 Inj) 70 ml STK-MED ONCE IV Last administered on 01:05; Start 02/18/17 at 01:05; Stop 02/18/17 at 01:06; Status DC Sodium Chloride (NS Flush) 2 ml BID IV FLUSH ; Start 02/18/17 at 09:00; Stop at 09:00; Status DC Sodium Chloride (NS Flush) 2 ml UNSCH PRN IVF FLUSH AFTER USING IV ACCESS; Start 02/18/17 at 02:30; Stop 02/18/17 at 02:39; Status DC Sodium Chloride (NS Flush) 2 ml UNSCH PRN IV FLUSH FLUSH AFTER USING IV ACCESS Last administered on 03/11/17 05:58; Start 02/18/17 at 02:30 Sodium Chloride (NS Flush) 2 ml BID IV FLUSH Last administered on 03/11/17 20: 38; Start 02/18/17 at 09:00 Acetaminophen (Tylenol) 650 mg Q4H PRN PO TEMP > 100.4 Last administered on 08:36; Start 02/18/17 at 02:30 Ondansetron HCl (Zofran Inj) 4 mg Q6H PRN IVP NAUSEA OR VOMITING; Start at 02:30 Naloxone HCl 0.4 mg 0.4 mg UNSCH PRN IV SEE LABEL COMMENTS; Start 02/18/17 at 02:30 Clindamycin Phosphate 600 mg/ Sodium Chloride 104 ml @ 208 mls/hr Q8H IV Last administered on 02/25/17 10:50; Start 02/18/17 at 10:00; Stop 02/25/17 at 15:09; Status DC Pharmacy Profile Note (Vancomycin Consult Pharmacy) 0 ml @ 0 mls/hr UNSCH OTHER ; Start 02/18/17 at 02:30; Stop 02/25/17 at 15:09; Status DC Dextrose (D50w (Vial) Inj) 25 ml UNSCH PRN IV PUSH HYPOGLYCEMIA-SEE COMMENTS; Start 02/18/17 at 02:30 Glucagon (Glucagon Inj) 1 mg UNSCH PRN OTHER HYPOGLYCEMIA-SEE COMMENTS; Start 02/18/17 at 02:30 Insulin Aspart (NovoLOG SUPPLEMENTAL SCALE) 1 ACHS SLIDING SCALE SQ Last administered on 03/11/17 12:40; Start 02/18/17 at 07:00 Alprazolam (Xanax) 0.5 mg Q8H PRN PO ANXIETY Last administered on 03/11/17 20: 37; Start 02/18/17 at 02:30 Baclofen (Lioresal) 10 mg TID PRN PO MUSCLE SPASM Last administered on 15:17; Start 02/18/17 at 02:30 Budesonide/ Formoterol Fumarate (Symbicort 160-4.5 Inh) 2 puff Q12HR INH Last administered on 03/11/17 20:38; Start 02/18/17 at 09:00 Digoxin (Lanoxin) 0.125 mg DAILY PO Last administered on 03/11/17 09:02; Start 02/18/17 at 09:00 Hydrochlorothiazide (Hydrodiuril) 25 mg DAILY PO Last administered on 02/25/17 08:31; Start 02/18/17 at 09:00; Stop 02/26/17 at 14:29; Status DC Acetaminophen (Tylenol) 650 mg ONCE ONCE PO Last administered on 02/18/17 02: 42; Start 02/18/17 at 02:45; Stop 02/18/17 at 02:46; Status DC Albuterol/ Ipratropium 1 ampule 1 ampule Q2HR NEB PRN NEB SOB/WHEEZING Last administered on 03/04/17 08:17; Start 02/18/17 at 05:30; Stop 03/04/17 at 09:55 ; Status DC Vancomycin HCl/ Sodium Chloride (Vancomycin Inj/ NS 250 ml Inj) 250 ml @ 250 mls/hr Q12H IV Last administered on 02/20/17 11:39; Start 02/18/17 at 11:00; Stop 02/20/17 at 15:06; Status DC Miscellaneous Information SPECIFIC LAB TO BE DRAWN:VANCOMY... ONCE ONCE .XX Last administered on 02/19/17 10:45; Start 02/19/17 at 10:45; Stop 02/19/17 at 10: 46; Status DC Sodium Chloride (NS 1000 ml Inj) 1,000 ml @ 42 mls/hr [id number] IV Last administered on 02/24/17 12:36; Start 02/18/17 at 15:30; Stop 02/25/17 at 12:44; Status DC Hydromorphone HCl (Dilaudid Pf Inj) 0.5 mg Q4H PRN IV PUSH BREAKTHROUGH PAIN Last administered on 03/12/17 05:59; Start 02/18/17 at 16:00 Acetaminophen/ Hydrocodone Bitart ([place] 10-325 Mg) 1 tab Q4H PRN PO PAIN SCALE 4 TO 10 Last administered on 02/18/17 16:33; Start 02/18/17 at 16:00; Stop 02/18/17 at 17:08; Status DC Oxycodone/ Acetaminophen (Percocet 10-325 Mg) 1 tab Q4H PRN PO PAIN SCALE 4 TO 10 Last administered on 03/03/17 08:46; Start 02/18/17 at 20:00; Stop 03/03/17 at 11:16; Status DC Potassium Chloride 40 meq 40 meq ONCE ONCE PO Last administered on 02/18/17 18:05; Start 02/18/17 at 17:15; Stop 02/18/17 at 17:21; Status DC Sodium Phosphate/ Sodium Chloride (Sodium Phosphate Inj/NS Inj) 155 ml @ 38.75 mls/ hr ONCE ONCE IV Last administered on 02/18/17 21:00; Start 02/18/17 at 17:15; Stop 02/18/17 at 21:14; Status DC Albuterol/ Ipratropium (Duoneb Neb) 1 ampule Q6HR NEB NEB Last administered on 02/22/17 16:03; Start 02/18/17 at 18:00; Stop 02/22/17 at 18:00; Status DC Guaifenesin (Mucinex Er) 600 mg BID PO Last administered on 03/11/17 20:37; Start 02/18/17 at 21:00 Acetaminophen/ Butalbital/ Caffeine (Fioricet 325-50-40) 1 tab Q8H PRN PO HEADACHE Last administered on 03/10/17 16:19; Start 02/19/17 at 09:15 Potassium Chloride (KCl) 40 meq ONCE ONCE PO Last administered on 02/19/17 10: 50; Start 02/19/17 at 09:30; Stop 02/19/17 at 09:31; Status DC Potassium Chloride 20 meq 20 meq ONCE ONCE PO Last administered on 02/19/17 10 :50; Start 02/19/17 at 11:30; Stop 02/19/17 at 11:31; Status DC Vancomycin HCl/ Sodium Chloride (Vancomycin Inj/ NS 250 ml Inj) 262.5 ml @ 250 mls/hr Q12H IV Last administered on 02/21/17 22:40; Start 02/20/17 at 23:00; Stop 02/22/17 at 12:47; Status DC Miscellaneous Information SPECIFIC LAB TO BE DRAWN:VANCOMYCIN TROUGH DATE TO... ONCE ONCE .XX Last administered on 02/22/17 10:45; Start 02/22/17 at 10:45; Stop 02/22/17 at 10:46; Status DC Mupirocin (Bactroban Nasal 2% Oint) 1 applic BID EACH NARE Last administered on 03/11/17 20:37; Start 02/21/17 at 21:00 Heparin Sodium (Porcine) 5000 units 5,000 units Q8HR SQ Last administered on 06:30; Start 02/22/17 at 14:00; Stop 02/27/17 at 09:41; Status DC Vancomycin HCl 1000 mg/Sodium Chloride 250 ml @ 250 mls/hr Q12H IV ; Start 02/22 at 16:00; Stop 02/22/17 at 18:08; Status DC Vancomycin HCl/ Sodium Chloride (Vancomycin Inj/ NS 250 ml Inj) 250 ml @ 250 mls/hr Q12H IV Last administered on 02/25/17 08:30; Start 02/22/17 at 20:00; Stop 02/25/17 at 15:09; Status DC Albuterol/ Ipratropium (Duoneb Neb) 1 ampule Q4HR NEB NEB Last administered on 03/02/17 11:49; Start 02/23/17 at 12:00; Stop 03/02/17 at 14:29; Status DC Warfarin Sodium (Coumadin) 10 mg DAILY PO ; Start 02/24/17 at 14:00; Stop at 14:00; Status DC Warfarin Sodium (Coumadin) 10 mg DAILY PO Last administered on 02/24/17 16:23; Start 02/24/17 at 16:00; Stop 02/25/17 at 07:45; Status DC Warfarin Sodium (Coumadin) 10 mg DAILY@1600 PO Last administered on 02/26/17 17 :26; Start 02/25/17 at 16:00; Stop 02/27/17 at 09:41; Status DC Patient Medication Teaching (Coumadin Booklet) 1 ONCE ONCE .XX Last administered on 02/25/17 16:07; Start 02/25/17 at 16:00; Stop 02/25/17 at 16:01; Status DC Clindamycin HCl 450 mg 450 mg Q6HR PO Last administered on 02/28/17 06:11; Start 02/25/17 at 18:00; Stop 02/28/17 at 10:12; Status DC Sodium Chloride 1,000 ml @ 84 mls/hr [id number] IV Last administered on 12:40; Start 02/26/17 at 14:30 Pharmacy Profile Note (Coumadin Consult Pharmacy) 0 ml @ 0 mls/hr UNSCH OTHER ; Start 02/26/17 at 14:30; Stop 03/03/17 at 16:15; Status DC Warfarin Sodium (Coumadin) 2 mg ONCE PO ; Start 02/27/17 at 16:00; Stop 02/27/17 at 16:00; Status DC Midazolam HCl (Versed Inj) 5 mg STK-MED ONCE .ROUTE ; Start 02/27/17 at 14:36; Stop 02/27/17 at 14:37; Status DC Fentanyl Citrate (fentaNYL INJ) 250 mcg STK-MED ONCE .ROUTE ; Start 02/27/17 at 14:36; Stop 02/27/17 at 14:37; Status DC Vancomycin HCl 1000 mg 1,000 mg STK-MED ONCE .ROUTE ; Start 02/27/17 at 15:10; Stop 02/27/17 at 15:11; Status DC Sodium Chloride 250 ml @ As Directed STK-MED ONCE .ROUTE ; Start 02/27/17 at 15: 11; Stop 02/27/17 at 15:12; Status DC Pharmacy Profile Note 0 ml @ 0 mls/hr UNSCH OTHER ; Start 02/28/17 at 10:15 Vancomycin HCl/ Sodium Chloride (Vancomycin Inj/ NS 500 ml Inj) 515 ml @ 250 mls/hr Q12H IV Last administered on 03/07/17 03:34; Start 02/28/17 at 13:00; Stop 03/07/17 at 08:29; Status DC Miscellaneous Information SPECIFIC LAB TO BE DRAWN:VANCOMYCIN TROUGH DATE TO... ONCE ONCE .XX Last administered on 03/02/17 00:45; Start 03/02/17 at 00:45; Stop 03/02/17 at 00:46; Status DC Miscellaneous Information SPECIFIC LAB TO BE DRAWN:VANCO TROUGH DATE TO BE DR... ONCE ONCE .XX Last administered on 03/04/17 01:35; Start 03/04/17 at 00 :45; Stop 03/04/17 at 00:46; Status DC Oxycodone/ Acetaminophen (Percocet 10-325 Mg) 1 tab Q3HR PRN PO PAIN SCALE 4 TO 10 Last administered on 03/12/17 03:00; Start 03/03/17 at 11:20 Ipratropium [place] (Atrovent Neb) 0.5 mg Q4HR NEB NEB Last administered on 08:08; Start 03/04/17 at 12:00 Miscellaneous Information SPECIFIC LAB TO BE DRAWN:VANCOMYCIN TROUGH DATE TO... ONCE ONCE .XX Last administered on 03/07/17 00:45; Start 03/07/17 at 00:45; Stop 03/07/17 at 00:46; Status DC Vancomycin HCl/ Sodium Chloride (Vancomycin Inj/ NS 500 ml Inj) 515 ml @ 250 mls/hr Q18H IV Last administered on 03/10/17 03:41; Start 03/07/17 at 21:00; Stop 03/10/17 at 11:12; Status DC Miscellaneous Information SPECIFIC LAB TO BE DRAWN:VANCOMYCIN TROUGH DATE TO... ONCE ONCE .XX Last administered on 03/10/17 03:41; Start 03/10/17 at 02:45; Stop 03/10/17 at 02:46; Status DC Vancomycin HCl/ Sodium Chloride (Vancomycin Inj/ NS 500 ml Inj) 517.5 ml @ 250 mls/hr Q18H IV Last administered on 03/11/17 15:23; Start 03/10/17 at 21:00 Miscellaneous Information SPECIFIC LAB TO BE ... ONCE ONCE .XX ; Start 03/13 at 02:45; Stop 03/13/17 at 02:46 Lidocaine HCl (Xylocaine 1% Inj (50 ml)) 50 ml STK-MED ONCE .ROUTE ; Start 03/10 at 17:06; Stop 03/10/17 at 17:07; Status DC Lidocaine HCl (Xylocaine 1% Inj (50 ml)) 50 ml ONCE ONCE INFIL ; Start at 17:15; Stop 03/10/17 at 17:16; Status DC A/P Assessment and Plan A/P 1. Questionable Cellulitis and Abscess in the site of Drain post Meningioma removal from Brain stem / partially treated meningitis blood cultures negative in 5 days. continue IV Vancomycin- ID and neurosurgery following. 2. DM II continue sliding scale, continue Insulin. Hemoglobin A1C 6.3 3. COPD to continue Bronchodilator, Mucolytic and incentive spirometry. scheduled Ipratropium bromide 4. Hepatitis C by history 5. Hypertension controlled. 6. history of Traumatic Brain injury 7. Seizure disorder to continue Home medicines 8. Atrial Fibrillation at this time sinus rhythm- will resume when ok with neurosurgery. DVT prophylaxis with SCD's. Discharge Planning when cleared by ID and neurosurgery. Pushpa Culver MD March 12, 2017 08:24
[2017-03-12] MEDS ORDERED: OXYC1TAB36 PO (08:26)
[2017-03-12] MEDS: DIGOXIN 0.125 MG TAB PO SCH (09:38)
[2017-03-12] MEDS: guaiFENesin E.R. 600 MG TAB PO SCH ×2 (09:39→21:48)
[2017-03-12] MEDS: MUPIROCIN 2% OINT 1 APPLIC/GM SYR EACH NARE SCH ×2 (09:40→21:48)
[2017-03-12] MEDS: SODIUM CHLORIDE 0.9% FLUSH 10 ML FLUSH IV FLUSH SCH ×2 (09:40→21:37)
[2017-03-12] MEDS: BUDESONIDE-FORMOTEROL 160/4.5 MCG INHALER INH SCH ×2 (09:41→21:00)
[2017-03-12] MEDS: VANCOMYCIN INJ 1,750 MG in SODIUM CHLORID 0.9% 500 ML INJ 500 ML IV SCH (09:44)
--- NOTE | 2017-03-12 14:32 | HHI.IDPN ---
Subjective Subjective Remarks 61-year-old gentleman with history of a right retromastoid approach for resection of meningioma done approximately [address] Cartagena at [facility]. Patient states that a few days after surgery he developed swelling around the surgical area. The swelling and pain has gotten progressively worse within the last few days reason why he came to the emergency department last night for evaluation. MRI of the cervical spine from 02/17/2017 showed evidence of the right occipital craniotomy and a deflated collection in the craniotomy defect and overlying the soft tissues and the right upper cervical region. The fluid collection is approximately 476 cm in size and does not clearly communicate with the CSF spaces. The CT of the cervical spine also shows right hemilaminectomy defect at the C1 level and the right C1 arch and plates are loose within the fluid collection. Patient denies any neurological deficits. Started on empiric vancomycin and clindamycin. Overnight events reviewed No fevers overnight No more headaches. Post auricular swelling almost resolved. Still has flaking and erythema with chronic skin changes. No N/V No diarrhea No neuro deficit. Antibiotics Vanco IV Lines Line sites with no e.o infection. Past Medical History reviewed. Allergies: Coded Allergies: Penicillin (Verified Allergy, Unknown, 02/17/17) *MDRO Multi-Drug Resistant Organism (Verified Adverse Reaction, Unknown, ) MRSA PCR Screen POSITIVE - 03/10/2016, 02/19/2017 MRSA (sputum) - 03/2016 Objective . Vital Signs Date Time Temp Pulse Resp B/P Pulse Ox O2 Delivery O2 Flow Rate FiO2 03/12/17 12:40 96.7 60 20 123/64 96 03/12/17 09:45 72 03/12/17 08:43 96.1 58 18 121/67 98 03/12/17 08:08 92 Nasal Cannula 2.00 03/12/17 06:29 20 03/12/17 06:22 Nasal Cannula 2.00 03/12/17 06:22 98.1 60 18 127/70 96 03/12/17 04:00 20 03/12/17 01:06 96.4 66 18 120/74 97 03/12/17 01:06 Nasal Cannula 2.00 03/11/17 21:32 96.8 72 21 122/78 94 03/11/17 21:32 Nasal Cannula 2.00 03/11/17 19:42 Nasal Cannula 2.00 03/11/17 15:57 97.8 66 20 139/86 95 03/11/17 03/11/17 03/12/17 15:00 23:00 07:00 Intake Total 360 ml Output Total 1200 ml Balance 360 ml -1200 ml Intake Oral 360 ml Output Urine Total 1200 ml # Voids 2 # Bowel Movements 1 . Laboratory Tests Test 03/11/17 06:53 Creatinine 0.78 MG/DL Estimat Glomerular Filtration 101 ML/MIN Rate Imaging Last Impressions Neck CT 02/18/17 0000 Signed Impressions: Service Date/Time: Saturday, February 18, 2017 00:58 - CONCLUSION: 1. Right occipital craniotomy changes with an associated fluid collection as above, thought to most likely be a seroma. 2. The attempted fixation of the craniotomy bone fragment has failed. The bone fragment and 3 malleable plates are displaced into the fluid collection. There is a loose screw but the 3 plates appear attached to the craniotomy bone fragment by at least one screw each. Beau Valle MD Chest X-Ray 02/17/17 0000 Signed Impressions: Service Date/Time: Friday, February 17, 2017 21:07 - CONCLUSION: Slight bibasilar linear atelectasis. Noé Adams MD Cervical Spine MRI 02/17/17 0000 Signed Impressions: Service Date/Time: Friday, February 17, 2017 23:37 - CONCLUSION: 1. Limited, abbreviated study. Patient refused further imaging before axial images were obtained and before contrast could be given. 2. Postop right occipital craniotomy with a fairly large fluid collection in the craniotomy defect and overlying soft tissues that is nonspecific but most likely a seroma. No definite communication with the CSF spaces. Mild mass effect on the right side of the cerebellum. Other than interdigitated mildly between the posterior processes of C1 and C2, the fluid collection does not significantly impact the cervical spine. 3. Multilevel cervical spine degenerative changes as above. There are mild degrees of spinal stenosis without cord compression or cord signal abnormality and multiple levels of upper moderate foraminal stenosis. Please see above. Beau Valle MD Brain MRI 02/17/17 0000 Signed Impressions: Service Date/Time: Friday, February 17, 2017 23:37 - CONCLUSION: 1. Limited, abbreviated study. Please see above. 2. Right occipital craniotomy defect with a fluid collection, presumably a seroma. 3. No bleed or evidence of infarct. 4. Sinus disease. Beau Valle MD Physical Exam GENERAL: This is a well-nourished, well-developed patient, in no apparent distress. SKIN: No rashes, ecchymoses or lesions. Cool and dry. HEAD: Post auricular swelling almost resolved. Still has flaking and erythema with chronic skin changes. EYES: Pupils equal round and reactive. Extraocular motions intact. No scleral icterus. No injection or drainage. ENT: Nose without bleeding, purulent drainage or septal hematoma. Throat without erythema, tonsillar hypertrophy or exudate. Uvula midline. Airway patent. NECK: Trachea midline. Supple, nontender, no meningeal signs. CARDIOVASCULAR: Regular rate and rhythm without murmurs, gallops, or rubs. RESPIRATORY: Clear to auscultation. Breath sounds equal bilaterally. No wheezes , rales, or rhonchi. GASTROINTESTINAL: Abdomen soft, non-tender, nondistended. MUSCULOSKELETAL: Extremities without clubbing, cyanosis, or edema. NEUROLOGICAL: Awake and alert. Grossly nonfocal Psych cooperative IV line sites with no evidence of infection. Assessment & Plan Remarks Abnormal LP consistent with partially treated meningitis at this point. d/w some hardware was loose from surgery high probability and therefore will treat as discitis and osteomyelitis. s/p meningioma resection at [facility]. COPD, atrial fibrillation on Coumadin, hepatitis C, seizures, traumatic brain injury, diabetes mellitus, hypertension, CHF Recs: Continue Vanco IV (target 15-20) for possible discitis per my discussions with about loose hardware which could be discitis related. [email or web address] patient in presence of Christa case hardener two options: 1. Rehab for IV antibiotic so he does not pay copay. He adamantly refuses to go to rehab. 2. Home with home health (he has copay for this option): will [email or web address] Doss infusions to see if his copay can be 50$ per week as a part of payment plan as this is amount patient says he can afford. Follow cultures Follow clinically. Yu Ivy MD March 12, 2017 14:32
--- NOTE | 2017-03-12 15:46 | HHI.NSPN ---
(Reji Paez Saranya HERMAN) Note Status Status: Progress Note (Reji Paez) Interval History Interval History 02/18: 61-year-old gentleman with history of a right retromastoid approach for resection of meningioma done approximately [address] Pacheco at [facility]. Patient states that a few days after surgery he developed swelling around the surgical area. The swelling and pain has gotten progressively worse within the last few days reason why he came to the emergency department last night for evaluation. MRI of the cervical spine from 02/17/2017 showed evidence of the right occipital craniotomy and a deflated collection in the craniotomy defect and overlying the soft tissues and the right upper cervical region. The fluid collection is approximately 476 cm in size and does not clearly communicate with the CSF spaces. The CT of the cervical spine also shows right hemilaminectomy defect at the C1 level and the right C1 arch and plates are loose within the fluid collection. Patient denies any neurological deficits. Started on empiric vancomycin and clindamycin. 02/19: Patient is awake & alert when seen this afternoon. He complains of neck pain, headache and numbness to the swelling on the right side of his head & neck. The patient does live in the [place] area but also stated "I don't want to deal with that samuel no more and he don't want to see me either." 02/20: Patient is doing well. He still complains of neck pain, headache with numbness above the swelling to the right side of the head & neck. 02/21: Patient continues to do well. He continues to have pain to the neck & back of the head with some numbness. He is currently on contact precautions due to a positive MRSA PCR per Nursing. 02/22: This morning the patient states he is doing well. He does have a headache that started last night. He continues to be on contact isolation. 02/24: Neuro stable overnight, continue to have pain and tenderness to the swollen site 02/25: no changes to surgical site but overall feeling a better. ID consulted yesterday noted. 02/26: Patient awake & alert, states he is doing "okay" today. Still with headache and pain to the back of the head. He endorsed some nausea earlier but none at present. A CXR this morning was unremarkable. He spiked a temp of 101.1 at midnight. A CBC was just drawn when the patient was seen. 02/27: Patient went for lumbar subarachnoid drain placement 02/28: Patient doing well this afternoon when seen. He finished a neb treatment just before being seen. He has pain to the back where the lumbar drain was inserted. He did say the right occipital swelling was better. 03/01: Patient states he is doing good this morning. He reports having an intermittent headache that is not bad. Today he has no complaint of the back pain at the drain insertion site. Infectious Disease adjusted his abx yesterday based upon the CSF analysis. 03/03: Pt awakens to voice. Complains of headache. No nausea or vomiting. No weakness in extremities. 03/04: Patient awake and alert. Complains of headache but not getting worse. No nausea vomiting. No paresthesias and face or extremities. 03/05: Patient awake & alert this afternoon. His only complaint is a headache. He states that the right occipital swelling is better. 03/09: Patient awake & alert when seen this afternoon and is doing good. His IV pump is going off and irritating him. He states that he has had some headache but none at present. He reports that the lumbar subarachnoid drain was removed yesterday. CSF was sent for culture. 03/12: Patient doing well this afternoon when seen. He denies any headache but does state the numbness to the right scalp above where the swelling was is still present without any change. (Reji Paez) Labs, Micro, & Vital Signs Constitutional Vital Signs Date Time Temp Pulse Resp B/P Pulse Ox O2 Delivery O2 Flow Rate FiO2 03/12/17 12:40 96.7 60 20 123/64 96 03/12/17 09:45 72 03/12/17 08:43 96.1 58 18 121/67 98 03/12/17 08:08 92 Nasal Cannula 2.00 03/12/17 06:29 20 03/12/17 06:22 Nasal Cannula 2.00 03/12/17 06:22 98.1 60 18 127/70 96 03/12/17 04:00 20 03/12/17 01:06 96.4 66 18 120/74 97 03/12/17 01:06 Nasal Cannula 2.00 03/11/17 21:32 96.8 72 21 122/78 94 03/11/17 21:32 Nasal Cannula 2.00 03/11/17 19:42 Nasal Cannula 2.00 03/11/17 15:57 97.8 66 20 139/86 95 03/12/17 07:00 Intake Total 360 ml Output Total 1200 ml Balance -840 ml (Reji Paez) Review of Systems/Exam ROS Constitutional: He denies any fever or chills. HEENT/Neck: He has some numbness to the scalp just above where the swelling was and that the swelling is basically gone to the right side of the head and neck. Respiratory: He denies any shortness of breath or productive cough. Cardiac: He denies any chest pain, palpitations or irregular heart beat. GI: He denies any abdominal pain, nausea, vomiting or bowel incontinence. : He denies any bladder incontinence. Back: He denies any back pain. Extremities: He denies any arm or leg pain or weakness. Neuro: He has some numbness to the scalp just above where the swelling was. He denies any headaches, dizziness or tingling. Exam General: Affect normal, readily interacts, NAD. HEENT/Neck: Right neck-suboccipital fluid collection resolved with some scalp erythema still present but better, scalp still numbness just above where the swelling was. Midline cervical spine minimally TTP, no nuchal rigidity. Respiratory: CTAB w/o W/R/R, equal excursion, non-laboured, on NC. CV: S1S2 w/RRR w/o M/G/R, radial & pedal pulses 2+ bilaterally, cap refill < 2 sec, no pedal edema. GI: Abdomen soft, nontender, obese, positive bowel sounds. Extremities: BLEVINS, no evident deformity, discolouration or clubbing. Back: NTTP at lumbar subarachnoid drain insertion site, no evident drainage, erythema, streaking or swelling, well-approximated with suture. Neuro: AAOx3. Speech clear & appropriate. Follows commands. Sensation grossly intact to light touch to the extremities. Motor strength 5/5 to LUE & BLE and 4+ /5 to RUE. (Reji Paez) Medications Current Medications Current Medications Medications (Trade) Dose Ordered Sig/Umu Route Start Time Stop Time Status Last Admin (NS Flush) 2 ml UNSCH PRN IV FLUSH 02/18/17 02:30 03/11/17 05:58 (NS Flush) 2 ml BID IV FLUSH 02/18/17 09:00 03/12/17 09:40 (Tylenol) 650 mg Q4H PRN PO 02/18/17 02:30 02/18/17 08:36 (Zofran Inj) 4 mg Q6H PRN IVP 02/18/17 02:30 (Narcan Inj) 0.4 mg UNSCH PRN IV 02/18/17 02:30 (D50w (Vial) Inj) 25 ml UNSCH PRN IV PUSH 02/18/17 02:30 (Glucagon Inj) 1 mg UNSCH PRN OTHER 02/18/17 02:30 (Xanax) 0.5 mg Q8H PRN PO 02/18/17 02:30 03/11/17 20:37 (Lioresal) 10 mg TID PRN PO 02/18/17 02:30 02/18/17 15:17 (Symbicort 160-4.5 Inh) 2 puff Q12HR INH 02/18/17 09:00 03/12/17 09:41 (Lanoxin) 0.125 mg DAILY PO 02/18/17 09:00 03/12/17 09:38 (Dilaudid Pf Inj) 0.5 mg Q4H PRN IV PUSH 02/18/17 16:00 03/12/17 05:59 (Mucinex Er) 600 mg BID PO 02/18/17 21:00 03/12/17 09:39 (Fioricet 325-50-40) 1 tab Q8H PRN PO 02/19/17 09:15 03/10/17 16:19 Mupirocin 1 applic 1 applic BID EACH NARE 02/21/17 21:00 03/12/17 09:40 Sodium Chloride 1,000 ml @ 84 mls/hr [id number] IV 02/26/17 14:30 03/12/17 14:24 (Vancomycin Consult Pharmacy) 0 ml @ 0 mls/hr UNSCH OTHER 02/28/17 10:15 Oxycodone/ Acetaminophen 1 tab 1 tab Q3HR PRN PO 03/03/17 11:20 03/12/17 14:25 (Vancomycin Inj/ NS 500 ml Inj) 517.5 ml @ 250 mls/hr Q18H IV 03/10/17 21:00 03/12/17 09:44 Miscellaneous Information SPECIFIC LAB TO BE AGNES... ONCE ONCE .XX 03/13/17 02:45 03/13/17 02:46 (Reji Paez) Medical Decision Making MDM Remarks 1. Prominent right occipital soft tissue fluid collection, fluid collection essentially resolved, significant improvement erythema. 2. Right hemilaminectomy defect at the C1 level w/the right C1 arch and plates loose within the fluid collection Elevated WBC, RBC & protein in CSF Infectious Disease feels partially treated meningitis Hyponatremia, improved CSF cultures w/o any growth to date, nothing on Gram stain Patient remains neurologically intact. Medicine feels patient is a low cardiac risk for any procedure Infectious Disease wants to continue IV abx at home Lumbar subarachnoid insertion site without any drainage or fluid collection in soft tissues (Reji Paez) Plan Plan Remarks Continue antibiotics per Infectious Disease. Pain management. Primary mgmt per Attending. Patient is able to be discharged home from NSGY's perspective and follow up in 1 week in the office. (Reji Paez) Attending Statement The exam, history, and the medical decision-making described in the above note were completed with the assistance of the mid-level provider. I reviewed and agree with the findings presented. I attest that I had a [id number] encounter with the patient on the same day, and personally performed and documented my assessment and findings in the medical record. Incision remains soft and dry. No further NS intervention planned at this time. February D/C home with OPT NS F/U (Jose De Jesus Perez MD) Reji Paez March 12, 2017 15:46 Jose De Jesus Perez MD Apr 24, 2017 16:24
[2017-03-13] MEDS: SODIUM CHLOR 0.9% 1000 ML INJ 1,000 ML IV SCH ×2 (00:05→12:00)
[2017-03-13] MEDS: ALPRAZolam 0.5 MG TAB PO PRN (00:24)
[2017-03-13] MEDS: oxyCODONE/ACETAMINOPHEN 10 MG/325 MG TAB PO PRN ×4 (00:24→16:54)
[2017-03-13 00:46] VITALS: BP 119/66; PULSE 65; RESP 19; TEMP 97.6; O2SAT 95
[2017-03-13] MEDS ORDERED: PHARMACY ORDERED LAB ONE (02:45)
[2017-03-13] MEDS: RESP: IPRATROPIUM 0.5 MG/2.5 ML NEB NEB SCH ×3 (03:25→13:04)
[2017-03-13 03:50] VITALS: O2SAT 95
[2017-03-13] MEDS: VANCOMYCIN INJ 1,750 MG in SODIUM CHLORID 0.9% 500 ML INJ 500 ML IV SCH (04:12)
[2017-03-13 04:45] LABS: VANCOMYCIN TROUGH 17.3 MCG/ML (5.0-10.0)
[2017-03-13 06:08] VITALS: BP 115/68; PULSE 65; RESP 18; TEMP 96.7; O2SAT 95
[2017-03-13] MEDS: INSULIN ASPART SUPPLEMENTAL SCALE SQ SCH ×2 (06:21→11:00)
[2017-03-13 07:26] VITALS: O2SAT 96
[2017-03-13 08:05] VITALS: BP 157/78; PULSE 59; RESP 20; TEMP 97.9; O2SAT 93
[2017-03-13] MEDS: HYDROmorphone HCL PF 1 MG/ML VIAL IV PUSH PRN (08:25)
[2017-03-13] MEDS: DIGOXIN 0.125 MG TAB PO SCH (08:25)
[2017-03-13] MEDS: MUPIROCIN 2% OINT 1 APPLIC/GM SYR EACH NARE SCH (08:26)
[2017-03-13] MEDS: BUDESONIDE-FORMOTEROL 160/4.5 MCG INHALER INH SCH (08:26)
[2017-03-13] MEDS: SODIUM CHLORIDE 0.9% FLUSH 10 ML FLUSH IV FLUSH SCH (08:26)
[2017-03-13] MEDS: guaiFENesin E.R. 600 MG TAB PO SCH (08:30)
[2017-03-13] MEDS ORDERED: SOLU250I IV PUSH (10:09)
[2017-03-13] MEDS ORDERED: EPIN1INJ21 IV PUSH (10:09)
[2017-03-13] MEDS ORDERED: EPIN1INJ21 SQ (10:09)
[2017-03-13] MEDS ORDERED: VANC10IN IV (10:09)
--- NOTE | 2017-03-13 10:21 | HHI.FF ---
Infusion Therapy Location of Infusion Therapy: [facility] IV Infusion Order Patient Information Appointment Date: March 13, 2017 Patient Weight 90.1 kg Diagnosis: Diagnosis Discitis Osteomyelitis of spine Coded Allergies: Penicillin (Verified Allergy, Unknown, 02/17/17) *MDRO Multi-Drug Resistant Organism (Verified Adverse Reaction, Unknown, ) MRSA PCR Screen POSITIVE - 03/10/2016, 02/19/2017 MRSA (sputum) - 03/2016 Administer Medication Vancomycin 1750 mg IV every 24 hours Start Treatment: March 13, 2017 Stop Treatment: Apr 03, 2017 Additional Information Venous access: PICC Line Additional Instructions [x] Peripheral flush and dressing changes per protocol [x] 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 [] May leave port accessed during therapy. [] May leave peripheral site accessed for duration of therapy. [x] If patient has SOB or respiratory distress, check oxygen saturation. If less than 90% or clinical signs of respiratory distress, administer oxygen at 2 L/min. via nasal cannula and notify physician. [x] Anaphylaxis/Reaction orders: * Stop infusion. * Keep IV line open with saline flush. * Notify physician. * Monitor vital signs every 15 minutes until symptoms resolve. * Check Oxygen saturation; Oxygen at 2 L/min. via nasal cannula if less than 90% or clinical signs of respiratory distress. * Administer diphenhydramine (Benadryl) 25 mg IV STAT, (unless patient has received as pre-med). May repeat once, if necessary. * Solu-Cortef 250 mg IVP over 30-60 seconds, use 100 mg vials for each dissolution. * Epinephrine (1mg/1 ml) 0.3 mg subcutaneously or IVP now with any signs of respiratory distress. * Check with physician for new additional pre-med orders if patient is re- challenged or re-treated. [x] May remove PICC line when treatment complete, after confirming with Physician. [x] If the patient is admitted to the hospital, the ED, or transferred via [facility] , complete transfer form including medication reconciliation order sheet. Laboratory Tests Weekly Labs: CBC w/diff, Creatinine, LFT's (Hepatic function test), Vancomycin Trough (target trough 15-20 for discitis) Additional Information Please draw weekly labs as above, fax results to number below, also call with abnormal labs, change in clinical condition or problems to: or covering ID Physician Follow up appt: Patient to schedule follow up appt with Neurosurgery Follow up with PCP Follow up with other MDs as planned. Counseling: Counseled about medication side effects Counseled about PICC line care and hand hygiene. Yu Ivy MD March 13, 2017 10:21
--- NOTE | 2017-03-13 10:50 | HHI.PR ---
Subjective Remarks resting comfortably with no distress. pain is controlled. no fever. no new complaints. Objective Vitals Vital Signs Date Time Temp Pulse Resp B/P Pulse Ox O2 Delivery O2 Flow Rate FiO2 03/13/17 08:05 97.9 59 20 157/78 93 03/13/17 07:26 96 Nasal Cannula 2.00 03/13/17 06:08 96.7 65 18 115/68 95 03/13/17 03:50 95 Nasal Cannula 2.00 03/13/17 00:46 97.6 65 19 119/66 95 03/12/17 23:39 Nasal Cannula 2.00 03/12/17 22:01 96.1 63 20 136/80 95 03/12/17 16:49 Nasal Cannula 2.00 03/12/17 16:14 96.6 65 17 135/80 95 03/12/17 15:53 96 Nasal Cannula 2.00 03/12/17 12:40 96.7 60 20 123/64 96 I/O 03/12/17 03/12/17 03/12/17 03/13/17 03/13/17 03/13/17 06:59 14:59 22:59 06:59 14:59 22:59 Intake Total 660 ml 740 ml Output Total 1200 ml 1600 ml Balance -1200 ml 660 ml -860 ml Intake Oral 660 ml 740 ml Output Urine Total 1200 ml 1600 ml # Bowel Movements 0 Result Diagram: 03/13/17 0355 Imaging Last Impressions Lumbar Puncture Fluoroscopy 02/27/17 1400 Signed Impressions: Service Date/Time: Monday, February 27, 2017 14:12 - CONCLUSION: Uncomplicated lumbar drain placement as above. Angel Dimas MD [facility] [place] Interventional Procedure 02/27/17 0000 Signed Impressions: Service Date/Time: Monday, February 27, 2017 14:36 - CONCLUSION: Uncomplicated ultrasound guided venous access. Angel Dimas MD Chest X-Ray 02/26/17 0000 Signed Impressions: Service Date/Time: Sunday, February 26, 2017 09:33 - CONCLUSION: No acute disease. Javon Balderas MD Neck CT 02/18/17 0000 Signed Impressions: Service Date/Time: Saturday, February 18, 2017 00:58 - CONCLUSION: 1. Right occipital craniotomy changes with an associated fluid collection as above, thought to most likely be a seroma. 2. The attempted fixation of the craniotomy bone fragment has failed. The bone fragment and 3 malleable plates are displaced into the fluid collection. There is a loose screw but the 3 plates appear attached to the craniotomy bone fragment by at least one screw each. Beau Valle MD Cervical Spine MRI 02/17/17 0000 Signed Impressions: Service Date/Time: Friday, February 17, 2017 23:37 - CONCLUSION: 1. Limited, abbreviated study. Patient refused further imaging before axial images were obtained and before contrast could be given. 2. Postop right occipital craniotomy with a fairly large fluid collection in the craniotomy defect and overlying soft tissues that is nonspecific but most likely a seroma. No definite communication with the CSF spaces. Mild mass effect on the right side of the cerebellum. Other than interdigitated mildly between the posterior processes of C1 and C2, the fluid collection does not significantly impact the cervical spine. 3. Multilevel cervical spine degenerative changes as above. There are mild degrees of spinal stenosis without cord compression or cord signal abnormality and multiple levels of upper moderate foraminal stenosis. Please see above. Beau Valle MD Brain MRI 02/17/17 0000 Signed Impressions: Service Date/Time: Friday, February 17, 2017 23:37 - CONCLUSION: 1. Limited, abbreviated study. Please see above. 2. Right occipital craniotomy defect with a fluid collection, presumably a seroma. 3. No bleed or evidence of infarct. 4. Sinus disease. Beau Valle MD Objective Remarks GENERAL: This is a well-nourished, well-developed patient, in no apparent distress. Head; mild swelling and erythema of the right suboccipital region. CARDIOVASCULAR: Regular rate and regular rhythm without murmurs, gallops, or rubs. RESPIRATORY: Clear to auscultation. Breath sounds equal bilaterally. No wheezes , rales, or rhonchi. GASTROINTESTINAL: Abdomen soft, non-tender, nondistended. Normal, active bowel sounds MUSCULOSKELETAL: Extremities without clubbing, cyanosis, or edema. NEURO: Alert & Oriented x4 to person, place, time, situation. Moves all ext x4 Procedures LP Medications and IVs Current Medications Sodium Chloride (NS 1000 ml Inj) 1,000 ml @ 999 mls/hr BOLUS ONCE IV Last administered on 02/17/17 21:40; Start 02/17/17 at 21:15; Stop 02/17/17 at 22:15 ; Status DC Ondansetron HCl (Zofran Inj) 4 mg ONCE ONCE IV PUSH Last administered on 21:40; Start 02/17/17 at 21:15; Stop 02/17/17 at 21:16; Status DC Albuterol/ Ipratropium (Duoneb Neb) 1 ampule Q15M INH Last administered on 02/17 21:29; Start 02/17/17 at 21:15; Stop 02/17/17 at 21:31; Status DC Morphine Sulfate 4 mg 4 mg ONCE ONCE IV PUSH Last administered on 02/17/17 21 :40; Start 02/17/17 at 21:30; Stop 02/17/17 at 21:31; Status DC Vancomycin HCl/ Sodium Chloride (Vancomycin Inj/ NS 250 ml Inj) 250 ml @ 250 mls/hr ONCE ONCE IV Last administered on 02/17/17 22:34; Start 02/17/17 at 22 :30; Stop 02/17/17 at 23:29; Status DC Potassium Chloride 40 meq 40 meq ONCE ONCE PO Last administered on 02/17/17 22:41; Start 02/17/17 at 22:30; Stop 02/17/17 at 22:31; Status DC Potassium Chloride 100 ml @ 100 mls/hr BOLUS ONCE IV Last administered on 00:35; Start 02/17/17 at 22:30; Stop 02/17/17 at 23:29; Status DC Clindamycin Phosphate 600 mg/ Sodium Chloride 104 ml @ 208 mls/hr ONCE ONCE IV Last administered on 02/18/17 02:23; Start 02/17/17 at 23:00; Stop at 23:29; Status DC Sodium Chloride (NS 500 ml Inj) 500 ml @ 500 mls/hr BOLUS ONCE IV Last administered on 02/18/17 00:35; Start 02/17/17 at 23:15; Stop 02/18/17 at 00:14 ; Status DC Hydromorphone HCl (Dilaudid Pf Inj) 0.5 mg ONCE ONCE IV PUSH Last administered on 02/17/17 23:27; Start 02/17/17 at 23:15; Stop 02/17/17 at 23:16 ; Status DC Iohexol (Omnipaque 350 Inj) 70 ml STK-MED ONCE IV Last administered on 01:05; Start 02/18/17 at 01:05; Stop 02/18/17 at 01:06; Status DC Sodium Chloride (NS Flush) 2 ml BID IV FLUSH ; Start 02/18/17 at 09:00; Stop at 09:00; Status DC Sodium Chloride (NS Flush) 2 ml UNSCH PRN IVF FLUSH AFTER USING IV ACCESS; Start 02/18/17 at 02:30; Stop 02/18/17 at 02:39; Status DC Sodium Chloride (NS Flush) 2 ml UNSCH PRN IV FLUSH FLUSH AFTER USING IV ACCESS Last administered on 03/11/17 05:58; Start 02/18/17 at 02:30 Sodium Chloride (NS Flush) 2 ml BID IV FLUSH Last administered on 03/13/17 08: 26; Start 02/18/17 at 09:00 Acetaminophen (Tylenol) 650 mg Q4H PRN PO TEMP > 100.4 Last administered on 08:36; Start 02/18/17 at 02:30 Ondansetron HCl (Zofran Inj) 4 mg Q6H PRN IVP NAUSEA OR VOMITING; Start at 02:30 Naloxone HCl 0.4 mg 0.4 mg UNSCH PRN IV SEE LABEL COMMENTS; Start 02/18/17 at 02:30 Clindamycin Phosphate 600 mg/ Sodium Chloride 104 ml @ 208 mls/hr Q8H IV Last administered on 02/25/17 10:50; Start 02/18/17 at 10:00; Stop 02/25/17 at 15:09; Status DC Pharmacy Profile Note (Vancomycin Consult Pharmacy) 0 ml @ 0 mls/hr UNSCH OTHER ; Start 02/18/17 at 02:30; Stop 02/25/17 at 15:09; Status DC Dextrose (D50w (Vial) Inj) 25 ml UNSCH PRN IV PUSH HYPOGLYCEMIA-SEE COMMENTS; Start 02/18/17 at 02:30 Glucagon (Glucagon Inj) 1 mg UNSCH PRN OTHER HYPOGLYCEMIA-SEE COMMENTS; Start 02/18/17 at 02:30 Insulin Aspart (NovoLOG SUPPLEMENTAL SCALE) 1 ACHS SLIDING SCALE SQ Last administered on 03/12/17 21:00; Start 02/18/17 at 07:00 Alprazolam (Xanax) 0.5 mg Q8H PRN PO ANXIETY Last administered on 03/13/17 00: 24; Start 02/18/17 at 02:30 Baclofen (Lioresal) 10 mg TID PRN PO MUSCLE SPASM Last administered on 15:17; Start 02/18/17 at 02:30 Budesonide/ Formoterol Fumarate (Symbicort 160-4.5 Inh) 2 puff Q12HR INH Last administered on 03/13/17 08:26; Start 02/18/17 at 09:00 Digoxin (Lanoxin) 0.125 mg DAILY PO Last administered on 03/13/17 08:25; Start 02/18/17 at 09:00 Hydrochlorothiazide (Hydrodiuril) 25 mg DAILY PO Last administered on 02/25/17 08:31; Start 02/18/17 at 09:00; Stop 02/26/17 at 14:29; Status DC Acetaminophen (Tylenol) 650 mg ONCE ONCE PO Last administered on 02/18/17 02: 42; Start 02/18/17 at 02:45; Stop 02/18/17 at 02:46; Status DC Albuterol/ Ipratropium 1 ampule 1 ampule Q2HR NEB PRN NEB SOB/WHEEZING Last administered on 03/04/17 08:17; Start 02/18/17 at 05:30; Stop 03/04/17 at 09:55 ; Status DC Vancomycin HCl/ Sodium Chloride (Vancomycin Inj/ NS 250 ml Inj) 250 ml @ 250 mls/hr Q12H IV Last administered on 02/20/17 11:39; Start 02/18/17 at 11:00; Stop 02/20/17 at 15:06; Status DC Miscellaneous Information SPECIFIC LAB TO BE DRAWN:VANCOMY... ONCE ONCE .XX Last administered on 02/19/17 10:45; Start 02/19/17 at 10:45; Stop 02/19/17 at 10: 46; Status DC Sodium Chloride (NS 1000 ml Inj) 1,000 ml @ 42 mls/hr [id number] IV Last administered on 02/24/17 12:36; Start 02/18/17 at 15:30; Stop 02/25/17 at 12:44; Status DC Hydromorphone HCl (Dilaudid Pf Inj) 0.5 mg Q4H PRN IV PUSH BREAKTHROUGH PAIN Last administered on 03/13/17 08:25; Start 02/18/17 at 16:00 Acetaminophen/ Hydrocodone Bitart ([place] 10-325 Mg) 1 tab Q4H PRN PO PAIN SCALE 4 TO 10 Last administered on 02/18/17 16:33; Start 02/18/17 at 16:00; Stop 02/18/17 at 17:08; Status DC Oxycodone/ Acetaminophen (Percocet 10-325 Mg) 1 tab Q4H PRN PO PAIN SCALE 4 TO 10 Last administered on 03/03/17 08:46; Start 02/18/17 at 20:00; Stop 03/03/17 at 11:16; Status DC Potassium Chloride 40 meq 40 meq ONCE ONCE PO Last administered on 02/18/17 18:05; Start 02/18/17 at 17:15; Stop 02/18/17 at 17:21; Status DC Sodium Phosphate/ Sodium Chloride (Sodium Phosphate Inj/NS Inj) 155 ml @ 38.75 mls/ hr ONCE ONCE IV Last administered on 02/18/17 21:00; Start 02/18/17 at 17:15; Stop 02/18/17 at 21:14; Status DC Albuterol/ Ipratropium (Duoneb Neb) 1 ampule Q6HR NEB NEB Last administered on 02/22/17 16:03; Start 02/18/17 at 18:00; Stop 02/22/17 at 18:00; Status DC Guaifenesin (Mucinex Er) 600 mg BID PO Last administered on 03/13/17 08:30; Start 02/18/17 at 21:00 Acetaminophen/ Butalbital/ Caffeine (Fioricet 325-50-40) 1 tab Q8H PRN PO HEADACHE Last administered on 03/10/17 16:19; Start 02/19/17 at 09:15 Potassium Chloride (KCl) 40 meq ONCE ONCE PO Last administered on 02/19/17 10: 50; Start 02/19/17 at 09:30; Stop 02/19/17 at 09:31; Status DC Potassium Chloride 20 meq 20 meq ONCE ONCE PO Last administered on 02/19/17 10 :50; Start 02/19/17 at 11:30; Stop 02/19/17 at 11:31; Status DC Vancomycin HCl/ Sodium Chloride (Vancomycin Inj/ NS 250 ml Inj) 262.5 ml @ 250 mls/hr Q12H IV Last administered on 02/21/17 22:40; Start 02/20/17 at 23:00; Stop 02/22/17 at 12:47; Status DC Miscellaneous Information SPECIFIC LAB TO BE DRAWN:VANCOMYCIN TROUGH DATE TO... ONCE ONCE .XX Last administered on 02/22/17 10:45; Start 02/22/17 at 10:45; Stop 02/22/17 at 10:46; Status DC Mupirocin (Bactroban Nasal 2% Oint) 1 applic BID EACH NARE Last administered on 03/13/17 08:26; Start 02/21/17 at 21:00 Heparin Sodium (Porcine) 5000 units 5,000 units Q8HR SQ Last administered on 06:30; Start 02/22/17 at 14:00; Stop 02/27/17 at 09:41; Status DC Vancomycin HCl 1000 mg/Sodium Chloride 250 ml @ 250 mls/hr Q12H IV ; Start 02/22 at 16:00; Stop 02/22/17 at 18:08; Status DC Vancomycin HCl/ Sodium Chloride (Vancomycin Inj/ NS 250 ml Inj) 250 ml @ 250 mls/hr Q12H IV Last administered on 02/25/17 08:30; Start 02/22/17 at 20:00; Stop 02/25/17 at 15:09; Status DC Albuterol/ Ipratropium (Duoneb Neb) 1 ampule Q4HR NEB NEB Last administered on 03/02/17 11:49; Start 02/23/17 at 12:00; Stop 03/02/17 at 14:29; Status DC Warfarin Sodium (Coumadin) 10 mg DAILY PO ; Start 02/24/17 at 14:00; Stop at 14:00; Status DC Warfarin Sodium (Coumadin) 10 mg DAILY PO Last administered on 02/24/17 16:23; Start 02/24/17 at 16:00; Stop 02/25/17 at 07:45; Status DC Warfarin Sodium (Coumadin) 10 mg DAILY@1600 PO Last administered on 02/26/17 17 :26; Start 02/25/17 at 16:00; Stop 02/27/17 at 09:41; Status DC Patient Medication Teaching (Coumadin Booklet) 1 ONCE ONCE .XX Last administered on 02/25/17 16:07; Start 02/25/17 at 16:00; Stop 02/25/17 at 16:01; Status DC Clindamycin HCl 450 mg 450 mg Q6HR PO Last administered on 02/28/17 06:11; Start 02/25/17 at 18:00; Stop 02/28/17 at 10:12; Status DC Sodium Chloride 1,000 ml @ 84 mls/hr [id number] IV Last administered on 14:24; Start 02/26/17 at 14:30 Pharmacy Profile Note (Coumadin Consult Pharmacy) 0 ml @ 0 mls/hr UNSCH OTHER ; Start 02/26/17 at 14:30; Stop 03/03/17 at 16:15; Status DC Warfarin Sodium (Coumadin) 2 mg ONCE PO ; Start 02/27/17 at 16:00; Stop 02/27/17 at 16:00; Status DC Midazolam HCl (Versed Inj) 5 mg STK-MED ONCE .ROUTE ; Start 02/27/17 at 14:36; Stop 02/27/17 at 14:37; Status DC Fentanyl Citrate (fentaNYL INJ) 250 mcg STK-MED ONCE .ROUTE ; Start 02/27/17 at 14:36; Stop 02/27/17 at 14:37; Status DC Vancomycin HCl 1000 mg 1,000 mg STK-MED ONCE .ROUTE ; Start 02/27/17 at 15:10; Stop 02/27/17 at 15:11; Status DC Sodium Chloride 250 ml @ As Directed STK-MED ONCE .ROUTE ; Start 02/27/17 at 15: 11; Stop 02/27/17 at 15:12; Status DC Pharmacy Profile Note 0 ml @ 0 mls/hr UNSCH OTHER ; Start 02/28/17 at 10:15 Vancomycin HCl/ Sodium Chloride (Vancomycin Inj/ NS 500 ml Inj) 515 ml @ 250 mls/hr Q12H IV Last administered on 03/07/17 03:34; Start 02/28/17 at 13:00; Stop 03/07/17 at 08:29; Status DC Miscellaneous Information SPECIFIC LAB TO BE DRAWN:VANCOMYCIN TROUGH DATE TO... ONCE ONCE .XX Last administered on 03/02/17 00:45; Start 03/02/17 at 00:45; Stop 03/02/17 at 00:46; Status DC Miscellaneous Information SPECIFIC LAB TO BE DRAWN:VANCO TROUGH DATE TO BE DR... ONCE ONCE .XX Last administered on 03/04/17 01:35; Start 03/04/17 at 00 :45; Stop 03/04/17 at 00:46; Status DC Oxycodone/ Acetaminophen (Percocet 10-325 Mg) 1 tab Q3HR PRN PO PAIN SCALE 4 TO 10 Last administered on 03/13/17 10:06; Start 03/03/17 at 11:20 Ipratropium [place] (Atrovent Neb) 0.5 mg Q4HR NEB NEB Last administered on 07:26; Start 03/04/17 at 12:00 Miscellaneous Information SPECIFIC LAB TO BE DRAWN:VANCOMYCIN TROUGH DATE TO... ONCE ONCE .XX Last administered on 03/07/17 00:45; Start 03/07/17 at 00:45; Stop 03/07/17 at 00:46; Status DC Vancomycin HCl/ Sodium Chloride (Vancomycin Inj/ NS 500 ml Inj) 515 ml @ 250 mls/hr Q18H IV Last administered on 03/10/17 03:41; Start 03/07/17 at 21:00; Stop 03/10/17 at 11:12; Status DC Miscellaneous Information SPECIFIC LAB TO BE DRAWN:VANCOMYCIN TROUGH DATE TO... ONCE ONCE .XX Last administered on 03/10/17 03:41; Start 03/10/17 at 02:45; Stop 03/10/17 at 02:46; Status DC Vancomycin HCl/ Sodium Chloride (Vancomycin Inj/ NS 500 ml Inj) 517.5 ml @ 250 mls/hr Q18H IV Last administered on 03/13/17 04:12; Start 03/10/17 at 21:00 Miscellaneous Information SPECIFIC LAB TO BE ... ONCE ONCE .XX Last administered on 03/13/17t 02:45; Start 03/13/17 at 02:45; Stop 03/13/17 at 02:46 ; Status DC Lidocaine HCl (Xylocaine 1% Inj (50 ml)) 50 ml STK-MED ONCE .ROUTE ; Start 03/10 at 17:06; Stop 03/10/17 at 17:07; Status DC Lidocaine HCl (Xylocaine 1% Inj (50 ml)) 50 ml ONCE ONCE INFIL ; Start at 17:15; Stop 03/10/17 at 17:16; Status DC A/P Assessment and Plan A/P 1. Questionable Cellulitis and Abscess in the site of Drain post Meningioma removal from Brain stem / partially treated meningitis blood cultures negative so far. continue IV Vancomycin-till per ID recommendations. cleared by neurosurgery for discharge with outpatient follow-up. 2. DM II continue sliding scale, continue Insulin. Hemoglobin A1C 6.3 3. COPD to continue Bronchodilator, Mucolytic and incentive spirometry. scheduled Ipratropium bromide 4. Hepatitis C by history 5. Hypertension controlled. 6. history of Traumatic Brain injury 7. Seizure disorder to continue Home medicines 8. Atrial Fibrillation at this time sinus rhythm- will resume when ok with neurosurgery. DVT prophylaxis with SCD's. Discharge Planning dc home when outpatient IV antibiotic therapy has been arranged. see med list. f/u with pcp and neurosurgery. d/w the patient and case management. time spent 33 min. Pushpa Culver MD March 13, 2017 10:50
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
--- NOTE | 2017-03-13 11:12 | HHI.FF ---
Face to Face Verification Diagnosis: (1) Seroma Home Health Nursing Order: Medical education Signs/symptoms of disease process IV medication administration I have seen patient Ari Zarate on 03/13/17. My clinical findings support the need for the requested home health care services because: Ltd mobility - disease progression I certify that my clinical findings support that this patient is homebound because: Hx COPD- exertion dyspnea/weakness Pushpa Culver MD March 13, 2017 10:57
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
[2017-03-13 12:19] VITALS: BP 144/79; PULSE 72; RESP 17; TEMP 96.2; O2SAT 96
[2017-03-13] MEDS ORDERED: SODIUM CHLORIDE 0.9% FLUSH 10 ML FLUSH IV FLUSH PRN (12:30)
--- NOTE | 2017-03-13 12:56 | RADRPT ---
EXAM DATE/TIME: 03/13/2017 12:30 [place] COMPARISON: CHEST SINGLE AP, February 26, 2017, 9:33. INDICATIONS : Post PICC line placement. MEDICAL HISTORY : Hypertension. Chronic obstructive pulmonary disease. Congestive heart failure. Diabetes. Seizures . Hep C. Afib. SURGICAL HISTORY : None. ENCOUNTER: Subsequent ACUITY: 1 day PAIN SCORE: 0/10 LOCATION: Bilateral chest FINDINGS: Portable AP view of the chest demonstrates a normal-sized cardiac silhouette. Right upper trauma the PICC distal tip is in the mid SVC. Lungs are mildly hyperinflated. No pneumothorax, effusion, or airs pace consolidation is seen. CONCLUSION: Right upper extremity PICC distal tip is in appropriate location in the mid SVC. Beau Rodriguez MD on March 13, 2017 at 12:53 Board Certified Radiologist. This report was verified electronically.
--- NOTE | 2017-03-13 16:36 | HHI.FF ---
Face to Face Verification Diagnosis: (1) Discitis (2) [facility] Order: Medical education Signs/symptoms of disease process IV medication administration Instructions: PT/INR monitoring. I have seen patient Ari Zarate on 03/13/17. My clinical findings support the need for the requested home health care services because: Ltd mobility - disease progression I certify that my clinical findings support that this patient is homebound because: Hx COPD- exertion dyspnea/weakness Pushpa Culver MD March 13, 2017 16:36
[2017-03-14] MEDS ORDERED: SODIUM CHLORIDE 0.9% FLUSH 10 ML FLUSH IV FLUSH SCH (09:00)
[2017-03-30] MEDS ORDERED: OXYC1TAB36 PO (14:59)
== END 2017-03-13 17:08 | disposition home health service (06) | DRG 919 ==
LOC: NEPC 19:37 → NEDA 02-18 02:27 → N06B 02-18 04:23 → N05A 02-27 17:44
PROVIDERS: ADMIT Internal Medicine; ATTEND Internal Medicine
PROC: 009U30Z Drainage of Spinal Canal with Drainage Device, Percutaneous Approach (ICD-10-PCS; principal; 2017-02-27)
PROC: B01BZZZ Fluoroscopy of Spinal Cord (ICD-10-PCS; 2017-02-27)
DX: G97.63 Postprocedural seroma of a nervous system organ or structure following a nervous system procedure (principal); G03.9 Meningitis, unspecified; E11.69 Type 2 diabetes mellitus with other specified complication; E87.1 Hypo-osmolality and hyponatremia; M86.9 Osteomyelitis, unspecified; I11.0 Hypertensive heart disease with heart failure; I50.9 Heart failure, unspecified; G96.0 Cerebrospinal fluid leak; I48.2 Chronic atrial fibrillation; L03.811 Cellulitis of head [any part, except face]; J98.11 Atelectasis; T81.31XA Disruption of external operation (surgical) wound, not elsewhere classified, initial encounter; T84.226A Displacement of internal fixation device of vertebrae, initial encounter; Z99.81 Dependence on supplemental oxygen; M46.42 Discitis, unspecified, cervical region; G96.19 Other disorders of meninges, not elsewhere classified; E87.6 Hypokalemia; G40.909 Epilepsy, unspecified, not intractable, without status epilepticus; J44.9 Chronic obstructive pulmonary disease, unspecified; Y83.8 Other surgical procedures as the cause of abnormal reaction of the patient, or of later complication, without mention of misadventure at the time of the procedure; Z22.322 Carrier or suspected carrier of Methicillin resistant Staphylococcus aureus; Z79.4 Long term (current) use of insulin; Z79.01 Long term (current) use of anticoagulants; Z86.011 Personal history of benign neoplasm of the brain; Z86.19 Personal history of other infectious and parasitic diseases; Z86.14 Personal history of Methicillin resistant Staphylococcus aureus infection; Z87.820 Personal history of traumatic brain injury; Z88.0 Allergy status to penicillin
CPT/HCPCS: 36410; 36569; 63741; 70491; 70551; 70553; 71010; 72141; 72156; 76937; 77003; 80048; 80053; 80162; 80202; 82565; 82945; 82948; 83036; 83605; 83735; 84100; 84132; 84145; 84157; 85025; 85610; 85730; 86140; 87015; 87040; 87070; 87102; 87116; 87205; 87206; 87641; 89051; 93005; 94150; 94640; 94664; 96365; 96367; 96374; 96375; 99152; 99153; C1755; J1170; J1644; J1815; J2250; J2270; J2405; J3010; J3370; J3480; J7030; J7040; J7050; J7644; Q9967